=== PATIENT | male | born 1990 | race Hispanic/Latino ===

== ENCOUNTER 2016-11-17 17:55 | Emergency (ER) | payer BC ==
[2016-11-17 18:08] VITALS: BMI 20.8
[2016-11-17 18:11] VITALS: TEMP 98.5
--- NOTE | 2016-11-17 18:44 | ED PDOC ---
Arrival/HPI - General Chief Complaint: Male Genitourinary Time Seen by Provider: 11/17/16 18:16 Historian: Patient - History of Present Illness Narrative History of Present Illness (Text): 11/17/16 18:40 Patient is a 26 yo male presents to ED stating that this morning he experience sudden onset of left testicle pain, worse with ambulation and now radiating to left groin. Pain sharp and stabbing. Denies hematuria or dysuria. Denies rash. Denies swelling. Denies prior history of urinary tract infection or STD. Denies masses or swelling. Denies flank pain. Time/Duration: Prior to Arrival Symptom Onset: Sudden Past Medical History - Provider Review Nursing Documentation Reviewed: Yes - Infectious Disease Hx of Infectious Diseases: None - Tetanus Immunization Tetanus Immunization: Unknown - Past Medical History Past Medical History: No Previous - Cardiac Hx Cardiac Disorders: No - Pulmonary Hx Respiratory Disorders: No - Neurological Hx Neurological Disorder: No - HEENT Hx HEENT Disorder: No - Renal Hx Renal Disorder: No - Endocrine/Metabolic Hx Endocrine Disorders: No - Hematological/Oncological Hx Blood Transfusions: No Hx Blood Transfusion Reaction: No - Integumentary Hx Dermatological Disorder: No - Musculoskeletal/Rheumatological Hx Musculoskeletal Disorders: No Hx Falls: No - Gastrointestinal Hx Gastrointestinal Disorders: No - Genitourinary/Gynecological Hx Genitourinary Disorders: No - Psychiatric Hx Depression: Yes Hx Substance Use: No - Past Surgical History Past Surgical History: No Previous - Surgical History Hx Appendectomy: Yes - Anesthesia Hx Anesthesia Reactions: No Hx Malignant Hyperthermia: No - Suicidal Assessment Feels Threatened In Home Enviroment: No Family/Social History - Physician Review Nursing Documentation Reviewed: Yes Family/Social History: No Known Family HX Smoking Status: Current Some Days Smoker Hx Alcohol Use: Yes Frequency of alcohol use: Socially Amount per day: 4 Hx Substance Use: No Hx Substance Use Treatment: No Allergies/Home Meds Allergies/Adverse Reactions: Allergies No Known Allergies Allergy (Verified 05/14/13 15:46) Review of Systems - Review of Systems Constitutional: absent: Fevers Eyes: absent: Vision Changes Respiratory: absent: SOB Cardiovascular: absent: Chest Pain Gastrointestinal: Abdominal Pain (left inguinal pain). absent: Nausea, Vomiting Genitourinary Male: Other (left testicle pain). absent: Dysuria, Frequency, Hematuria, Urinary Output Changes Musculoskeletal: absent: Back Pain, Neck Pain Skin: absent: Rash Neurological: absent: Headache, Focal Weakness Hemo/Lymphatic: absent: Easy Bleeding Physical Exam Vital Signs Reviewed: Yes Vital Signs Temp Pulse Resp BP Pulse Ox 11/17/16 20:52 88 18 116/66 96 11/17/16 19:00 89 18 106/71 97 11/17/16 17:55 98.5 F 99 H 16 104/69 97 Temperature: Afebrile Pain Distress: Mild - Systems Exam Head: Present: Atraumatic Mouth: Present: Moist Mucous Membranes Neck: Present: Normal Range of Motion Respiratory/Chest: Present: Clear to Auscultation. No: Respiratory Distress Cardiovascular: Present: Regular Rate and Rhythm Abdomen: Present: Normal Bowel Sounds, Other. No: Tenderness, Distention, Peritoneal Signs Rectal: No: Gross Blood Genitourinary Male: Present: Testicle Tenderness, Other (focal tenderness on palpation of left testicle superiorly, no edema or erythema, cremaster reflex is intact). No: Penile Discharge, Penile Swelling, Masses, Erythema, Hernias, Testicle Swelling Neurological: Present: Motor Func Grossly Intact, Normal Sensory Function, Other (cremaster intact) Psychiatric: Present: Alert, Normal Concentration Medical Decision Making ED Course and Treatment: 11/17/16 21:50 Impression: Patient is a 26 yo male, sexually active, single partner, denies prior history of UTI or STDs, presents with sudden onset of left testicle pain radiating to groin. No rash noted. Exam not consistent with torsion. Denies urinary difficulty. Denies lifting or exertion today. No incarcerated hernias palpated. Differential Diagnosis included but are not limited to: Epididymitis, cyst, hernia, muscle strain Plan: ultrasound and urinalysis, ct abdomen/pelvis pending ultrasound results. Progress Notes: CT Abdomen and Pelvis Without Intravenous Contrast EXAM DATE/TIME: 11/17/2016 7:44 PM COMPARISON: No relevant prior studies available. FINDINGS: LOWER THORAX: No infiltrate seen in the lung bases. ABDOMEN: LIVER: No acute abnormality of the liver identified. GALLBLADDER AND BILE DUCTS: No CT evidence of acute cholecystitis. No evidence of significant biliary ductal dilatation. PANCREAS: No CT evidence of acute pancreatitis. SPLEEN: No acute abnormality of the spleen identified. ADRENALS: No acute abnormality of the adrenal glands identified. KIDNEYS AND URETERS: No acute abnormality of the kidneys seen. No renal stones, hydronephrosis, or hydroureter seen. STOMACH AND BOWEL: No acute abnormality of the stomach, small bowel or colon identified. No evidence of bowel obstruction. APPENDIX: Normal appendix is not seen, and there is a reported history of previous appendectomy. PELVIS: BLADDER: No acute abnormality of the bladder identified. REPRODUCTIVE: No acute abnormality of the reproductive organs is seen. ABDOMEN and PELVIS: INTRAPERITONEAL SPACE: No evidence of free intraperitoneal air or fluid. BONES/JOINTS: No acute fractures or other acute bony abnormality noted. SOFT TISSUES: No acute abnormality of the visualized soft tissues is seen. VASCULATURE: No evidence of abdominal aortic aneurysm. No evidence of periaortic hemorrhage. LYMPH NODES: No evidence of diffuse lymphadenopathy. IMPRESSION: - No evidence of significant acute process on this unenhanced exam. No definite cause for pain identified. - See above for remaining findings. US Scrotum EXAM DATE/TIME: 11/17/2016 6:23 PM FINDINGS: Right testicle: Measures 4.3 x 2.4 x 2.4 cm. Demonstrates scattered, tiny echogenic foci, most compatible with testicular microcalcifications. Otherwise within normal limits in appearance. No masses visualized. Flow seen in the right testicle on color and Doppler imaging , with no evidence of torsion. Right epididymis: Within normal limits in appearance. Head measures 1.3 x 1.0 cm. Left testicle: Measures 4.4 x 2.3 x 2.7 cm. Demonstrates scattered, tiny echogenic foci, most compatible with testicular microcalcifications. Otherwise within normal limits in appearance. No masses visualized. Flow seen in the left testicle on color and Doppler imaging, with no evidence of torsion. Left epididymis: Within normal limits in appearance. Head measures 1.4 x 1.1 cm. Hydrocoele: None seen. Varicocele: None seen. IMPRESSION: No evidence of testicular torsion or other acute abnormality. Findings consistent with bilateral testicular microlithiasis. There are scattered microcalcifications in the testes bilaterally. This finding has a questionable association with testicular carcinoma. If the patient has any risk factors for testicular carcinoma, such as undescended testes, recommended followup ultrasound for surveillance. See above for remaining findings. I have discussed in length patient's ultrasound findings, specifically reading of microlithiasis. I discussed risks associated with this but also reached out to on-call urologist Dr. Pearl Hanson and arranged outpatient follow-up in 2 days for abnormal ultrasound findings as well as pain. On re-exam, pain improved. No edema or erythema. Advised NSAIDS and elevation. Cannot exclude epididymitis given location and specific pain. No incarcerated hernia palpated. NO rash palpated. No penile discharge or dysuria reported. Patient discharged with all questions answered as well as need for follow-up with urologist expressed and understood. - Lab Interpretations Microbiology Results: Microbiology Results 11/17/16 18:55 Urine Urine Culture - Final No Growth (<1,000 CFU/ML) Lab Results: 11/17/16 20:20 11/17/16 20:20 Lab Results 11/17/16 20:20: Sodium 141, Potassium 3.8, Chloride 105, Carbon Dioxide 25, Anion Gap 15, BUN 20, Creatinine 1.2, Est GFR ( Amer) > 60, Est GFR (Non- Af Amer) > 60, Random Glucose 97, Calcium 9.3, Total Bilirubin 0.2, AST 16, ALT 28, Alkaline Phosphatase 73, Total Protein 6.5, Albumin 4.4, Globulin 2.2, Albumin/Globulin Ratio 2.0 H 11/17/16 20:20: WBC 5.3, RBC 5.35, Hgb 14.6, Hct 42.4, MCV 79.3 L, MCH 27.3, MCHC 34.4, RDW 12.6, Plt Count 201, MPV 10.8, Gran % 50.3, Lymph % (Auto) 39.7 H , Braxton % (Auto) 7.7 H, Eos % (Auto) 2.1, Baso % (Auto) 0.2, Gran # 2.68, Lymph # 2.1, Braxton # 0.4, Eos # 0.1, Baso # 0.01 11/17/16 18:55: Urine Color Yellow, Urine Appearance Clear, Urine pH 6.0, Ur Specific [place] 1.025, Urine Protein Negative, Urine Glucose (UA) Negative, Urine Ketones Negative, Urine Blood Negative, Urine Nitrate Negative, Urine Bilirubin Negative, Urine Urobilinogen 0.2, Ur Leukocyte Esterase Negative - RAD Interpretation Radiology Orders: 11/17/16 18:23 TESTES DUPLEX COMPLETE [US] Stat 11/17/16 19:44 ABD & PELVIS W/O PO OR IV CONT [CT] Stat - Medication Orders Current Medication Orders: Discontinued Medications Ibuprofen (Motrin Tab) 400 mg PO ONCE STA Stop: 11/17/16 18:26 Last Admin: 11/17/16 18:59 Dose: 400 mg - Scribe Statement The provider has reviewed the documentation as recorded by the Erin Sampson Provider Scribe Attestation: All medical record entries made by the Scribe were at my direction and personally dictated by me. I have reviewed the chart and agree that the record accurately reflects my personal performance of the history, physical exam, medical decision making, and the department course for this patient. I have also personally directed, reviewed, and agree with the discharge instructions and disposition. Disposition/Present on Arrival - Present on Arrival Any Indicators Present on Arrival: No History of DVT/PE: No History of Uncontrolled Diabetes: No Urinary Catheter: No History of Decub. Ulcer: No History Surgical Site Infection Following: None - Disposition Have Diagnosis and Disposition been Completed?: Yes Diagnosis: Testicle pain, Testicular microlithiasis, Groin pain Disposition: HOME/ ROUTINE Disposition Time: 20:00 Patient Plan: Discharge Condition: GOOD Discharge Instructions (ExitCare): Epididymitis (ED), Testicle Pain (ED) Additional Instructions: Follow-up with urologist Dr. Ovidio Hanson this SATURDAY, call Dr. Hanson at [phone] on Saturday to set up appointment. Results of ultrasound have been reviewed with you, please follow-up findings of "microlithiasis" with urologist. If you develop any swelling or redness to testicle, any change or increase in pain, any masses to groin or testicle, any rash, any flank or abdominal pain, any nausea or vomiting, any difficulty urinating, any persistent or worsening of symptoms, get rechecked. Take antibiotics as directed. Take ibuprofen every 6-8 hours as needed for pain. Keep testicle elevated. No heavy lifting or strenuous activity or sexual activity until cleared by urologist. Prescriptions: levoFLOXacin [Levaquin] 500 mg PO DAILY #10 tab Ibuprofen [Motrin Tab] 400 mg PO Q8 PRN #12 tab PRN Reason: Pain, Mild (1-3) Referrals: PCP,NO [Non-Staff] - Follow up with primary Vaughn Hanson MD [Staff Provider] - Follow up with primary Forms: [employer] ([place])
[2016-11-17 19:01] VITALS: RESP 18
[2016-11-17 19:33] LABS: URINE BILIRUBIN NEGATIVE (NEGATIVE); URINE BLOOD NEGATIVE (NEGATIVE); URINE GLUCOSE (UA) NEGATIVE (NEGATIVE); URINE KETONE NEGATIVE (NEGATIVE); URINE LEUKOCYTE ESTERASE NEGATIVE Leu/uL (NEGATIVE); URINE PROTEIN NEGATIVE mg/dL (<30 mg/dL); URINE UROBILINOGEN 0.2 E.U./dL (<1 E.U./dL)
[2016-11-17 19:36] LABS: URINE APPEARANCE CLEAR (CLEAR); URINE COLOR YELLOW (YELLOW)
--- NOTE | 2016-11-17 19:41 | US ---
EXAM: US Scrotum EXAM DATE/TIME: 11/17/2016 6:23 PM CLINICAL HISTORY: 26 years old, male; Pain; Scrotum pain; Additional info: Left testicle pain TECHNIQUE: Real-time ultrasound of the scrotum with color Doppler and image documentation. COMPARISON: No relevant prior studies available. FINDINGS: Right testicle: Measures 4.3 x 2.4 x 2.4 cm. Demonstrates scattered, tiny echogenic foci, most compatible with testicular microcalcifications. Otherwise within normal limits in appearance. No masses visualized. Flow seen in the right testicle on color and Doppler imaging, with no evidence of torsion. Right epididymis: Within normal limits in appearance. Head measures 1.3 x 1.0 cm. Left testicle: Measures 4.4 x 2.3 x 2.7 cm. Demonstrates scattered, tiny echogenic foci, most compatible with testicular microcalcifications. Otherwise within normal limits in appearance. No masses visualized. Flow seen in the left testicle on color and Doppler imaging, with no evidence of torsion. Left epididymis: Within normal limits in appearance. Head measures 1.4 x 1.1 cm. Hydrocoele: None seen. Varicocele: None seen. IMPRESSION: No evidence of testicular torsion or other acute abnormality. Findings consistent with bilateral testicular microlithiasis. There are scattered microcalcifications in the testes bilaterally. This finding has a questionable association with testicular carcinoma. If the patient has any risk factors for testicular carcinoma, such as undescended testes, recommended followup ultrasound for surveillance. See above for remaining findings.
[2016-11-17 20:32] LABS: BASO # 0.01 K/mm3 (0.0-2.0); BASO % 0.2 % (0.0-3.0); EOS # 0.1 (0.0-0.7); EOS % 2.1 % (1.5-5.0); GRAN # 2.68 (1.4-6.5); GRAN % 50.3 % (50.0-68.0); HEMATOCRIT 42.4 % (42.0-52.0); LYMPH # 2.1 (1.2-3.4); LYMPH % 39.7 % (22.0-35.0); MEAN CELL VOLUME 79.3 fl (80.0-105.0); MEAN CORPUSCULAR HEMOGLOBIN 27.3 pg (25.0-35.0); MEAN CORPUSCULAR HGB CONC 34.4 g/dl (31.0-37.0); MEAN PLATELET VOLUME 10.8 fl (7.0-11.0); MONO # 0.4 (0.1-0.6); MONO % 7.7 % (1.0-6.0); RED CELL DISTRIBUTION WIDTH 12.6 % (11.5-14.5); WHITE BLOOD COUNT 5.3 10^3/ul (4.5-11.0)
[2016-11-17 20:42] LABS: ALKALINE PHOSPHATASE 73 U/L (38-133); ALT/SGPT 28 U/L (7-56); AST/SGOT 16 U/L (15-59); BILIRUBIN,TOTAL 0.2 mg/dL (0.2-1.3); BLOOD UREA NITROGEN 20 mg/dL (7-21); CALCIUM 9.3 mg/dL (8.4-10.5); CARBON DIOXIDE 25 mmol/L (21-33); CHLORIDE 105 mmol/L (98-107); GFR AFRICAN-AMERICAN > 60; GLUCOSE,RANDOM 97 mg/dL (70-110); POTASSIUM 3.8 mmol/L (3.6-5.0); SODIUM 141 mmol/L (132-148); TOTAL PROTEIN 6.5 g/dL (5.8-8.3)
--- NOTE | 2016-11-17 20:43 | CT ---
EXAM: CT Abdomen and Pelvis Without Intravenous Contrast EXAM DATE/TIME: 11/17/2016 7:44 PM CLINICAL HISTORY: 26 years old, male; Pain; Abdominal pain; Flank; Left; Prior surgery; Surgery type: Appendectomy; Additional info: Left flank pain TECHNIQUE: Axial computed tomography images of the abdomen and pelvis without intravenous contrast. All CT scans at this facility use one or more dose reduction techniques, viz.: automated exposure control; ma/kV adjustment per patient size (including targeted exams where dose is matched to indication; i.e. head); or iterative reconstruction technique. Coronal and sagittal reformatted images were created and reviewed. COMPARISON: No relevant prior studies available. FINDINGS: LOWER THORAX: No infiltrate seen in the lung bases. ABDOMEN: LIVER: No acute abnormality of the liver identified. GALLBLADDER AND BILE DUCTS: No CT evidence of acute cholecystitis. No evidence of significant biliary ductal dilatation. PANCREAS: No CT evidence of acute pancreatitis. SPLEEN: No acute abnormality of the spleen identified. ADRENALS: No acute abnormality of the adrenal glands identified. KIDNEYS AND URETERS: No acute abnormality of the kidneys seen. No renal stones, hydronephrosis, or hydroureter seen. STOMACH AND BOWEL: No acute abnormality of the stomach, small bowel or colon identified. No evidence of bowel obstruction. APPENDIX: Normal appendix is not seen, and there is a reported history of previous appendectomy. PELVIS: BLADDER: No acute abnormality of the bladder identified. REPRODUCTIVE: No acute abnormality of the reproductive organs is seen. ABDOMEN and PELVIS: INTRAPERITONEAL SPACE: No evidence of free intraperitoneal air or fluid. BONES/JOINTS: No acute fractures or other acute bony abnormality noted. SOFT TISSUES: No acute abnormality of the visualized soft tissues is seen. VASCULATURE: No evidence of abdominal aortic aneurysm. No evidence of periaortic hemorrhage. LYMPH NODES: No evidence of diffuse lymphadenopathy. IMPRESSION: - No evidence of significant acute process on this unenhanced exam. No definite cause for pain identified. - See above for remaining findings.
[2016-11-17 21:45] VITALS: BP 116/66; PULSE 88; O2SAT 96
== END 2016-11-17 22:10 | disposition home or self-care (01) ==
LOC: ED 17:55
DX: N50.812 Left testicular pain (principal); R10.30 Lower abdominal pain, unspecified; N50.89 Other specified disorders of the male genital organs; F17.210 Nicotine dependence, cigarettes, uncomplicated

== ENCOUNTER 2017-01-10 09:55 | Emergency (ER) | payer BC, MEDICAID, OTHER ==
[2017-01-10 09:56] VITALS: BMI 20.8
--- NOTE | 2017-01-10 10:22 | ED PDOC ---
Arrival/HPI - General Chief Complaint: Chest Pain Time Seen by Provider: 01/10/17 10:08 Historian: Patient - History of Present Illness Narrative History of Present Illness (Text): 01/10/17 10:18 Patient c/o left sided pain in the chest area, described as sharp pinched sensation that lasts up to few seconds, going on for 1 week, up to 10 times a day. Patient denies any signs of upper respiratory infection, SOB, fever. Patient sts nothing makes this pain better or worse. Patient denies smoking/ drugs. 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 Symptom Onset: Sudden Symptom Course: Intermittent Quality: Other (pinching) Severity Level: 6 Activities at Onset: Other (no specific activity triggers his symptoms) Past Medical History - Provider Review Nursing Documentation Reviewed: Yes - Past History Past History: No Previous - Infectious Disease Hx of Infectious Diseases: None - Tetanus Immunization Tetanus Immunization: Unknown - Past Medical History Past Medical History: No Previous - Cardiac Hx Cardiac Disorders: No - Pulmonary Hx Respiratory Disorders: No - Neurological Hx Neurological Disorder: No - HEENT Hx HEENT Disorder: No - Renal Hx Renal Disorder: No - Endocrine/Metabolic Hx Endocrine Disorders: No - Hematological/Oncological Hx Blood Transfusions: No Hx Blood Transfusion Reaction: No - Integumentary Hx Dermatological Disorder: No - Musculoskeletal/Rheumatological Hx Musculoskeletal Disorders: No Hx Falls: No - Gastrointestinal Hx Gastrointestinal Disorders: No - Genitourinary/Gynecological Hx Genitourinary Disorders: No - Psychiatric Hx Substance Use: No - Past Surgical History Past Surgical History: No Previous - Surgical History Hx Appendectomy: Yes - Anesthesia Hx Anesthesia Reactions: No Hx Malignant Hyperthermia: No - Suicidal Assessment Feels Threatened In Home Enviroment: No Family/Social History Family/Social History: No Known Family HX Smoking Status: Former Smoker Hx Alcohol Use: No Amount per day: 4 Hx Substance Use: No Hx Substance Use Treatment: No Allergies/Home Meds Allergies/Adverse Reactions: Allergies No Known Allergies Allergy (Verified 01/10/17 10:06) Review of Systems - Physician Review All systems were reviewed & negative as marked: Yes Physical Exam Vital Signs Temp Pulse Resp BP Pulse Ox 01/10/17 12:31 62 17 179/80 H 100 01/10/17 11:18 65 17 121/75 100 01/10/17 09:56 98.0 F 66 16 120/71 99 Temperature: Afebrile Blood Pressure: Normal Pulse: Regular Respiratory Rate: Normal Appearance: Positive for: Well-Appearing Pain Distress: None Mental Status: Positive for: Alert and Oriented X 3 - Systems Exam Head: Present: Atraumatic, Normocephalic Pupils: Present: PERRL Extroacular Muscles: Present: EOMI Conjunctiva: Present: Normal Mouth: Present: Moist Mucous Membranes Neck: Present: Normal Range of Motion Respiratory/Chest: Present: Clear to Auscultation, Good Air Exchange. No: Respiratory Distress, Accessory Muscle Use, Wheezes, Tender to Palpation Cardiovascular: Present: Regular Rate and Rhythm, Normal S1, S2. No: Murmurs Abdomen: Present: Normal Bowel Sounds. No: Tenderness, Distention Back: Present: Normal Inspection Upper Extremity: Present: Normal Inspection, Normal ROM. No: Edema Lower Extremity: Present: Normal Inspection. No: Edema, CALF TENDERNESS Neurological: Present: GCS=15, Gait Normal Skin: Present: Warm, Dry, Normal Color. No: Rashes Medical Decision Making ED Course and Treatment: 01/10/17 12:21 On re-evaluation patient is stable and asymptomatic now. He is stable to be d/c home with Clinic follow up. - RAD Interpretation Radiology Orders: 01/10/17 10:16 CHEST TWO VIEWS (PA/LAT) [RAD] Stat No acute changes Sole Stapler Welt: ED Physician - EKG Interpretation EKG Interpretation (Text): 01/10/17 10:26 NSR, HR 60 BPM, no acute changes Interpreted by ED Physician: Yes Type: 12 lead EKG Comparison: No previous EKG avail. Disposition/Present on Arrival - Present on Arrival Any Indicators Present on Arrival: No History of DVT/PE: No History of Uncontrolled Diabetes: No Urinary Catheter: No History of Decub. Ulcer: No History Surgical Site Infection Following: None - Disposition Have Diagnosis and Disposition been Completed?: Yes Diagnosis: Chest pain in adult Disposition: HOME/ ROUTINE Disposition Time: 12:22 Patient Plan: Discharge Condition: STABLE Discharge Instructions (ExitCare): Chest Pain (ED) Additional Instructions: Follow up with PMD/clinic within 1-2 days. Return to ED if feel worse. Prescriptions: Ibuprofen [Motrin Tab] 600 mg PO Q8 #30 tab Referrals: [facility] at [facility] [place] [Outside] - Follow up with primary Forms: [employer] ([place])
[2017-01-10 10:37] VITALS: TEMP 98
[2017-01-10 11:19] VITALS: RESP 17; O2SAT 100
[2017-01-10 12:33] VITALS: BP 179/80; PULSE 62
--- NOTE | 2017-01-10 12:42 | RAD ---
HISTORY: left sharp CP COMPARISON: 08/31/2015 TECHNIQUE: Chest PA and lateral FINDINGS: LUNGS: No active pulmonary disease. PLEURA: No significant pleural effusion identified. No pneumothorax apparent. CARDIOVASCULAR: Normal. OSSEOUS STRUCTURES: No significant abnormalities. VISUALIZED UPPER ABDOMEN: Normal. OTHER FINDINGS: None. IMPRESSION: No active disease.
--- NOTE | 2017-01-10 17:37 | CARD ---
APPROVED REPORT EKG Measurement Heart [id number] <Conclusion> Normal sinus rhythm Normal ECG
== END 2017-01-10 12:33 | disposition home or self-care (01) ==
LOC: ED 09:55
DX: R07.9 Chest pain, unspecified (principal)

== ENCOUNTER 2017-01-10 19:52 | Emergency (ER) | payer MEDICAID, OTHER ==
[2017-01-10 19:53] VITALS: BMI 20.8
[2017-01-10 20:02] VITALS: RESP 16; TEMP 98.2; O2SAT 100
[2017-01-10 20:24] LABS: BASO # 0.01 K/mm3 (0.0-2.0); BASO % 0.2 % (0.0-3.0); EOS # 0.1 (0.0-0.7); EOS % 1.7 % (1.5-5.0); GRAN # 2.37 (1.4-6.5); GRAN % 44.9 % (50.0-68.0); HEMATOCRIT 45.5 % (42.0-52.0); LYMPH # 2.3 (1.2-3.4); LYMPH % 43.4 % (22.0-35.0); MEAN CELL VOLUME 80.7 fl (80.0-105.0); MEAN CORPUSCULAR HEMOGLOBIN 27.3 pg (25.0-35.0); MEAN CORPUSCULAR HGB CONC 33.8 g/dl (31.0-37.0); MONO # 0.5 (0.1-0.6); MONO % 9.8 % (1.0-6.0); RED CELL DISTRIBUTION WIDTH 12.8 % (11.5-14.5); WHITE BLOOD COUNT 5.3 10^3/ul (4.5-11.0)
[2017-01-10 20:33] LABS: ALKALINE PHOSPHATASE 80 U/L (38-126); ALT/SGPT 28 U/L (7-56); AST/SGOT 22 U/L (17-59); BILIRUBIN,TOTAL 0.6 mg/dL (0.2-1.3); BLOOD UREA NITROGEN 20 mg/dL (7-21); CALCIUM 9.8 mg/dL (8.4-10.5); CARBON DIOXIDE 30 mmol/L (21-33); CHLORIDE 102 mmol/L (98-107); GFR AFRICAN-AMERICAN > 60; GLUCOSE,RANDOM 93 mg/dL (70-110); MAGNESIUM 2.1 mg/dL (1.7-2.2); POTASSIUM 4.1 mmol/L (3.6-5.0); SODIUM 142 mmol/L (132-148)
--- NOTE | 2017-01-10 20:34 | ED PDOC ---
Arrival/HPI - General Chief Complaint: Chest Pain Time Seen by Provider: 01/10/17 19:56 Historian: Patient - History of Present Illness Narrative History of Present Illness (Text): 01/10/17 20:20 26 year old male smoker, whose past medical history includes , presents to the emergency department complaining of chest pain. Patient was discharged earlier today for similar problem. Patient reports he has had ongoing intermittent chest pain for 1 week and today experience a sharp sensation. Patient became concerned and came to the ER earlier today. EKG and Chest X-ray was done and results were normal and patient was sent home. Prior to arrival, patient was home watching television and randomly began experiencing similar symptoms. Patient states "sharp" pain occurs along left side of chest and a "shooting-like " pain around the right side. He notes also experiencing shortness of breath, palpitations, dizziness (room-spinning), some lightheadedness, but denies of any nausea, vomiting, abdominal pain, cough, appetite changes, leg swelling, or any other complaints. 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 No prolonged driving or immobilization or recent surgeries. Patient states he has no anxiety or panic attacks that would cause symptoms, and does not believe pain is muscular- related. Smokes 2-3 cigarettes per day. PMD: Dr. Cecil Antoine Time/Duration: Prior to Arrival Symptom Onset: Sudden Symptom Course: Unchanged Past Medical History - Provider Review Nursing Documentation Reviewed: Yes - Past History Past History: No Previous - Infectious Disease Hx of Infectious Diseases: None - Tetanus Immunization Tetanus Immunization: Unknown - Past Medical History Past Medical History: No Previous - Cardiac Hx Cardiac Disorders: No - Pulmonary Hx Respiratory Disorders: No - Neurological Hx Neurological Disorder: No - HEENT Hx HEENT Disorder: No - Renal Hx Renal Disorder: No - Endocrine/Metabolic Hx Endocrine Disorders: No - Hematological/Oncological Hx Blood Transfusions: No Hx Blood Transfusion Reaction: No - Integumentary Hx Dermatological Disorder: No - Musculoskeletal/Rheumatological Hx Musculoskeletal Disorders: No Hx Falls: No - Gastrointestinal Hx Gastrointestinal Disorders: No - Genitourinary/Gynecological Hx Genitourinary Disorders: No - Psychiatric Hx Depression: Yes Hx Substance Use: No - Past Surgical History Past Surgical History: No Previous - Surgical History Hx Appendectomy: Yes - Anesthesia Hx Anesthesia Reactions: No Hx Malignant Hyperthermia: No - Suicidal Assessment Feels Threatened In Home Enviroment: No Family/Social History - Physician Review Nursing Documentation Reviewed: Yes Family/Social History: No Known Family HX Smoking Status: Current Some Days Smoker Hx Alcohol Use: Yes Amount per day: 4 Hx Substance Use: No Hx Substance Use Treatment: No Allergies/Home Meds Allergies/Adverse Reactions: Allergies No Known Allergies Allergy (Verified 01/10/17 20:03) Review of Systems - Physician Review All systems were reviewed & negative as marked: Yes - Review of Systems Respiratory: SOB. absent: Cough Cardiovascular: Chest Pain, Palpitations Gastrointestinal: absent: Abdominal Pain, Nausea, Vomiting, Appetite Changes Musculoskeletal: absent: Other (no leg swelling) Neurological: Dizziness (room-spinning sensation), Other (some lightheadedness) Psychiatric: absent: Anxiety, Other (no panic attacks) Physical Exam Vital Signs Reviewed: Yes Vital Signs Temp Pulse Resp BP Pulse Ox 01/10/17 20:00 98.2 F 80 16 137/82 100 Temperature: Afebrile Blood Pressure: Normal Pulse: Regular Respiratory Rate: Normal Appearance: Positive for: Well-Appearing Pain Distress: None Mental Status: Positive for: Alert and Oriented X 3 - Systems Exam Head: Present: Atraumatic, Normocephalic Pupils: Present: PERRL Extroacular Muscles: Present: EOMI Conjunctiva: Present: Normal Mouth: Present: Moist Mucous Membranes Neck: Present: Normal Range of Motion Respiratory/Chest: Present: Clear to Auscultation, Good Air Exchange. No: Respiratory Distress, Accessory Muscle Use, Tender to Palpation Cardiovascular: Present: Regular Rate and Rhythm, Normal S1, S2. No: Murmurs Abdomen: Present: Normal Bowel Sounds. No: Tenderness, Distention, Peritoneal Signs Back: Present: Normal Inspection Upper Extremity: Present: Normal Inspection. No: Cyanosis, Edema Lower Extremity: Present: Normal Inspection. No: Edema Neurological: Present: GCS=15, CN II-XII Intact, Speech Normal Skin: Present: Warm, Dry, Normal Color. No: Rashes Psychiatric: Present: Alert, Oriented x 3, Normal Insight, Normal Concentration Medical Decision Making ED Course and Treatment: 01/10/17 20:26 Impression: 26 year old male with chest pain. No acute findings on physical exam. Differential Diagnosis included but are not limited to: Muscular vs Anxiety; less likely ACS vs PE Plan: -- EKG -- Labs -- Motrin -- Reassess and disposition Prior Visits: Notes and results from previous visits were reviewed. Patient was last seen in the emergency department on Progress Notes: EKG: Ordered, reviewed, and independently interpreted the EKG. Rate : 76 BPM Rhythm : NSR Interpretation : No ST-segment elevations or depressions, no T-wave inversions, normal intervals. Comparison : No previous EKG for comparison. Earlier Chest X-ray result: 01/10/2017 12:41 Chest X-ray IMPRESSION: No active disease. Dictator: Marcus Gordon MD 01/10/17 21:15 Patient's labs were normal. I explained the results to him. He feels better and is no longer having symptoms. I explained to him that he needs to follow up with his primary care doctor and to return to the ED if symptoms worsen or any other concern. 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 - Lab Interpretations Lab Results: 01/10/17 20:17 01/10/17 20:17 Lab Results 01/10/17 20:17: Sodium 142, Potassium 4.1, Chloride 102, Carbon Dioxide 30, Anion Gap 14, BUN 20, Creatinine 1.1, Est GFR ( Amer) > 60, Est GFR (Non- Af Amer) > 60, Random Glucose 93, Calcium 9.8, Magnesium 2.1, Total Bilirubin 0.6, AST 22, ALT 28, Alkaline Phosphatase 80, Lactate Dehydrogenase 340, Total Creatine Kinase 54, Troponin I < 0.01, Total Protein 7.0, Albumin 4.7, Globulin 2.3, Albumin/Globulin Ratio 2.0 H 01/10/17 20:17: PT 11.7, INR 1.08, APTT 27.5, D-Dimer, Quantitative 0.19 01/10/17 20:17: WBC 5.3, RBC 5.64, Hgb 15.4, Hct 45.5, MCV 80.7, MCH 27.3, MCHC 33.8, RDW 12.8, Plt Count 189, MPV 11.0, Gran % 44.9 L, Lymph % (Auto) 43.4 H, Bond % (Auto) 9.8 H, Eos % (Auto) 1.7, Baso % (Auto) 0.2, Gran # 2.37, Lymph # 2.3, Bond # 0.5, Eos # 0.1, Baso # 0.01 I have reviewed the lab results: Yes Interpretation: All labs normal - RAD Interpretation Radiology Orders: CXR nl Stock Selector: ED Physician - Medication Orders Current Medication Orders: Discontinued Medications Ibuprofen (Motrin Tab) 600 mg PO STAT STA Stop: 01/10/17 20:14 Last Admin: 01/10/17 20:20 Dose: 600 mg MAR Pain/Vitals Document 01/10/17 20:20 JOL (Rec: 01/10/17 20:44 [id number] Pain Reassessment Is This A Pain ReAssessment? No Sleep Is patient sleeping during reassessment? No Presence of Pain Presence of Pain Yes Pain Scale Used Pain Scale Used Numeric Location Pain Location Body Site Chest Intensity 7 Scale Used Numeric ALIDA Risk Score for UA/NSTEMI - ALIDA Risk Score Age > 64: NO 3 or more CAD Risk Factors: NO Known CAD (Stenosis greater than 50%): NO Aspirin use in past 7 days: NO Severe Angina: NO EKG ST changes greater than 0.5mm: NO Positive Cardiac Marker: NO ALIDA Score: 0 % risk at 14 days of: all cause mortality, new or recurrent CT, or severe recurrent ischemia requiring urgen revascularization: 5% - Scribe Statement The provider has reviewed the documentation as recorded by the Erin Galindo Provider Scribe Attestation: All medical record entries made by the Scribbello were at my direction and personally dictated by me. I have reviewed the chart and agree that the record accurately reflects my personal performance of the history, physical exam, medical decision making, and the department course for this patient. I have also personally directed, reviewed, and agree with the discharge instructions and disposition. Disposition/Present on Arrival - Present on Arrival Any Indicators Present on Arrival: No History of DVT/PE: No History of Uncontrolled Diabetes: No Urinary Catheter: No History of Decub. Ulcer: No History Surgical Site Infection Following: None - Disposition Have Diagnosis and Disposition been Completed?: Yes Diagnosis: Chest pain Disposition: HOME/ ROUTINE Disposition Time: 21:45 Patient Plan: Discharge Condition: IMPROVED Discharge Instructions (ExitCare): Chest Pain (ED) Additional Instructions: John, thank you for letting us take care of you today. Your provider was Dr. Garcia. You were treated for Chest pain. The emergency medical care you received today was directed at your acute symptoms. If you were prescribed any medication, please fill it and take as directed. It may take several days for your symptoms to resolve. Return to the Emergency Department if your symptoms worsen, do not improve, or if you have any other problems. Please contact your doctor or call one of the physicians/clinics you have been referred to that are listed on the Patient Visit Information form that is included in your discharge packet. Bring any paperwork you were given at discharge with you along with any medications you are taking to your follow up visit. Our treatment cannot replace ongoing medical care by a primary care provider (PCP) outside of the emergency department. Thank you for allowing the [facility] team to be part of your care today. If you had an X-Ray or CT scan: A Radiologist will review the ED reading if any change in treatment is needed we will contact you. If you had a blood, urine, or wound culture: It will take several days for the results, if any change in treatment is needed we will contact you. If you had an STI test: It will take 48 hours for the results. Please call after 1 week if you have not heard back. Referrals: Cecil Antoine MD [Primary Care Provider] - Follow up with primary Forms: [employer] (Estonian)
[2017-01-10 20:36] LABS: INR 1.08 (0.93-1.08); PARTIAL THROMBOPLASTIN TIME 27.5 Seconds (23.7-30.8)
[2017-01-10 20:42] LABS: D DIMER 0.19 mg/L FEU (0-0.50)
[2017-01-10 20:48] LABS: TROPONIN I < 0.01 ng/mL
[2017-01-10 22:02] VITALS: BP 130/77; PULSE 77
--- NOTE | 2017-01-11 13:16 | CARD ---
APPROVED REPORT EKG Measurement Heart [id number] <Conclusion> Normal sinus rhythm Normal ECG
== END 2017-01-10 21:15 | disposition home or self-care (01) ==
LOC: ED 19:52
DX: R07.9 Chest pain, unspecified (principal)

== ENCOUNTER 2017-01-15 16:46 | Emergency (ER) | payer OTHER ==
[2017-01-15 16:46] VITALS: BMI 20.8
[2017-01-15 16:57] VITALS: RESP 18; TEMP 98.2; O2SAT 100
--- NOTE | 2017-01-15 17:27 | ED PDOC ---
Arrival/HPI - General Chief Complaint: Chest Pain Time Seen by Provider: 01/15/17 17:00 Historian: Patient - History of Present Illness Narrative History of Present Illness (Text): 01/15/17 17:20 A 26 year old male, who denies any past medical history, presents to the emergency department complaining of constant midsternal chest pain for the past 3 days. Patient describes the pain as a sharp sensation which intermittent radiation to left upper shoulder. He denies any relieving or exacerbating factors. Patient took Advil and Nexium, with no relief of symptoms. Patient denies any weight loss, fever, chills, nausea, vomiting, abdominal pain, shortness of breath, headache, dizziness or any other complaints. Patient says she smokes about 3 cigarettes per day but denies any drug use. PMD: Dr. Duong Antoine Time/Duration: Other (3 days) Symptom Course: Unchanged Quality: Other Context: Home Past Medical History - Provider Review Nursing Documentation Reviewed: Yes - Past History Past History: No Previous - Infectious Disease Hx of Infectious Diseases: None - Tetanus Immunization Tetanus Immunization: Unknown - Past Medical History Past Medical History: No Previous - Cardiac Hx Cardiac Disorders: No - Pulmonary Hx Respiratory Disorders: No - Neurological Hx Neurological Disorder: No - HEENT Hx HEENT Disorder: No - Renal Hx Renal Disorder: No - Endocrine/Metabolic Hx Endocrine Disorders: No - Hematological/Oncological Hx Blood Transfusions: No Hx Blood Transfusion Reaction: No - Integumentary Hx Dermatological Disorder: No - Musculoskeletal/Rheumatological Hx Musculoskeletal Disorders: No Hx Falls: No - Gastrointestinal Hx Gastrointestinal Disorders: No - Genitourinary/Gynecological Hx Genitourinary Disorders: No - Psychiatric Hx Depression: Yes Hx Substance Use: No - Past Surgical History Past Surgical History: No Previous - Surgical History Hx Appendectomy: Yes - Anesthesia Hx Anesthesia Reactions: No Hx Malignant Hyperthermia: No - Suicidal Assessment Feels Threatened In Home Enviroment: No Family/Social History - Physician Review Nursing Documentation Reviewed: Yes Family/Social History: No Known Family HX Smoking Status: Current Some Days Smoker Hx Alcohol Use: Yes Amount per day: 4 Hx Substance Use: No Hx Substance Use Treatment: No Allergies/Home Meds Allergies/Adverse Reactions: Allergies No Known Allergies Allergy (Verified 01/10/17 20:03) Review of Systems - Physician Review All systems were reviewed & negative as marked: Yes - Review of Systems Constitutional: absent: Weight Change, Fevers, Night Sweats Respiratory: absent: SOB Cardiovascular: Chest Pain Gastrointestinal: absent: Abdominal Pain, Nausea, Vomiting Neurological: absent: Headache, Dizziness Physical Exam Vital Signs Reviewed: Yes Vital Signs Temp Pulse Resp BP Pulse Ox 01/15/17 17:57 85 18 121/71 100 01/15/17 17:01 90 18 123/77 100 01/15/17 16:55 98.2 F 90 18 123/77 100 Temperature: Afebrile Blood Pressure: Normal Pulse: Regular Respiratory Rate: Normal Appearance: Positive for: Well-Appearing, Non-Toxic, Comfortable Pain Distress: None Mental Status: Positive for: Alert and Oriented X 3 - Systems Exam Head: Present: Atraumatic, Normocephalic Pupils: Present: PERRL Conjunctiva: Present: Normal Mouth: Present: Moist Mucous Membranes Pharnyx: Present: Normal. No: ERYTHEMA Neck: Present: Normal Range of Motion Respiratory/Chest: Present: Clear to Auscultation, Good Air Exchange, Tender to Palpation (to left sternal border around 5th ICS). No: Respiratory Distress, Accessory Muscle Use Cardiovascular: Present: Regular Rate and Rhythm, Normal S1, S2. No: Murmurs Abdomen: Present: Normal Bowel Sounds. No: Tenderness, Distention, Peritoneal Signs Back: Present: Normal Inspection Upper Extremity: Present: Normal Inspection. No: Cyanosis, Edema Lower Extremity: Present: Normal Inspection. No: Edema Neurological: Present: GCS=15, CN II-XII Intact, Speech Normal Skin: Present: Warm, Dry, Normal Color. No: Rashes Psychiatric: Present: Alert, Oriented x 3, Normal Insight, Normal Concentration Medical Decision Making ED Course and Treatment: 01/15/17 17:20 Impression: A 26 year old male with midsternal chest pain. Plan: -- Chest CT -- Valium and Toradol -- Reassess and disposition Progress Notes: 01/15/17 21:32 Patient with reproducible cp but with 3rd visit to the Emergency department for the same in the past week; CXR and labs unremarkable from 01/10 and EKG is unremarkable. Patient with testicular sono previously with calcifications - he followed up with and deemed not malignant; given possibility, patient CT chest done to r/o adenopathy, possible mass, PE - negative - given toradol and diazepam with out relief. Given protonix with relief - patient d/c on naprosyn but told to try nexium first daily and see if relief and f/u pcp. - RAD Interpretation Radiology Orders: 01/15/17 17:31 ANGIO CHEST PE PROTOCOL [CT] Stat - EKG Interpretation EKG Interpretation (Text): 01/15/17 21:29 NSR @ 90; normal intervals; normal axis; no ST/T changes Interpreted by ED Physician: Yes Type: 12 lead EKG - Medication Orders Current Medication Orders: Discontinued Medications Diazepam (Valium) 2.5 mg PO ONCE STA Stop: 01/15/17 17:25 Last Admin: 01/15/17 17:33 Dose: 2.5 mg Sodium Chloride (Sodium Chloride 0.9%) 1,000 mls @ 999 mls/hr IV .Q1H1M STA Stop: 01/15/17 18:32 Last Admin: 01/15/17 17:38 Dose: 999 mls/hr eMAR Start Stop Document 01/15/17 17:38 NH (Rec: 01/15/17 17:38 [id number][facility] Intravenous Solution Start Date 01/15/17 Start Time 17:38 Ketorolac Tromethamine (Toradol) 30 mg IVP STAT STA Stop: 01/15/17 17:31 Last Admin: 01/15/17 17:39 Dose: 30 mg MAR Pain Assessment Document 01/15/17 17:39 NH (Rec: 01/15/17 17:39 [id number]) Pain Reassessment Is this a pain reassessment? No Sleep Is patient sleeping during reassessment? No Presence of Pain Presence of Pain Yes Pain Scale Used Pain Scale Used Numeric Location Pain Location Body Site Chest Description Description Constant Intensity of Pain at present 9 Acceptable Level of Pain 2 Aggravating Factors Changing Position IVP Administration Document 01/15/17 17:39 NH (Rec: 01/15/17 17:39 [id number]) Charges for Administration # of IVP Administrations 1 Pantoprazole Sodium (Protonix Inj) 40 mg IVP ONCE STA Stop: 01/15/17 19:51 Last Admin: 01/15/17 20:48 Dose: 40 mg IVP Administration Document 01/15/17 20:48 SS (Rec: 01/15/17 20:48 SS [id number]) Charges for Administration # of IVP Administrations 1 - Scribe Statement The provider has reviewed the documentation as recorded by the Erin Monahan Provider Erin Attestation: All medical record entries made by the Scribe were at my direction and personally dictated by me. I have reviewed the chart and agree that the record accurately reflects my personal performance of the history, physical exam, medical decision making, and the department course for this patient. I have also personally directed, reviewed, and agree with the discharge instructions and disposition. Disposition/Present on Arrival - Present on Arrival Any Indicators Present on Arrival: No History of DVT/PE: No History of Uncontrolled Diabetes: No Urinary Catheter: No History of Decub. Ulcer: No History Surgical Site Infection Following: None - Disposition Have Diagnosis and Disposition been Completed?: Yes Diagnosis: Atypical chest pain Disposition: HOME/ ROUTINE Disposition Time: 21:10 Patient Plan: Discharge Patient Problems: Current Active Problems Problem Status Onset Atypical chest pain Acute Condition: GOOD Discharge Instructions (ExitCare): Chest Pain (ED) Additional Instructions: Take the medications as prescribed. Follow up with Dr. Ayers. Return to the emergency department if any new concerning symptoms. Prescriptions: Naproxen [Naprosyn] 500 mg PO BID PRN #30 tab PRN Reason: Pain Referrals: Cecil Antoine MD [Primary Care Provider] - Follow up with primary Forms: [employer] (Czech)
[2017-01-15] MEDS ORDERED: Sodium Chloride 0.9% 1,000 ML IV STA (17:32)
[2017-01-15 17:58] VITALS: BP 121/71; PULSE 85
[2017-01-15] MEDS ORDERED: Iohexol 350 MG/100 ML VIAL ONE (18:49)
--- NOTE | 2017-01-15 19:58 | CT ---
EXAM: CT Angiography Chest With Intravenous Contrast EXAM DATE/TIME: 01/15/2017 5:31 PM CLINICAL HISTORY: 26 years old, male; Pain; Chest pain; Type not specified; Additional info: Mid sternal cp; Testicular calcif-r/o pe, mass, ln TECHNIQUE: Axial computed tomographic angiography images of the chest with intravenous contrast using pulmonary embolism protocol. All CT scans at this facility use one or more dose reduction techniques, viz.: automated exposure control; ma/kV adjustment per patient size (including targeted exams where dose is matched to indication; i.e. head); or iterative reconstruction technique. MIP reconstructed images were created and reviewed. Coronal and sagittal reformatted images were created and reviewed. CONTRAST: 100 mL of omni 350 administered intravenously. COMPARISON: DX - CHEST TWO VIEWS (PA/LAT) 2017-01-10 10:46 FINDINGS: Heart, Aorta and Pulmonary arteries: Heart size is normal. There is no pericardial effusion.There is no aneurysm or dissection. There is perfusion of the 3 arch vessels. Allowing for streak artifact and technique, there are are no pulmonary emboli. Lungs and pleural spaces: Trachea and main bronchi are patent.There is no pneumothorax. There is minimal apical pleural scarring. There is no focal consolidation. There is minimal linear scarring at the lung bases. There is minimal dependent atelectasis. Mediastinum: The esophagus is unremarkable. There are is no pathologic adenopathy. Thyroid: Thyroid is not optimally demonstrated. Bones/joints: There are no acute osseous abnormalities. There is a mild convex right thoracic curve. Soft tissues: unremarkable Upper abdomen: There are no acute abnormalities in the visualized portion of the abdomen. IMPRESSION: No aneurysm, dissection or pulmonary embolus, no focal pneumonia; mild scoliosis
--- NOTE | 2017-01-15 21:59 | CARD ---
APPROVED REPORT EKG Measurement Heart [id number] <Conclusion> Poor data quality, interpretation may be adversely affected Normal sinus rhythm Normal ECG
== END 2017-01-15 21:40 | disposition home or self-care (01) ==
LOC: ED 16:46
DX: R07.89 Other chest pain (principal); F17.210 Nicotine dependence, cigarettes, uncomplicated
CPT/HCPCS: 71275; 93005; 96374; 96375; 99284; C9113; J1885; J7040; Q9967

== ENCOUNTER 2017-01-17 10:25 | Emergency (ER) | payer OTHER ==
[2017-01-17 10:25] VITALS: BMI 20.8
[2017-01-17 10:54] VITALS: TEMP 98.2
--- NOTE | 2017-01-17 11:10 | ED PDOC ---
Arrival/HPI - General Chief Complaint: Chest Pain Time Seen by Provider: 01/17/17 10:49 Historian: Patient EM Caveat: Acuity of Condition - History of Present Illness Narrative History of Present Illness (Text): 01/17/17 11:05 Pt is a 26 yo male, with no significant past medical history except for appendectomy, presents with c/o L sided chest discomfort for the past sev days.Pain is nonpleuritic but seems to come on with certain mvmts,lasts only 3 secs at a time.No associated palpitations ,n/v etc. 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 Patient is a smoker and denies of any diabetes and hypertension. Also, patient denies of any family history of cardiac disease. Patient mentions having seen outside primary care physician 3 days ago for similar symptoms. PMD prescribed Nexium to him, but patient has had no relief. It has been noted that patient has had 3 prior visits here to the ER with Chest CT and Chest X-ray, both findings unremarkable, no active disease found. PMD: Dr. Cecil Antoine Time/Duration: < week Symptom Onset: Sudden Symptom Course: [place] Quality: Stabbing Severity Level: 3 Activities at Onset: Rest Modifying Factors (Text): 01/17/17 11:11 certain changes in position Past Medical History - Past History Past History: No Previous - Infectious Disease Hx of Infectious Diseases: None - Tetanus Immunization Tetanus Immunization: Unknown - Past Medical History Past Medical History: No Previous - Cardiac Hx Cardiac Disorders: No - Pulmonary Hx Respiratory Disorders: No - Neurological Hx Neurological Disorder: No - HEENT Hx HEENT Disorder: No - Renal Hx Renal Disorder: No - Endocrine/Metabolic Hx Endocrine Disorders: No - Hematological/Oncological Hx Blood Transfusions: No Hx Blood Transfusion Reaction: No - Integumentary Hx Dermatological Disorder: No - Musculoskeletal/Rheumatological Hx Musculoskeletal Disorders: No Hx Falls: No - Gastrointestinal Hx Gastroesophageal Reflux: Yes - Genitourinary/Gynecological Hx Genitourinary Disorders: No - Psychiatric Hx Depression: Yes Hx Substance Use: No - Past Surgical History Past Surgical History: No Previous - Surgical History Hx Appendectomy: Yes - Anesthesia Hx Anesthesia Reactions: No Hx Malignant Hyperthermia: No - Suicidal Assessment Feels Threatened In Home Enviroment: No Family/Social History Family/Social History: No Known Family HX Smoking Status: Current Some Days Smoker Hx Alcohol Use: Yes Frequency of alcohol use: Socially Amount per day: 4 Hx Substance Use: No Hx Substance Use Treatment: No Allergies/Home Meds Allergies/Adverse Reactions: Allergies No Known Allergies Allergy (Verified 01/17/17 10:38) Home Medications: Home Meds Medication Instructions Recorded Confirmed Esomeprazole Magnesium [Nexium] 40 mg PO DAILY 01/17/17 01/17/17 Physical Exam Vital Signs Reviewed: Yes Vital Signs Temp Pulse Resp BP Pulse Ox 01/17/17 12:38 85 18 108/71 99 01/17/17 10:52 98.2 F 80 16 105/67 100 01/17/17 10:35 98.1 F 94 H 16 112/78 99 Temperature: Afebrile Blood Pressure: Normal Pulse: Regular Respiratory Rate: Normal Appearance: Positive for: Well-Appearing, Other (thin body) Pain Distress: None Mental Status: Positive for: Alert and Oriented X 3 - Systems Exam Respiratory/Chest: Present: Clear to Auscultation, Good Air Exchange, Respiratory Distress, Tender to Palpation (left parasternal chest wall tender to palpation reproduces chest pain; also producing from twist of trunk towards the left) Cardiovascular: Present: Regular Rate and Rhythm, Murmurs, Normal S1, S2 Abdomen: No: Tenderness, Rebound, Guarding Back: No: CVA Tenderness Lower Extremity: Present: NORMAL PULSES (2+). No: Edema, CALF TENDERNESS, Cyanosis Neurological: Present: GCS=15, CN II-XII Intact, Speech Normal, Motor Func Grossly Intact, Normal Sensory Function, Normal Cerebellar Funct, Normal 2Pt Descrimination Psychiatric: Present: Alert, Oriented x 3, Normal Insight, Normal Concentration Medical Decision Making ED Course and Treatment: 01/17/17 11:15 Impression: 26 year old male with left-sided chest pain. Differential Diagnosis included but are not limited to: Plan: -- EKG -- Chest X-ray -- Labs -- Naproxen -- Reassess and disposition Prior Visits: Notes and results from previous visits were reviewed. Patient was last seen in the emergency department on 01/15/2017 for midsternal chest pain. Patient was discharged and prescribed with Naproxen. Progress Notes: - Lab Interpretations Lab Results: 01/17/17 11:26 01/17/17 11:26 Lab Results 01/17/17 11:26: D-Dimer, Quantitative < 200 01/17/17 11:26: Sodium 143, Potassium 4.3, Chloride 104, Carbon Dioxide 29, Anion Gap 14, BUN 25 H, Creatinine 1.0, Est GFR ( Amer) > 60, Est GFR ( Non-Af Amer) > 60, Random Glucose 88, Calcium 9.5, Magnesium 2.1, Total Bilirubin 0.4, AST 20, ALT 34, Alkaline Phosphatase 80, Lactate Dehydrogenase 302 L, Total Creatine Kinase 49, Troponin I < 0.01, Total Protein 6.8, Albumin 4.6, Globulin 2.2, Albumin/Globulin Ratio 2.1 H 01/17/17 11:26: WBC 4.5, RBC 5.49, Hgb 15.0, Hct 44.1, MCV 80.3, MCH 27.3, MCHC 34.0, RDW 12.7, Plt Count 166, MPV 10.4, Gran % 57.4, Lymph % (Auto) 33.0, [place] % (Auto) 7.8 H, Eos % (Auto) 1.6, Baso % (Auto) 0.2, Gran # 2.57, Lymph # 1.5, [place] # 0.4, Eos # 0.1, Baso # 0.01 - RAD Interpretation Radiology Orders: 01/17/17 11:08 CHEST PORTABLE [RAD] Stat - Medication Orders Current Medication Orders: Discontinued Medications Naproxen (Anaprox Ds) 550 mg PO BID CIARA Last Admin: 01/17/17 11:29 Dose: 550 mg - Scribe Statement The provider has reviewed the documentation as recorded by the Erin Galindo Provider Scribe Attestation: All medical record entries made by the Erin were at my direction and personally dictated by me. I have reviewed the chart and agree that the record accurately reflects my personal performance of the history, physical exam, medical decision making, and the department course for this patient. I have also personally directed, reviewed, and agree with the discharge instructions and disposition. Disposition/Present on Arrival - Present on Arrival Any Indicators Present on Arrival: No History of DVT/PE: No History of Uncontrolled Diabetes: No Urinary Catheter: No History of Decub. Ulcer: No History Surgical Site Infection Following: None - Disposition Have Diagnosis and Disposition been Completed?: Yes Diagnosis: Chest wall pain, Costochondritis Disposition: HOME/ ROUTINE Disposition Time: 19:49 Patient Problems: Current Active Problems Problem Status Onset Chest wall pain Acute Costochondritis Acute Condition: GOOD Discharge Instructions (ExitCare): Chest Pain (ED) Print Language: MACEDONIAN Additional Instructions: Take Naprosyn as prescribed Referrals: Cecil Antoine MD [Family Provider] - Follow up with primary Forms: [employer] (Hong Konger)
[2017-01-17] MEDS ORDERED: Naproxen 550 mg Tab PO SCH (11:15)
[2017-01-17 11:30] LABS: BASO # 0.01 K/mm3 (0.0-2.0); BASO % 0.2 % (0.0-3.0); EOS # 0.1 (0.0-0.7); EOS % 1.6 % (1.5-5.0); GRAN # 2.57 (1.4-6.5); GRAN % 57.4 % (50.0-68.0); HEMATOCRIT 44.1 % (42.0-52.0); LYMPH # 1.5 (1.2-3.4); MEAN CELL VOLUME 80.3 fl (80.0-105.0); MEAN CORPUSCULAR HEMOGLOBIN 27.3 pg (25.0-35.0); MEAN PLATELET VOLUME 10.4 fl (7.0-11.0); MONO # 0.4 (0.1-0.6); MONO % 7.8 % (1.0-6.0); RED CELL DISTRIBUTION WIDTH 12.7 % (11.5-14.5); WHITE BLOOD COUNT 4.5 10^3/ul (4.5-11.0)
[2017-01-17 11:46] LABS: ALB/GLOB RATIO 2.1 (1.1-1.8); ALKALINE PHOSPHATASE 80 U/L (38-126); ALT/SGPT 34 U/L (7-56); AST/SGOT 20 U/L (17-59); BILIRUBIN,TOTAL 0.4 mg/dL (0.2-1.3); BLOOD UREA NITROGEN 25 mg/dL (7-21); CALCIUM 9.5 mg/dL (8.4-10.5); CARBON DIOXIDE 29 mmol/L (21-33); CHLORIDE 104 mmol/L (98-107); GFR AFRICAN-AMERICAN > 60; GLUCOSE,RANDOM 88 mg/dL (70-110); MAGNESIUM 2.1 mg/dL (1.7-2.2); POTASSIUM 4.3 mmol/L (3.6-5.0); SODIUM 143 mmol/L (132-148); TOTAL PROTEIN 6.8 g/dL (5.8-8.3)
[2017-01-17 12:05] LABS: TROPONIN I < 0.01 ng/mL
[2017-01-17 12:39] VITALS: BP 108/71; PULSE 85; RESP 18; O2SAT 99
--- NOTE | 2017-01-17 14:19 | RAD ---
HISTORY: chest pain COMPARISON: 01/10/2017 FINDINGS: LUNGS: No active pulmonary disease. PLEURA: No significant pleural effusion identified, no pneumothorax apparent. CARDIOVASCULAR: Normal. OSSEOUS STRUCTURES: No significant abnormalities. VISUALIZED UPPER ABDOMEN: Normal. OTHER FINDINGS: None. IMPRESSION: No active disease.
--- NOTE | 2017-01-17 20:45 | CARD ---
APPROVED REPORT EKG Measurement Heart [id number] <Conclusion> Normal sinus rhythm Normal ECG
== END 2017-01-17 12:48 | disposition home or self-care (01) ==
LOC: ED 10:25
DX: M94.0 Chondrocostal junction syndrome [Tietze] (principal)

== ENCOUNTER 2017-01-19 13:22 | Emergency (ER) | payer OTHER ==
[2017-01-19 13:43] VITALS: TEMP 98.3; BMI 20.9
--- NOTE | 2017-01-19 14:09 | ED PDOC ---
Arrival/HPI - General Chief Complaint: Chest Pain Time Seen by Provider: 01/19/17 13:26 Historian: Patient - History of Present Illness Narrative History of Present Illness (Text): 01/19/17 14:05 Patient is a 26 yo male, presents to ED stating that he has had 2 week history of intermittent substernal chest discomfort. He states that pain is sharp and stabbing, nonradiating. No association with meals or movements. No shortness of breath. No pleuritic pain. No abdominal pain. No nausea or vomiting. No hematemesis. No rash. Patient states pain occurred first several weeks ago when he woke up and noticed mid chest pain. States pain is daily, and "comes and goes ". Patient states he was recently admitted to hospital "two days ago" at [facility]] where "I had a stress test and echo and they told me it was fine". Denies leg pain or swelling. States pain has been persistent but not changed in character or location. No associated numbness or weakness. Past Medical History - Past History Past History: No Previous - Infectious Disease Hx of Infectious Diseases: None - Tetanus Immunization Tetanus Immunization: Unknown - Past Medical History Past Medical History: No Previous - Cardiac Hx Cardiac Disorders: No - Pulmonary Hx Respiratory Disorders: No - Neurological Hx Neurological Disorder: No - HEENT Hx HEENT Disorder: No - Renal Hx Renal Disorder: No - Endocrine/Metabolic Hx Endocrine Disorders: No - Hematological/Oncological Hx Blood Transfusions: No Hx Blood Transfusion Reaction: No - Integumentary Hx Dermatological Disorder: No - Musculoskeletal/Rheumatological Hx Musculoskeletal Disorders: No Hx Falls: No - Gastrointestinal Hx Gastroesophageal Reflux: Yes - Genitourinary/Gynecological Hx Genitourinary Disorders: No - Psychiatric Hx Depression: Yes Hx Substance Use: No - Past Surgical History Past Surgical History: No Previous - Surgical History Hx Appendectomy: Yes - Anesthesia Hx Anesthesia Reactions: No Hx Malignant Hyperthermia: No - Suicidal Assessment Feels Threatened In Home Enviroment: No Family/Social History Family/Social History: denies: CAD/[place] Smoking Status: Current Some Days Smoker Hx Alcohol Use: Yes Amount per day: 4 Hx Substance Use: No Hx Substance Use Treatment: No Allergies/Home Meds Allergies/Adverse Reactions: Allergies No Known Allergies Allergy (Verified 01/17/17 10:38) Review of Systems - Review of Systems Constitutional: Fatigue. absent: Fevers Eyes: absent: Vision Changes ENT: absent: Hearing Changes Respiratory: absent: SOB, Cough, Sputum, Wheezing Cardiovascular: Chest Pain, Palpitations. absent: Edema, Calf Pain, DIETRICH, Orthopnea, Syncope Gastrointestinal: absent: Abdominal Pain, Diarrhea, Nausea, Vomiting, Appetite Changes, Hematochezia, Hematemesis Genitourinary Male: absent: Dysuria, Frequency Musculoskeletal: Back Pain Skin: absent: Rash Neurological: absent: Headache, Dizziness, Focal Weakness Hemo/Lymphatic: absent: Easy Bleeding Psychiatric: absent: Depression Physical Exam Vital Signs Reviewed: Yes Vital Signs Temp Pulse Resp BP Pulse Ox 01/19/17 15:25 76 18 122/78 98 01/19/17 13:28 98.3 F 85 16 119/73 99 Temperature: Afebrile Appearance: Positive for: Well-Appearing, Non-Toxic Mental Status: Positive for: Alert and Oriented X 3 - Systems Exam Head: Present: Atraumatic, Normocephalic Pupils: Present: PERRL Extroacular Muscles: Present: EOMI Mouth: Present: Moist Mucous Membranes Pharnyx: No: ERYTHEMA Nose (Internal): Present: Normal Inspection Neck: Present: Normal Range of Motion. No: Meningeal Signs Respiratory/Chest: Present: Clear to Auscultation. No: Respiratory Distress, Rales Cardiovascular: Present: Regular Rate and Rhythm Abdomen: No: Tenderness, Distention Breast/Axillary: No: Erythema Back: No: CVA Tenderness, Midline Tenderness Upper Extremity: Present: Normal ROM, NORMAL PULSES. No: Edema Lower Extremity: Present: NORMAL PULSES. No: Edema, CALF TENDERNESS Neurological: Present: Motor Func Grossly Intact, Normal Sensory Function Skin: Present: Warm Psychiatric: Present: Alert, Normal Insight, Normal Concentration Medical Decision Making ED Course and Treatment: 01/19/17 14:12 Patient's past visits reviewed from [place], including CT chest and chest xray, labs. CT chest performed earlier this month unremarkable. On exam, equal BP and pulse in both upper extremities. Patient also states [place] [facility] and stress test. He denies symptoms with exertion or activity. No dyspnea. As symptoms not associated with exertion, and recent unremarkable ct angio and cardiac eval, I feel current presentation unlikely secondary to acute cardiac etiology. Currently pain free on re-evaluation. Symptoms worse in am, ? reflux/gerd, although no association with meals. Limiations of imaging studies reviewed with patient, although given lack of symptoms on re-evaluation, no fever, no weight loss or night sweats, no dyspnea , will discharge with instructions to follow-up with Dr. 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 - Lab Interpretations Lab Results: 01/19/17 14:20 01/19/17 14:20 Lab Results 01/19/17 14:30: Urine Color Yellow, Urine Appearance Clear, Urine pH 7.0, Ur Specific [place] 1.010, Urine Protein Negative, Urine Glucose (UA) Negative, Urine Ketones Negative, Urine Blood Negative, Urine Nitrate Negative, Urine Bilirubin Negative, Urine Urobilinogen 0.2, Ur Leukocyte Esterase Negative 01/19/17 14:20: Sodium 143, Potassium 4.3, Chloride 104, Carbon Dioxide 29, Anion Gap 14, BUN 19, Creatinine 1.0, Est GFR ( Amer) > 60, Est GFR (Non- Af Amer) > 60, Random Glucose 89, Calcium 9.5, Total Bilirubin 0.7, AST 19, ALT 35, Alkaline Phosphatase 78, Lactate Dehydrogenase 312 L, Total Creatine Kinase 49, Troponin I < 0.01, Total Protein 6.8, Albumin 4.4, Globulin 2.4, Albumin/ Globulin Ratio 1.8, Amylase 75, Lipase 102 01/19/17 14:20: WBC 3.8 L, RBC 5.56, Hgb 15.2, Hct 44.8, MCV 80.6, MCH 27.3, MCHC 33.9, RDW 12.5, Plt Count 173, MPV 10.5, Gran % 58.5, Lymph % (Auto) 31.4, [place] % (Auto) 7.7 H, Eos % (Auto) 2.1, Baso % (Auto) 0.3, Gran # 2.22, Lymph # 1.2, [place] # 0.3, Eos # 0.1, Baso # 0.01 - EKG Interpretation EKG Interpretation (Text): 01/19/17 14:13 EKG at 14:30 normal sinus rhythm rate of 95 Interpreted by ED Physician: Yes Type: 12 lead EKG - Medication Orders Current Medication Orders: Discontinued Medications Famotidine (Pepcid) 20 mg IVP STAT STA Stop: 01/19/17 14:01 Last Admin: 01/19/17 14:30 Dose: 20 mg IVP Administration Document 01/19/17 14:30 GMD (Rec: 01/19/17 14:30 GMD [id number]) Charges for Administration # of IVP Administrations 1 Disposition/Present on Arrival - Present on Arrival Any Indicators Present on Arrival: No History of DVT/PE: No History of Uncontrolled Diabetes: No Urinary Catheter: No History of Decub. Ulcer: No History Surgical Site Infection Following: None - Disposition Have Diagnosis and Disposition been Completed?: Yes Diagnosis: Chest pain Disposition: HOME/ ROUTINE Disposition Time: 15:16 Patient Plan: Discharge Condition: GOOD Discharge Instructions (ExitCare): Chest Pain (ED) Additional Instructions: For any fevers, any shortness of breath, any pain with deep breaths, any coughing, any abdominal pain, any nausea or vomiting, any coughing or spitting or vomiting blood, any numbness or weakness, any new or persistent symptoms, get rechecked. 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 Discontinue smoking, risks have been discussed. Prescriptions: Esomeprazole Magnesium [Nexium] 20 mg PO DAILY #21 ecc Referrals: Dashawn Heard MD [Medical Doctor] - Follow up with primary [facility] [Outside] - Follow up with primary [facility] [Outside] - Follow up with primary Forms: [employer] (Turkmen)
[2017-01-19 14:38] LABS: ALB/GLOB RATIO 1.8 (1.1-1.8); ALKALINE PHOSPHATASE 78 U/L (38-126); ALT/SGPT 35 U/L (7-56); AMYLASE 75 U/L (35-125); AST/SGOT 19 U/L (17-59); BILIRUBIN,TOTAL 0.7 mg/dL (0.2-1.3); BLOOD UREA NITROGEN 19 mg/dL (7-21); CALCIUM 9.5 mg/dL (8.4-10.5); CARBON DIOXIDE 29 mmol/L (21-33); CHLORIDE 104 mmol/L (98-107); GFR AFRICAN-AMERICAN > 60; GLUCOSE,RANDOM 89 mg/dL (70-110); LIPASE 102 U/L (23-300); POTASSIUM 4.3 mmol/L (3.6-5.0); SODIUM 143 mmol/L (132-148); TOTAL PROTEIN 6.8 g/dL (5.8-8.3)
[2017-01-19 14:49] LABS: BASO # 0.01 K/mm3 (0.0-2.0); BASO % 0.3 % (0.0-3.0); EOS # 0.1 (0.0-0.7); EOS % 2.1 % (1.5-5.0); GRAN # 2.22 (1.4-6.5); GRAN % 58.5 % (50.0-68.0); HEMATOCRIT 44.8 % (42.0-52.0); LYMPH # 1.2 (1.2-3.4); LYMPH % 31.4 % (22.0-35.0); MEAN CELL VOLUME 80.6 fl (80.0-105.0); MEAN CORPUSCULAR HEMOGLOBIN 27.3 pg (25.0-35.0); MEAN CORPUSCULAR HGB CONC 33.9 g/dl (31.0-37.0); MEAN PLATELET VOLUME 10.5 fl (7.0-11.0); MONO # 0.3 (0.1-0.6); MONO % 7.7 % (1.0-6.0); RED CELL DISTRIBUTION WIDTH 12.5 % (11.5-14.5); WHITE BLOOD COUNT 3.8 10^3/ul (4.5-11.0)
[2017-01-19 14:52] LABS: TROPONIN I < 0.01 ng/mL
[2017-01-19 15:16] LABS: URINE BILIRUBIN NEGATIVE (NEGATIVE); URINE BLOOD NEGATIVE (NEGATIVE); URINE GLUCOSE (UA) NEGATIVE (NEGATIVE); URINE KETONE NEGATIVE (NEGATIVE); URINE LEUKOCYTE ESTERASE NEGATIVE Leu/uL (NEGATIVE); URINE PROTEIN NEGATIVE mg/dL (<30 mg/dL); URINE UROBILINOGEN 0.2 E.U./dL (<1 E.U./dL)
[2017-01-19 15:20] LABS: URINE APPEARANCE CLEAR (CLEAR); URINE COLOR YELLOW (YELLOW)
[2017-01-19 15:26] VITALS: BP 122/78; PULSE 76; RESP 18; O2SAT 98
--- NOTE | 2017-01-19 22:14 | CARD ---
APPROVED REPORT EKG Measurement Heart [id number] GA 130P77 [id number] <Conclusion> Normal sinus rhythm Rightward axis Borderline ECG
== END 2017-01-19 15:26 | disposition home or self-care (01) ==
LOC: ED 13:22
DX: R07.9 Chest pain, unspecified (principal)

== ENCOUNTER 2017-01-20 16:53 | Observation (INO) | payer MEDICAID, OTHER ==
[2017-01-20 16:54] VITALS: BMI 20.9
[2017-01-20] MEDS ORDERED: Ipratropium 0.02% Inhal Soln (0.5 mg/2.5 ml) UD IH STA (17:22)
[2017-01-20 20:07] LABS: BASO # 0.01 K/mm3 (0.0-2.0); BASO % 0.2 % (0.0-3.0); EOS # 0.1 (0.0-0.7); EOS % 1.6 % (1.5-5.0); GRAN # 2.97 (1.4-6.5); GRAN % 58.4 % (50.0-68.0); HEMATOCRIT 46.3 % (42.0-52.0); LYMPH # 1.7 (1.2-3.4); LYMPH % 32.9 % (22.0-35.0); MEAN CELL VOLUME 79.8 fl (80.0-105.0); MEAN CORPUSCULAR HEMOGLOBIN 27.6 pg (25.0-35.0); MEAN CORPUSCULAR HGB CONC 34.6 g/dl (31.0-37.0); MEAN PLATELET VOLUME 10.8 fl (7.0-11.0); MONO # 0.4 (0.1-0.6); MONO % 6.9 % (1.0-6.0); RED CELL DISTRIBUTION WIDTH 12.4 % (11.5-14.5); URINE BILIRUBIN NEGATIVE (NEGATIVE); URINE BLOOD NEGATIVE (NEGATIVE); URINE GLUCOSE (UA) NEGATIVE (NEGATIVE); URINE KETONE NEGATIVE (NEGATIVE); URINE LEUKOCYTE ESTERASE NEGATIVE Leu/uL (NEGATIVE); URINE PROTEIN NEGATIVE mg/dL (<30 mg/dL); URINE UROBILINOGEN 0.2 E.U./dL (<1 E.U./dL); WHITE BLOOD COUNT 5.1 10^3/ul (4.5-11.0)
[2017-01-20 20:08] LABS: URINE APPEARANCE CLEAR (CLEAR); URINE COLOR YELLOW (YELLOW)
[2017-01-20 20:20] LABS: ALKALINE PHOSPHATASE 80 U/L (38-126); ALT/SGPT 26 U/L (7-56); AST/SGOT 25 U/L (17-59); BILIRUBIN,TOTAL 0.5 mg/dL (0.2-1.3); BLOOD UREA NITROGEN 18 mg/dL (7-21); CALCIUM 9.6 mg/dL (8.4-10.5); CARBON DIOXIDE 31 mmol/L (21-33); CHLORIDE 102 mmol/L (98-107); GFR AFRICAN-AMERICAN > 60; GLUCOSE,RANDOM 85 mg/dL (70-110); MAGNESIUM 2.2 mg/dL (1.7-2.2); POTASSIUM 4.4 mmol/L (3.6-5.0); SODIUM 142 mmol/L (132-148); TOTAL PROTEIN 7.2 g/dL (5.8-8.3)
[2017-01-20 20:24] LABS: INR 1.13 (0.93-1.08); PARTIAL THROMBOPLASTIN TIME 30.4 Seconds (25.1-36.5)
[2017-01-20 20:37] LABS: TROPONIN I < 0.01 ng/mL
--- NOTE | 2017-01-20 20:59 | ED PDOC ---
Arrival/HPI - General Chief Complaint: Chest Pain Time Seen by Provider: 01/20/17 17:01 Historian: Patient - History of Present Illness Narrative History of Present Illness (Text): 01/20/17 17:06 21 year old male with significant history for cigarette smoking (3 cigarettes per day) had 4 prior visits for the past week that showed Troponin negative, CT Angio Chest Negative x 2. Patient now presents complaining of continuous chest pain associated with dizziness. Patient describes the pain as a band like chest pain across both chest for the last 5-10 minutes superimposed was a sharp lower sternal border chest pain. Chest pain is externally exacerbated particularly after running, climbing stairs, and sex. Patient denies any dyspnea on exacerbation, orthopnea, but endorses family history of two paternal granduncles who in their late 20's early 30's on sudden cardiac . Chest pain has been recalcitrant to daily Nexium and occasional Motrin. Patient presents states that he lost w week of work and believes he needs an endoscopy. Patient denies any fever, chills, nausea, vomiting, diarrhea, urinary symptoms, back pain, neck pain, headache, or any other complaints. Dr. Antoine Symptom Onset: Gradual Symptom Course: Unchanged Activities at Onset: Light Context: Home Past Medical History - Provider Review Nursing Documentation Reviewed: Yes - Past History Past History: No Previous - Infectious Disease Hx of Infectious Diseases: None - Tetanus Immunization Tetanus Immunization: Unknown - Past Medical History Past Medical History: No Previous - Cardiac Hx Cardiac Disorders: No - Pulmonary Hx Respiratory Disorders: No - Neurological Hx Neurological Disorder: No - HEENT Hx HEENT Disorder: No - Renal Hx Renal Disorder: No - Endocrine/Metabolic Hx Endocrine Disorders: No - Hematological/Oncological Hx Blood Transfusions: No Hx Blood Transfusion Reaction: No - Integumentary Hx Dermatological Disorder: No - Musculoskeletal/Rheumatological Hx Musculoskeletal Disorders: No Hx Falls: No - Gastrointestinal Hx Gastroesophageal Reflux: Yes - Genitourinary/Gynecological Hx Genitourinary Disorders: No - Psychiatric Hx Depression: Yes Hx Substance Use: No - Past Surgical History Past Surgical History: No Previous - Surgical History Hx Appendectomy: Yes - Anesthesia Hx Anesthesia: Yes Hx Anesthesia Reactions: No Hx Malignant Hyperthermia: No - Suicidal Assessment Feels Threatened In Home Enviroment: No Family/Social History - Physician Review Nursing Documentation Reviewed: Yes Family/Social History: No Known Family HX Smoking Status: Current Some Days Smoker Hx Alcohol Use: Yes Amount per day: 4 Hx Substance Use: No Hx Substance Use Treatment: No Allergies/Home Meds Allergies/Adverse Reactions: Allergies No Known Allergies Allergy (Verified 01/20/17 17:02) Review of Systems - Physician Review All systems were reviewed & negative as marked: Yes - Review of Systems Constitutional: absent: Fevers, Other (chills) Cardiovascular: Chest Pain Gastrointestinal: absent: Diarrhea, Nausea, Vomiting Genitourinary Male: absent: Dysuria, Frequency, Hematuria Musculoskeletal: absent: Back Pain, Neck Pain Neurological: Dizziness. absent: Headache Physical Exam Vital Signs Temp Pulse Resp BP Pulse Ox 01/20/17 17:01 98.6 F 100 H 18 125/90 100 Temperature: Afebrile Blood Pressure: Normal Pulse: Tachycardic Respiratory Rate: Normal Appearance: Positive for: Well-Appearing, Non-Toxic, Comfortable Pain Distress: None Mental Status: Positive for: Alert and Oriented X 3 - Systems Exam Head: Present: Atraumatic, Normocephalic Pupils: Present: PERRL Extroacular Muscles: Present: EOMI Conjunctiva: Present: Normal Mouth: Present: Moist Mucous Membranes Neck: Present: Normal Range of Motion Respiratory/Chest: Present: Clear to Auscultation, Good Air Exchange, Other ( Chest pain nonreproducable with should girdle movement. No direct palpation). No: Respiratory Distress, Accessory Muscle Use Cardiovascular: Present: Regular Rate and Rhythm, Normal S1, S2. No: Murmurs Abdomen: Present: Normal Bowel Sounds. No: Tenderness, Distention, Peritoneal Signs Back: Present: Normal Inspection Upper Extremity: Present: Normal Inspection. No: Cyanosis, Edema Lower Extremity: Present: Normal Inspection. No: Edema Neurological: Present: GCS=15, CN II-XII Intact, Speech Normal Skin: Present: Warm, Dry, Normal Color. No: Rashes Psychiatric: Present: Alert, Oriented x 3, Normal Insight, Normal Concentration Medical Decision Making ED Course and Treatment: 01/20/17 17:06 Impression: 26 year old male presents complaining of continuous chest pain associated with dizziness. Patient had multiple visits to the emergency department for continuous chest pain. Plan: -- EKG -- Labs -- Chest Two Views X-ray -- Aspirin -- Pepcid -- Motrin Tab -- Atrovent -- O2 via Nasal Cannula -- Urinalysis -- Reassess and disposition Prior Visits: Notes and results from previous visits were reviewed. On 01/19/17 patient came in complaining of intermittent substernal discomfort. Patient was discharged. Progress Notes: EKG shows Sinus Tachycardic at 101 BPM with no arrythmogenic intervals. No ST/T segment changes. RSR prime pattern in V1 and V2. Interpreted by me. Patient given multiple repeated visits for chest pain which patient externally exacerbated. Patient exhausted emergency department edevaluated. Patient admitted to further cardio risk. Stratification further more profound. Possible GI work up. - Lab Interpretations Lab Results: 01/20/17 19:50 01/20/17 19:50 Lab Results 01/20/17 19:50: Urine Opiates Screen Negative, Urine Methadone Screen Negative, Ur Barbiturates Screen Negative, Ur Phencyclidine Scrn Negative, Ur Amphetamines Screen Negative, U Benzodiazepines Scrn Negative, U Oth Cocaine Metabols Negative, U Cannabinoids Screen Negative 01/20/17 19:50: PT 12.4, INR 1.13 H, APTT 30.4 01/20/17 19:50: Sodium 142, Potassium 4.4, Chloride 102, Carbon Dioxide 31, Anion Gap 13, BUN 18, Creatinine 1.1, Est GFR ( Amer) > 60, Est GFR (Non- Af Amer) > 60, Random Glucose 85, Calcium 9.6, Magnesium 2.2, Total Bilirubin 0.5, AST 25, ALT 26, Alkaline Phosphatase 80, Lactate Dehydrogenase 357, Total Creatine Kinase 58, Troponin I < 0.01, Total Protein 7.2, Albumin 4.9 H, Globulin 2.4, Albumin/Globulin Ratio 2.0 H 01/20/17 19:50: Urine Color Yellow, Urine Appearance Clear, Urine pH 7.0, Ur Specific [place] 1.010, Urine Protein Negative, Urine Glucose (UA) Negative, Urine Ketones Negative, Urine Blood Negative, Urine Nitrate Negative, Urine Bilirubin Negative, Urine Urobilinogen 0.2, Ur Leukocyte Esterase Negative 01/20/17 19:50: WBC 5.1 D, RBC 5.80, Hgb 16.0, Hct 46.3, MCV 79.8 L, MCH 27.6, MCHC 34.6, RDW 12.4, Plt Count 215, MPV 10.8, Gran % 58.4, Lymph % (Auto) 32.9, [place] % (Auto) 6.9 H, Eos % (Auto) 1.6, Baso % (Auto) 0.2, Gran # 2.97, Lymph # 1.7, [place] # 0.4, Eos # 0.1, Baso # 0.01 - RAD Interpretation Radiology Orders: 01/20/17 17:23 CHEST TWO VIEWS (PA/LAT) [RAD] Stat - Medication Orders Current Medication Orders: Discontinued Medications Aspirin (Aspirin) 325 mg PO STAT STA Stop: 01/20/17 19:12 Famotidine (Pepcid) 40 mg PO STAT STA Stop: 01/20/17 17:22 Last Admin: 01/20/17 17:46 Dose: 40 mg Ibuprofen (Motrin Tab) 800 mg PO STAT STA Stop: 01/20/17 17:22 Last Admin: 01/20/17 17:46 Dose: 800 mg Ipratropium [place] (Atrovent) 0.5 mg IH STAT STA Stop: 01/20/17 17:23 Last Admin: 01/20/17 17:35 Dose: 0.5 mg - Scribe Statement The provider has reviewed the documentation as recorded by the Scribe Josi Romero All medical record entries made by the Silvanaibbello were at my direction and personally dictated by me. I have reviewed the chart and agree that the record accurately reflects my personal performance of the history, physical exam, medical decision making, and the department course for this patient. I have also personally directed, reviewed, and agree with the discharge instructions and disposition. Disposition/Present on Arrival - Present on Arrival History of DVT/PE: No History of Uncontrolled Diabetes: No Urinary Catheter: No History of Decub. Ulcer: No History Surgical Site Infection Following: None - Disposition Referrals: Cecil Antoine MD [Primary Care Provider] - Follow up with primary
[2017-01-20] MEDS ORDERED: Pantoprazole 40 mg EC Tab PO STA (23:03)
--- NOTE | 2017-01-20 23:17 | CP.PCM.PN ---
Subjective - Date & Time of Evaluation Date of Evaluation: 01/20/17 Time of Evaluation: 23:16 - Subjective Subjective: Patient was seen at bedside. Complains of burning sensation in epigastric area.Had sob earlier which has subsided. Has no other complaints at this time. Received Pepcid in the ER which seems to have worked earlier. This 26 year old male was admitted with chest pain associated with dizziness. Has PMH of GERD, depression, appendectomy. Objective - Vital Signs/Intake and Output Vital Signs (last 24 hours): Temp Pulse Resp BP Pulse Ox 98.6 F 93 H 18 119/71 99 01/20/17 17:01 01/20/17 21:43 01/20/17 22:41 01/20/17 21:43 01/20/17 21:43 - Labs Labs: PT 12.4 SECONDS (9.4-12.5) 01/20/17 19:50 INR 1.13 (0.93-1.08) H 01/20/17 19:50 APTT 30.4 Seconds (25.1-36.5) 01/20/17 19:50 Laboratory Last Values WBC 5.1 10^3/ul (4.5-11.0) D 01/20/17 19:50 RBC 5.80 10^6/uL (3.5-6.1) 01/20/17 19:50 Hgb 16.0 g/dL (14.0-18.0) 01/20/17 19:50 Hct 46.3 % (42.0-52.0) 01/20/17 19:50 MCV 79.8 fl (80.0-105.0) L 01/20/17 19:50 MCH 27.6 pg (25.0-35.0) 01/20/17 19:50 MCHC 34.6 g/dl (31.0-37.0) 01/20/17 19:50 RDW 12.4 % (11.5-14.5) 01/20/17 19:50 Plt Count 215 10^3/uL (120.0-450.0) 01/20/17 19:50 MPV 10.8 fl (7.0-11.0) 01/20/17 19:50 Gran % 58.4 % (50.0-68.0) 01/20/17 19:50 Lymph % (Auto) 32.9 % (22.0-35.0) 01/20/17 19:50 [place] % (Auto) 6.9 % (1.0-6.0) H 01/20/17 19:50 Eos % (Auto) 1.6 % (1.5-5.0) 01/20/17 19:50 Baso % (Auto) 0.2 % (0.0-3.0) 01/20/17 19:50 Gran # 2.97 (1.4-6.5) 01/20/17 19:50 Lymph # 1.7 (1.2-3.4) 01/20/17 19:50 [place] # 0.4 (0.1-0.6) 01/20/17 19:50 Eos # 0.1 (0.0-0.7) 01/20/17 19:50 Baso # 0.01 K/mm3 (0.0-2.0) 01/20/17 19:50 PT 12.4 SECONDS (9.4-12.5) 01/20/17 19:50 INR 1.13 (0.93-1.08) H 01/20/17 19:50 APTT 30.4 Seconds (25.1-36.5) 01/20/17 19:50 Sodium 142 mmol/L (132-148) 01/20/17 19:50 Potassium 4.4 mmol/L (3.6-5.0) 01/20/17 19:50 Chloride 102 mmol/L (98-107) 01/20/17 19:50 Carbon Dioxide 31 mmol/L (21-33) 01/20/17 19:50 Anion Gap 13 (10-20) 01/20/17 19:50 BUN 18 mg/dL (7-21) 01/20/17 19:50 Creatinine 1.1 mg/dL (0.8-1.5) 01/20/17 19:50 Est GFR ( Amer) > 60 01/20/17 19:50 Est GFR (Non-Af Amer) > 60 01/20/17 19:50 Random Glucose 85 mg/dL (70-110) 01/20/17 19:50 Calcium 9.6 mg/dL (8.4-10.5) 01/20/17 19:50 Magnesium 2.2 mg/dL (1.7-2.2) 01/20/17 19:50 Total Bilirubin 0.5 mg/dL (0.2-1.3) 01/20/17 19:50 AST 25 U/L (17-59) 01/20/17 19:50 ALT 26 U/L (7-56) 01/20/17 19:50 Alkaline Phosphatase 80 U/L (38-126) 01/20/17 19:50 Lactate Dehydrogenase 357 U/L (333-699) 01/20/17 19:50 Total Creatine Kinase 58 U/L (35-230) 01/20/17 19:50 Troponin I < 0.01 ng/mL 01/20/17 19:50 Total Protein 7.2 g/dL (5.8-8.3) 01/20/17 19:50 Albumin 4.9 g/dL (3.0-4.8) H 01/20/17 19:50 Globulin 2.4 gm/dL 01/20/17 19:50 Albumin/Globulin Ratio 2.0 (1.1-1.8) H 01/20/17 19:50 Urine Color Yellow (YELLOW) 01/20/17 19:50 Urine Appearance Clear (CLEAR) 01/20/17 19:50 Urine pH 7.0 (4.7-8.0) 01/20/17 19:50 Ur Specific [place] 1.010 (1.005-1.035) 01/20/17 19:50 Urine Protein Negative mg/dL (<30 mg/dL) 01/20/17 19:50 Urine Glucose (UA) Negative mg/dL (NEGATIVE) 01/20/17 19:50 Urine Ketones Negative mg/dL (NEGATIVE) 01/20/17 19:50 Urine Blood Negative (NEGATIVE) 01/20/17 19:50 Urine Nitrate Negative (NEGATIVE) 01/20/17 19:50 Urine Bilirubin Negative (NEGATIVE) 01/20/17 19:50 Urine Urobilinogen 0.2 E.U./dL (<1 E.U./dL) 01/20/17 19:50 Ur Leukocyte Esterase Negative David/uL (NEGATIVE) 01/20/17 19:50 Urine Opiates Screen Negative (NEGATIVE) 01/20/17 19:50 Urine Methadone Screen Negative (NEGATIVE) 01/20/17 19:50 Ur Barbiturates Screen Negative (NEGATIVE) 01/20/17 19:50 Ur Phencyclidine Scrn Negative (NEGATIVE) 01/20/17 19:50 Ur Amphetamines Screen Negative (NEGATIVE) 01/20/17 19:50 U Benzodiazepines Scrn Negative (NEGATIVE) 01/20/17 19:50 U Oth Cocaine Metabols Negative (NEGATIVE) 01/20/17 19:50 U Cannabinoids Screen Negative (NEGATIVE) 01/20/17 19:50 - Constitutional Appears: Well, No Acute Distress - Head Exam Head Exam: ATRAUMATIC, NORMAL INSPECTION, NORMOCEPHALIC - Eye Exam Eye Exam: Normal appearance - ENT Exam ENT Exam: Normal External Ear Exam - Neck Exam Neck Exam: Normal Inspection - Respiratory Exam Respiratory Exam: NORMAL BREATHING PATTERN - GI/Abdominal Exam GI & Abdominal Exam: Soft, Normal Bowel Sounds. absent: Distended, Tenderness - Rectal Exam Rectal Exam: Deferred - Exam Additional comments: Deferred. - Extremities Exam Extremities Exam: Normal Inspection - Back Exam Back Exam: NORMAL INSPECTION - Neurological Exam Neurological Exam: Alert, Oriented x3 - Psychiatric Exam Psychiatric exam: Normal Affect, Normal Mood - Skin Skin Exam: Normal Color Assessment and Plan - Assessment and Plan (Free Text) Assessment: Epigastric pain. Ex Smoker. GERD. Depression. Plan: Protonix 40 mg PO stat. Continue present management as per PMD.
--- NOTE | 2017-01-21 09:06 | RAD ---
HISTORY: COMPARISON: 01/17/2017. TECHNIQUE: Chest PA and lateral FINDINGS: LINES AND TUBES: None. LUNG AND PLEURA: The lungs are well inflated and clear. HEART AND MEDIASTINUM: The heart is not enlarged. The hilar and mediastinal contours are within normal limits. SKELETAL STRUCTURES: The bony structures are within normal limits for the patient's age. VISUALIZED UPPER ABDOMEN: Normal. OTHER FINDINGS: None. IMPRESSION: No active pulmonary disease.
--- NOTE | 2017-01-21 10:25 | CARD ---
APPROVED REPORT EKG Measurement Heart [id number] <Conclusion> Sinus tachycardia Possible Left atrial enlargement RSR' or QR pattern in V1 suggests right ventricular conduction delay Borderline ECG
--- NOTE | 2017-01-21 12:15 | CP.PCM.CON ---
<Marian Richmond - Last Filed: 01/21/17 12:13> History of Present Illness - History of Present Illness History of Present Illness: Seen and examined at the bedside earlier this morning, the chart was reviewed. Request for GI consult is for epigastric pain. HPI: This is a 26-year-old male with a history of GERD, denies any other previous pertinent medical history has been to the emergency room on numerous occasions disease past few weeks with complaints of chest pain, he complains of chest pain on exertion. On previous ER visit he had a CT angiogram that was negative. He also complains of palpitations, denies any dyspnea on exertion. Recently his complaint of epigastric for 1 week intermittently, he currently is on Nexium. Denies ever having upper endoscopy. Occasional NSAID use. No complaints of nausea, vomiting, hematemesis, change in bowel habits or bleeding per rectum. On admission he had a chest x-ray which was negative for acute findings. Past medical history: GERD Surgical history: Appendectomy Family history: 2 uncles from cardiac arrest, were less than 30 years old Social history: Positive for smoking, drinks alcohol on occasion, denies any substance abuse Allergies: No known drug allergies Medications: Nexium, occasional Motrin ROS: Systems reviewed with positive findings see HPI Past Patient History - Infectious Disease Hx of Infectious Diseases: None - Tetanus Immunizations Tetanus Immunization: Unknown - Past Social History Smoking Status: Current Some Days Smoker - CARDIAC Hx Cardiac Disorders: No - PULMONARY Hx Respiratory Disorders: No - NEUROLOGICAL Hx Neurological Disorder: No - HEENT Hx HEENT Problems: No - RENAL Hx Chronic Kidney Disease: No - ENDOCRINE/METABOLIC Hx Endocrine Disorders: No - HEMATOLOGICAL/ONCOLOGICAL Hx Blood Disorders: No - INTEGUMENTARY Hx Dermatological Problems: No - MUSCULOSKELETAL/RHEUMATOLOGICAL Hx Falls: No - GASTROINTESTINAL Hx Gastroesophageal Reflux: Yes - GENITOURINARY/GYNECOLOGICAL Hx Genitourinary Disorders: No - PSYCHIATRIC Hx Depression: Yes - SURGICAL HISTORY Hx Appendectomy: Yes - ANESTHESIA Hx Anesthesia: Yes Hx Anesthesia Reactions: No Hx Malignant Hyperthermia: No Meds Allergies/Adverse Reactions: Allergies Allergy/AdvReac Type Severity Reaction Status Date / Time No Known Allergies Allergy Verified 01/20/17 17:02 Physical Exam - Constitutional Appears: No Acute Distress - Head Exam Head Exam: NORMOCEPHALIC - Eye Exam Eye Exam: Normal appearance. absent: Scleral icterus - ENT Exam ENT Exam: Mucous Membranes Moist - Neck Exam Neck exam: Positive for: Normal Inspection - Respiratory Exam Respiratory Exam: Clear to Auscultation Bilateral, NORMAL BREATHING PATTERN. absent: Respiratory Distress - Cardiovascular Exam Cardiovascular Exam: +S1, +S2 - GI/Abdominal Exam GI & Abdominal Exam: Normal Bowel Sounds, Soft, Tenderness (epigastric). absent : Distended, Guarding, Organomegaly, Rebound - Extremities Exam Extremities exam: Positive for: calf tenderness, pedal pulses present. Negative for: pedal edema - Neurological Exam Neurological exam: Alert, CN II-XII Intact, Oriented x3 - Skin Skin Exam: Dry, Warm Results - Vital Signs Recent Vital Signs: Last Vital Signs Temp 97.6 F 01/21/17 06:00 Pulse 79 01/21/17 06:00 Resp 19 01/21/17 06:00 BP 101/62 01/21/17 06:00 Pulse Ox 99 01/21/17 06:00 - Labs Result Diagrams: 01/20/17 19:50 01/20/17 19:50 Labs: Laboratory Results - last 24 hr 01/21/17 07:25 Troponin I < 0.01 Assessment & Plan - Assessment and Plan (Free Text) Assessment: Assessment: Atypical chest pain, differentials consider cardiac pathology, peptic ulcer disease, gallbladder pathology GERD Tobacco use Plan: Request for abdominal ultrasound Start clear liquid diet Continue PPI Would benefit from endoscopic evaluation , plan after cardiac evaluation and recommendations Tobacco cessation Spoke to nursing staff. Thank you for this consult and for allowing us to participate in your patient's care, further recommendations based upon clinical course. Seen and discussed with Dr. Heard. <Dashawn Heard V - Last Filed: 01/21/17 23:18> Meds - Medications Medications: Current Medications Pantoprazole Sodium (Protonix Inj) 40 mg IVP DAILY CIARA Last Admin: 01/21/17 12:22 Dose: 40 mg Tramadol HCl (Ultram) 50 mg PO Q6 PRN PRN Reason: Pain, moderate (4-7) Last Admin: 01/21/17 16:05 Dose: 50 mg Results - Vital Signs Recent Vital Signs: Last Vital Signs Temp 98.2 F 01/21/17 18:00 Pulse 71 01/21/17 18:00 Resp 18 01/21/17 18:00 BP 116/72 01/21/17 18:00 Pulse Ox 99 01/21/17 06:00 - Labs Result Diagrams: 01/20/17 19:50 01/20/17 19:50 Labs: Laboratory Results - last 24 hr 01/21/17 07:25 Troponin I < 0.01 Attending/Attestation - Attestation I have personally seen and examined this patient.: Yes I have fully participated in the care of the patient.: Yes I have reviewed all pertinent clinical information: Yes Notes (Text): This is an addendum to GI progress report dictated by Marian Richmond APN.The patient was seen and examined earlier. Medical records, lab studies, imagings were reviewed. Last 24 hours events reviewed. Agreed with the above treatment plan as outlined in Marian Richmond APN's notes the with the addition of the following on examination abdomen soft mild tenderness on deep palpation in epigastric area otherwise unremarkable Discussed with the telegraph dispatcher Dr. Christine Rule out erosive esophagitis rule out peptic ulcer disease would benefit from endoscopy Follow-up with the ultrasound 01/21/17 23:16
--- NOTE | 2017-01-21 13:41 | HP ---
HISTORY OF PRESENT ILLNESS: This is a 26-year-old who is coming to the hospital complaining of chest pain. The patient has multiple visits in the ER for chest pain. He was here on 01/17/2017, 01/15/2017, and 01/10/2017 for chest pain. At that time, he had multiple cardiac enzymes with tropin, all have been negative to date. The patient stated that he gets this epigastric pain that goes in to his upper part of the chest. He said he had some shortness of breath, but this is better. He also complained of pain in the upper part of the back. He denies any fever or chills. No headaches, no dysuria or frequency, no nocturia. No weakness in the arms or the legs. He has history of anxiety and depression. REVIEW OF SYSTEMS: All other review of symptoms are within normal limits except what was mentioned. ALLERGIES: NO KNOWN DRUG ALLERGIES. HOME MEDICATIONS: Nexium. He says he took Nexium for 1 week and has not improved his symptoms. SOCIAL HISTORY: He smokes 3 cigarettes a day. He drinks socially. 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 FAMILY HISTORY: He says he has an uncle who had cardiac disease. PHYSICAL EXAMINATION VITAL SIGNS: Temperature is 98.3, pulse of 69, blood pressure is 113/65, respiration is 22, O2 saturation is 100%. Height is 5 feet 8 inches. Weight is 138 pounds. BMI is 21. GENERAL: The patient lying in bed, uncomfortable, and in no acute distress. HEENT: Atraumatic and normocephalic. Anicteric sclerae. Moist mucosa. [place] conjunctivae. No oral lesions. NECK: No JVD, anterior and posterior adenopathy, thyromegaly, or bruits. CARDIOVASCULAR: S1 and S2 regular. No murmur, rubs, or gallop. LUNGS: Clear to auscultation bilaterally. No wheezes, rales, or rhonchi. ABDOMEN: Bowel sounds are positive. Soft, nontender and nondistended. No hepatosplenomegaly. No rebound and no guarding EXTREMITIES: No cyanosis, clubbing, or edema. NEUROLOGIC: No facial asymmetry. Tongue is midline. No uvula deviation. Power is 5/5 upper extremity and lower extremity. Sensation intact in upper extremity and lower extremity. PSYCHIATRIC: He is awake, alert and oriented x3. No anxiety or depression. He has normal affect. GENITOURINARY: No CVA tenderness. VASCULAR: 2+ pulses in the carotid pulses and pedal pulses. SKIN: No erythema or nodules SPINE: Shows normal curvature. EXTREMITIES: No cyanosis and clubbing, no edema. LABORATORY DATA: Troponin x2 has been negative. Albumin is 4.9. White count of 5.1, hemoglobin 16, platelet count is 215. INR is 1.1. Urine shows ketones are negative, blood is negative, nitrates are negative. Urine tox is negative. His EKG shows sinus tachycardia of [address]-T changes. His chest x-ray done shows no infiltrates. ASSESSMENT: 1. Chest pain. 2. Anxiety. PLAN: The patient is currently comfortable. He is going to be seen by Cardiology and GI. He was given Pepcid and Protonix. The patient was given aspirin. He does not have any active chest pain at this point. His EKG shows sinus tachycardia. We will refer the input from the specialist. I did advise that he may be discharged if cleared by Cardiology and he may need further workup as an outpatient. CONDITION: Stable. ACTIVITIES: Increase as tolerated. Jin Ayers MD
--- NOTE | 2017-01-21 15:48 | US ---
HISTORY: Abdominal pain COMPARISON: None. TECHNIQUE: Grayscale imaging was performed. FINDINGS: LIVER: Measures 14.3 cm. There is mild diffuse increased echogenicity of the liver parenchyma. No mass. No intrahepatic bile duct dilatation. GALLBLADDER: There are no gallstones, wall thickening or pericholecystic fluid. The sonographic Hernández's sign is negative. COMMON BILE DUCT: Measures 3.3 mm. No stones. No dilatation. PANCREAS: Unremarkable as visualized. No mass. No ductal dilatation. RIGHT KIDNEY: Measures 9.7cm. Normal echogenicity. No calculus, mass, or hydronephrosis. There is a 4 mm calcification in the lower pole LEFT KIDNEY: Measures 9.9cm. Normal echogenicity. No calculus, mass, or hydronephrosis. SPLEEN: There is borderline splenomegaly. Normal echotexture. No mass. AORTA: No aneurysmal dilatation. IVC: Unremarkable. OTHER FINDINGS: None. IMPRESSION: Diffuse increased echogenicity in the liver may reflect hepatic steatosis however parenchymal infectious/ inflammatory etiologies cannot be entirely excluded. Clinical and laboratory correlation is advised. Borderline splenomegaly. No cholelithiasis or biliary dilatation.
--- NOTE | 2017-01-22 08:10 | CON ---
DATE: 01/21/2017 HISTORY OF PRESENT ILLNESS: The patient is a 26-year-old male who has been admitted to multiple hospitals for focal left sternal chest pain. He underwent a stress test and echocardiogram at [facility] recently which was said to be unremarkable. His cardiac risk factors include an occasional cigarette smoker. No diabetes mellitus. No hypertension. His family history is significant for coronary artery disease. His symptoms are free from positional, is not exertion related. 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 REVIEW OF SYSTEMS: A 14-point review of systems is reviewed in detail. No other cardiac symptomatology is noted. PHYSICAL EXAMINATION: VITAL SIGNS: Blood pressure is 112/65, the heart rate is in the 70s. NECK: Negative JVD. LUNGS: Without rales. HEART: With S1, S2. EXTREMITIES: Without edema. LABORATORY DATA: The hemoglobin is 16. Chemistries, BUN and creatinine are unremarkable. Troponins are negative x2. His EKG is within normal limits. His previous CT scan of the chest, which was performed on 01/15/2017, was unremarkable. There is no evidence for aortic aneurysm dissection or pulmonary embolism. In addition, I asked Radiology to re-look at his chest wall from his CT scan. There is no evidence of pectus excavatum. IMPRESSION: 1. Probable costochondritis. 2. No evidence for acute coronary syndrome. 3. No evidence for bony deformities. 4. Low probability for coronary artery disease. Given these findings, I have tried to explain to the patient about these findings. He does not appear to be happy until he gets a GI workup. We will discontinue telemetry today. No further cardiac workup is necessary at this time. Salvador Christine MD
[2017-01-22] MEDS ORDERED: Dextrose 5%/0.45% NS 1,000 ML IV SCH (10:30)
[2017-01-22] MEDS ORDERED: Propofol 10 mg/ml Inj (20 ML) ONE (10:42)
[2017-01-22] MEDS ORDERED: Midazolam 2 MG/2 ML VIAL ONE (11:23)
[2017-01-22] MEDS ORDERED: Sodium Chloride 0.9% 1,000 ML IV SCH (11:45)
[2017-01-22 11:46] VITALS: TEMP 97.9
[2017-01-22 11:52] VITALS: RESP 17
[2017-01-22 12:12] VITALS: BP 109/70; PULSE 61; O2SAT 98
--- NOTE | 2017-01-23 07:25 | PN ---
DATE: 01/22/2017 SUBJECTIVE: The patient says he continues to have substernal chest pain. He had an endoscopy done today, which showed gastric erosions, gastritis, duodenitis and esophagitis. He is going to be sent home on Protonix and follow as an outpatient. PHYSICAL EXAMINATION: VITAL SIGNS: Temperature 97.9, pulse 61, blood pressure 109/70, respirations 17. GENERAL: The patient is lying in bed, flat, comfortable. HEENT: No oral lesion. Anicteric sclerae. Moist mucosa. NECK: No JVD, adenopathy, or thyromegaly. CARDIOVASCULAR: S1 and S2, regular. No murmurs, rubs, or gallops. LUNGS: Clear to auscultation bilaterally. No wheeze, rales, or rhonchi. ABDOMEN: Bowel sounds are positive, soft, nontender and nondistended. EXTREMITIES: No cyanosis, clubbing or edema. ASSESSMENT: 1. Gastric erosion. 2. Gastritis. 3. Duodenitis. 4. Esophagitis. PLAN: The patient is currently comfortable. He is going to discharge home on Protonix. Condition is stable. Activities increase as tolerated. Jin Ayers MD
== END 2017-01-22 17:25 | disposition home or self-care (01) ==
LOC: ED 16:53 → ERH 21:11 → 2RNO 22:14
PROVIDERS: ADMIT Internal Medicine Nephrology; ATTEND Internal Medicine Nephrology
DX: K25.9 Gastric ulcer, unspecified as acute or chronic, without hemorrhage or perforation (principal); R07.9 Chest pain, unspecified; F41.9 Anxiety disorder, unspecified; K29.80 Duodenitis without bleeding; K21.0 Gastro-esophageal reflux disease with esophagitis; K29.50 Unspecified chronic gastritis without bleeding; M94.0 Chondrocostal junction syndrome [Tietze]; F32.89 Other specified depressive episodes; F17.210 Nicotine dependence, cigarettes, uncomplicated; Z82.41 Family history of sudden cardiac death; Z82.49 Family history of ischemic heart disease and other diseases of the circulatory system; Z90.49 Acquired absence of other specified parts of digestive tract
CPT/HCPCS: 36415; 43239; 71020; 76700; 80053; 81003; 82550; 83615; 83735; 84484; 85025; 85610; 85730; 88305; 88312; 88342; 93005; 99285; C9113; G0378; G0480; J2001; J2250; J2704; J3010; J7040

== ENCOUNTER 2017-01-23 22:19 | Emergency (ER) | payer MEDICAID, OTHER ==
[2017-01-23 22:30] VITALS: BMI 20.8
[2017-01-23 22:34] VITALS: BP 109/74; PULSE 96; RESP 18; TEMP 99.1; O2SAT 97
--- NOTE | 2017-01-23 23:27 | ED PDOC ---
Arrival/HPI - General Chief Complaint: Chest Pain Time Seen by Provider: 01/23/17 22:22 Historian: Patient - History of Present Illness Narrative History of Present Illness (Text): 01/23/17 23:17 A year old male/female, with no significant past medical history, presents to the emergency department for the sixth time within ten days complaining of chest pain. Patient has had workups including CT scans and upper endoscopy. Patient had an EGD test performed two days ago, which findings showed esophagitis and erosive gastritis. Results of EGD have been explained to patient , whom remains very skeptical due to consistent pain and insists he is experiencing heart pain. Patient is argumentative despite of the EGD results presented to him. Patient has no other complaints at this time. PMD: Dr. Cecil Antoine Quality: Stabbing Past Medical History - Provider Review Nursing Documentation Reviewed: Yes - Past History Past History: No Previous - Infectious Disease Hx of Infectious Diseases: None - Tetanus Immunization Tetanus Immunization: Unknown - Past Medical History Past Medical History: No Previous - Cardiac Hx Cardiac Disorders: No - Pulmonary Hx Respiratory Disorders: No - Neurological Hx Neurological Disorder: No - HEENT Hx HEENT Disorder: No - Renal Hx Renal Disorder: No - Endocrine/Metabolic Hx Endocrine Disorders: No - Hematological/Oncological Hx Blood Transfusions: No Hx Blood Transfusion Reaction: No - Integumentary Hx Dermatological Disorder: No - Musculoskeletal/Rheumatological Hx Falls: No - Gastrointestinal Hx Gastroesophageal Reflux: Yes - Genitourinary/Gynecological Hx Genitourinary Disorders: No - Psychiatric Hx Depression: Yes Hx Substance Use: No - Past Surgical History Past Surgical History: No Previous - Surgical History Hx Appendectomy: Yes - Anesthesia Hx Anesthesia Reactions: No Hx Malignant Hyperthermia: No - Suicidal Assessment Feels Threatened In Home Enviroment: No Family/Social History - Physician Review Nursing Documentation Reviewed: Yes Family/Social History: No Known Family HX Smoking Status: Current Some Days Smoker Hx Alcohol Use: Yes (social) Frequency of alcohol use: Socially Amount per day: 4 Hx Substance Use: No Hx Substance Use Treatment: No Allergies/Home Meds Allergies/Adverse Reactions: Allergies No Known Allergies Allergy (Verified 01/20/17 17:02) Review of Systems - Physician Review All systems were reviewed & negative as marked: Yes - Review of Systems Constitutional: absent: Fevers, Night Sweats Respiratory: absent: SOB, Cough Cardiovascular: Chest Pain Gastrointestinal: absent: Abdominal Pain, Diarrhea, Nausea, Vomiting Physical Exam Vital Signs Reviewed: Yes Vital Signs Temp Pulse Resp BP Pulse Ox 01/23/17 22:33 99.1 F 96 H 18 109/74 97 Temperature: Afebrile Blood Pressure: Normal Pulse: Regular Respiratory Rate: Normal Appearance: Positive for: Well-Appearing Pain Distress: None Mental Status: Positive for: Alert and Oriented X 3 - Systems Exam Head: Present: Atraumatic, Normocephalic Pupils: Present: PERRL Extroacular Muscles: Present: EOMI Conjunctiva: Present: Normal Mouth: Present: Moist Mucous Membranes Neck: Present: Normal Range of Motion Respiratory/Chest: Present: Clear to Auscultation, Good Air Exchange. No: Respiratory Distress, Accessory Muscle Use Cardiovascular: Present: Regular Rate and Rhythm, Normal S1, S2. No: Murmurs Abdomen: Present: Normal Bowel Sounds. No: Tenderness, Distention, Peritoneal Signs Back: Present: Normal Inspection Upper Extremity: Present: Normal Inspection. No: Cyanosis, Edema Lower Extremity: Present: Normal Inspection. No: Edema Neurological: Present: GCS=15, CN II-XII Intact, Speech Normal Skin: Present: Warm, Dry, Normal Color. No: Rashes Psychiatric: Present: Alert, Oriented x 3, Normal Insight, Normal Concentration Medical Decision Making ED Course and Treatment: 01/23/17 23:22 Impression: 26 year old male whom presents to the ER for the sixth time in ten days complaining of chest pain. Plan: -- Reassess and disposition Prior Visits: Notes and results from previous visits were reviewed. Patient was last seen here in the emergency department on 01/20/2017 for continuous chest pain associated with dizziness. Progress Notes: - Scribe Statement The provider has reviewed the documentation as recorded by the Erin Galindo Provider Scribe Attestation: All medical record entries made by the Erin were at my direction and personally dictated by me. I have reviewed the chart and agree that the record accurately reflects my personal performance of the history, physical exam, medical decision making, and the department course for this patient. I have also personally directed, reviewed, and agree with the discharge instructions and disposition. Disposition/Present on Arrival - Present on Arrival History of DVT/PE: No History of Uncontrolled Diabetes: No Urinary Catheter: No History of Decub. Ulcer: No History Surgical Site Infection Following: None - Disposition Diagnosis: Esophagitis, acute Discharge Instructions (ExitCare): Esophagitis (ED) Prescriptions: Sucralfate [Carafate] 1 gm PO ONCE #1 dose Referrals: Cecil Antoine MD [Primary Care Provider] - Follow up with primary Forms: [employer] (Turkmen)
--- NOTE | 2017-01-23 23:28 | ED PDOC ---
Arrival/HPI - General Chief Complaint: Chest Pain Time Seen by Provider: 01/23/17 22:22 Historian: Patient - History of Present Illness Narrative History of Present Illness (Text): 01/23/17 23:17 A year old male/female, with no significant past medical history, presents to the emergency department for the sixth time within ten days complaining of chest pain. Patient has had workups including CT scans and upper endoscopy. Patient had an EGD test performed two days ago, which findings showed esophagitis and erosive gastritis. Results of EGD have been explained to patient , whom remains very skeptical due to consistent pain and insists he is experiencing heart pain. Patient is argumentative despite of the EGD results presented to him. Patient has no other complaints at this time. PMD: Dr. Cecil Antoine Quality: Stabbing Past Medical History - Provider Review Nursing Documentation Reviewed: Yes - Past History Past History: No Previous - Infectious Disease Hx of Infectious Diseases: None - Tetanus Immunization Tetanus Immunization: Unknown - Past Medical History Past Medical History: No Previous - Cardiac Hx Cardiac Disorders: No - Pulmonary Hx Respiratory Disorders: No - Neurological Hx Neurological Disorder: No - HEENT Hx HEENT Disorder: No - Renal Hx Renal Disorder: No - Endocrine/Metabolic Hx Endocrine Disorders: No - Hematological/Oncological Hx Blood Transfusions: No Hx Blood Transfusion Reaction: No - Integumentary Hx Dermatological Disorder: No - Musculoskeletal/Rheumatological Hx Falls: No - Gastrointestinal Hx Gastroesophageal Reflux: Yes - Genitourinary/Gynecological Hx Genitourinary Disorders: No - Psychiatric Hx Depression: Yes Hx Substance Use: No - Past Surgical History Past Surgical History: No Previous - Surgical History Hx Appendectomy: Yes - Anesthesia Hx Anesthesia Reactions: No Hx Malignant Hyperthermia: No - Suicidal Assessment Feels Threatened In Home Enviroment: No Family/Social History - Physician Review Nursing Documentation Reviewed: Yes Family/Social History: No Known Family HX Smoking Status: Current Some Days Smoker Hx Alcohol Use: Yes (social) Frequency of alcohol use: Socially Amount per day: 4 Hx Substance Use: No Hx Substance Use Treatment: No Allergies/Home Meds Allergies/Adverse Reactions: Allergies No Known Allergies Allergy (Verified 01/20/17 17:02) Review of Systems - Physician Review All systems were reviewed & negative as marked: Yes - Review of Systems Constitutional: absent: Fevers, Night Sweats Respiratory: absent: SOB, Cough Cardiovascular: Chest Pain Gastrointestinal: absent: Abdominal Pain Physical Exam Vital Signs Reviewed: Yes Vital Signs Temp Pulse Resp BP Pulse Ox 01/23/17 22:33 99.1 F 96 H 18 109/74 97 Temperature: Afebrile Blood Pressure: Normal Pulse: Regular Respiratory Rate: Normal Appearance: Positive for: Well-Appearing Pain Distress: None Mental Status: Positive for: Alert and Oriented X 3 - Systems Exam Head: Present: Atraumatic, Normocephalic Pupils: Present: PERRL Extroacular Muscles: Present: EOMI Conjunctiva: Present: Normal Mouth: Present: Moist Mucous Membranes Neck: Present: Normal Range of Motion Respiratory/Chest: Present: Clear to Auscultation, Good Air Exchange. No: Respiratory Distress, Accessory Muscle Use Cardiovascular: Present: Regular Rate and Rhythm, Normal S1, S2. No: Murmurs Abdomen: Present: Normal Bowel Sounds. No: Tenderness, Distention, Peritoneal Signs Back: Present: Normal Inspection Upper Extremity: Present: Normal Inspection. No: Cyanosis, Edema Lower Extremity: Present: Normal Inspection. No: Edema Neurological: Present: GCS=15, CN II-XII Intact, Speech Normal Skin: Present: Warm, Dry, Normal Color. No: Rashes Psychiatric: Present: Alert, Oriented x 3, Normal Insight, Normal Concentration Medical Decision Making ED Course and Treatment: 01/23/17 23:22 Impression: 26 year old male whom presents to the ER for the sixth time in ten days complaining of chest pain. No acute findings in physical exam. Plan: -- Reassess and disposition Prior Visits: Notes and results from previous visits were reviewed. Patient was last seen here in the emergency department on 01/20/2017 for continuous chest pain associated with dizziness. Progress Notes: - EKG Interpretation EKG Interpretation (Text): 01/24/17 00:18 Ekg demonstrates a NSR at 93 BPM,no acute sttw changes,no ectopy.No old ekgs for comparison Interpreted by ED Physician: Yes Type: 12 lead EKG Comparison: No previous EKG avail. - Medication Orders Current Medication Orders: Discontinued Medications Sucralfate (Carafate Oral Susp) 1 gm PO STAT STA Stop: 01/23/17 23:36 Last Admin: 01/23/17 23:51 Dose: 1 gm - Scribe Statement The provider has reviewed the documentation as recorded by the Scribe Kelli Martinsdi Provider Scribe Attestation: All medical record entries made by the Scribe were at my direction and personally dictated by me. I have reviewed the chart and agree that the record accurately reflects my personal performance of the history, physical exam, medical decision making, and the department course for this patient. I have also personally directed, reviewed, and agree with the discharge instructions and disposition. Disposition/Present on Arrival - Present on Arrival Any Indicators Present on Arrival: No History of DVT/PE: No History of Uncontrolled Diabetes: No Urinary Catheter: No History of Decub. Ulcer: No History Surgical Site Infection Following: None - Disposition Have Diagnosis and Disposition been Completed?: Yes Diagnosis: Esophagitis, acute Disposition: HOME/ ROUTINE Disposition Time: 23:21 Patient Plan: Discharge Condition: GOOD Discharge Instructions (ExitCare): Esophagitis (ED) Prescriptions: Sucralfate [Carafate] 1 gm PO ONCE #1 dose Sucralfate [Carafate] 1 gm PO QID 10 Days #40 dose Sucralfate [Carafate Oral Susp] 1 gm PO QID #400 ml Referrals: Cecil Antoine MD [Primary Care Provider] - Follow up with primary Forms: [employer] (Trinidadian)
[2017-01-23] MEDS ORDERED: Sucralfate 1 gm/10 ml Oral Susp UD PO STA (23:35)
--- NOTE | 2017-01-26 08:58 | CARD ---
APPROVED REPORT EKG Measurement Heart [id number] IN [id number] <Conclusion> Normal sinus rhythm LVH by voltage, could be a normal variant Probably normal ECG No change
== END 2017-01-24 00:16 | disposition home or self-care (01) ==
LOC: ED 22:19
DX: K20.9 Esophagitis, unspecified (principal); F17.200 Nicotine dependence, unspecified, uncomplicated

== ENCOUNTER 2017-01-29 15:44 | Emergency (ER) | payer MEDICAID, OTHER ==
[2017-01-29 15:58] VITALS: BP 104/42; PULSE 89; RESP 18; TEMP 97.7; O2SAT 99; BMI 20.9
[2017-01-29] MEDS ORDERED: Alum-Mag Hydrox-Simethicone Susp (30 mL) PO STA (16:19)
[2017-01-29] MEDS ORDERED: Atrop/Hyosc/Scopal/PB Elixir (120 ml) PO STA (16:19)
--- NOTE | 2017-01-29 16:46 | ED PDOC ---
Arrival/HPI - General Chief Complaint: Chest Pain Time Seen by Provider: 01/29/17 15:51 Historian: Patient - History of Present Illness Narrative History of Present Illness (Text): 01/29/17 17:26 26 y/o male w/ pmhof 01/22/17 egd diagnosed esophagitis/erosive gastritis and duodenieits, rpsents s/o epigastric pain radiating through mscp, burining on quality , and today was recelcitrant to nexium applique and maalox prn imbibement. 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 Denies recent noncompliance on antacids/ppi /exertional exacebation,brbpr/ melena nor any coffee ground emesis pain was decrribed as sharp and unrelenting although relatively muchin ed. . Time/Duration: 4-6 hours Past Medical History - Provider Review Nursing Documentation Reviewed: Yes - Past History Past History: No Previous - Infectious Disease Hx of Infectious Diseases: None - Tetanus Immunization Tetanus Immunization: Unknown - Past Medical History Past Medical History: No Previous - Cardiac Hx Cardiac Disorders: No - Pulmonary Hx Respiratory Disorders: No - Neurological Hx Neurological Disorder: No - HEENT Hx HEENT Disorder: No - Renal Hx Renal Disorder: No - Endocrine/Metabolic Hx Endocrine Disorders: No - Hematological/Oncological Hx Blood Transfusions: No Hx Blood Transfusion Reaction: No - Integumentary Hx Dermatological Disorder: No - Musculoskeletal/Rheumatological Hx Falls: No - Gastrointestinal Hx Gastrointestinal Disorders: Yes Hx Gastroesophageal Reflux: Yes Hx Gastrointestinal Ulcer: Yes - Genitourinary/Gynecological Hx Genitourinary Disorders: No - Psychiatric Hx Depression: Yes Hx Substance Use: No - Past Surgical History Past Surgical History: No Previous - Surgical History Hx Appendectomy: Yes Other/Comment: endoscopy - Anesthesia Hx Anesthesia: Yes Hx Anesthesia Reactions: No Hx Malignant Hyperthermia: No - Suicidal Assessment Feels Threatened In Home Enviroment: No Family/Social History - Physician Review Nursing Documentation Reviewed: Yes Family/Social History: No Known Family HX Smoking Status: Current Some Days Smoker Hx Alcohol Use: Yes (social) Amount per day: 4 Hx Substance Use: No Hx Substance Use Treatment: No Allergies/Home Meds Allergies/Adverse Reactions: Allergies No Known Allergies Allergy (Verified 01/29/17 15:54) Home Medications: Home Meds Medication Instructions Recorded Confirmed Pantoprazole Sodium [Protonix] 40 mg PO DAILY 01/29/17 01/29/17 Review of Systems - Physician Review All systems were reviewed & negative as marked: Yes - Review of Systems Constitutional: Normal Eyes: Normal ENT: Normal Respiratory: Normal Cardiovascular: Normal Gastrointestinal: Normal Genitourinary Male: Normal Musculoskeletal: Normal Skin: Normal Neurological: Normal Endocrine: Normal Hemo/Lymphatic: Normal Psychiatric: Normal Physical Exam Vital Signs Reviewed: Yes Vital Signs Temp Pulse Resp BP Pulse Ox 01/29/17 15:55 97.7 F 89 18 104/42 L 99 - Systems Exam Head: Present: Atraumatic, Normocephalic Pupils: Present: PERRL Extroacular Muscles: Present: EOMI Conjunctiva: Present: Normal Mouth: Present: Moist Mucous Membranes Neck: Present: Normal Range of Motion Respiratory/Chest: Present: Clear to Auscultation, Good Air Exchange. No: Respiratory Distress, Accessory Muscle Use Cardiovascular: Present: Regular Rate and Rhythm, Normal S1, S2. No: Murmurs Abdomen: Present: Normal Bowel Sounds. No: Tenderness, Distention, Peritoneal Signs Back: Present: Normal Inspection Upper Extremity: Present: Normal Inspection. No: Cyanosis, Edema Lower Extremity: Present: Normal Inspection. No: Edema Neurological: Present: GCS=15, CN II-XII Intact, Speech Normal, Motor Func Grossly Intact, Normal Sensory Function, Normal Cerebellar Funct, Norm Deep Tendon Reflexes, Gait Normal, Memory Normal, Normal 2Pt Descrimination Skin: Present: Warm, Dry, Normal Color. No: Rashes Psychiatric: Present: Alert, Oriented x 3, Normal Insight, Normal Concentration Medical Decision Making ED Course and Treatment: 01/29/17 16:43 Impression: A 26 year old male whom states he is diagnosed with ulcer in epigastric region found in endoscopy results on 01/20/2017 and states meds are not working, complains of midsternal chest pain. Plan: -- EKG -- Chest X-Ray -- Maalox -- Elixir -- Lidocaine -- Reassess and disposition Prior Visits: Notes and results from previous visits were reviewed. Patient was last seen here in the emergency department on 01/23/2017 for chest pain. Patient has visited the emergency department many times for similar complaints. Last diagnosis was erosive gastritis and esophagitis from 01/20/2017 visit. Patient was explained this but at the time refused to believe diagnosis and was convinced of experiencing heart pain. Patient was argumentative despite of the EGD results presented to him. Progress Notes: EKG: Ordered, reviewed, and independently interpreted the EKG. Rate : 70 BPM Rhythm : NSR Interpretation : No arrhythmogenic intervals. No ischemic ST-T segments. 01/29/17 18:37 pain still extant but feels better. - RAD Interpretation Radiology Orders: 01/29/17 16:22 CHEST TWO VIEWS (PA/LAT) [RAD] Stat - Medication Orders Current Medication Orders: Discontinued Medications Al Hydrox/Mg Hydrox/Simethicone (Maalox Plus 30 Ml) 30 ml PO STAT STA Stop: 01/29/17 16:20 Last Admin: 01/29/17 16:49 Dose: 30 ml Belladonna/Phenobarbital ( Elixir) 5 ml PO STAT STA Stop: 01/29/17 16:20 Last Admin: 01/29/17 17:36 Dose: 5 ml Lidocaine HCl (Lidocaine 2% Viscous) 15 ml PO ONCE ONE Stop: 01/29/17 16:20 Last Admin: 01/29/17 16:48 Dose: 15 ml Sucralfate (Carafate Oral Susp) 1 gm PO STAT STA Stop: 01/29/17 17:09 Disposition/Present on Arrival - Present on Arrival Any Indicators Present on Arrival: No History of DVT/PE: No History of Uncontrolled Diabetes: No Urinary Catheter: No History of Decub. Ulcer: No History Surgical Site Infection Following: None - Disposition Have Diagnosis and Disposition been Completed?: Yes Diagnosis: Esophagitis, Gastritis and duodenitis Disposition: HOME/ ROUTINE Disposition Time: 18:38 Patient Plan: Discharge Patient Problems: Current Active Problems Problem Status Onset Esophagitis Acute Gastritis and duodenitis Acute Condition: IMPROVED Discharge Instructions (ExitCare): Gastritis (ED), Diet for Ulcers and Gastritis (ED), Esophagitis (ED) Print Language: SERBIAN Additional Instructions: please eat a blkand simple diet of smaller meals such as banans, oatmeal, cream of cereals, brothy foods, toast, papaya avoid cigarettes/cofee/liquor/meats.cheeses. Prescriptions: Sucralfate [Carafate Oral Susp] 1 gm PO QID PRN 20 Days dose PRN Reason: Dyspepsia Referrals: Cecil Antoine MD [Primary Care Provider] - Follow up with primary Forms: [employer] (Z[place]an)
[2017-01-29] MEDS ORDERED: Sucralfate 1 gm/10 ml Oral Susp UD PO STA (17:08)
--- NOTE | 2017-01-29 22:04 | CARD ---
APPROVED REPORT EKG Measurement Heart [id number] PA 146P78 [id number] <Conclusion> Normal sinus rhythm Normal ECG
--- NOTE | 2017-01-30 11:03 | RAD ---
HISTORY: routine med exam COMPARISON: 01/20/2017 TECHNIQUE: Chest PA and lateral FINDINGS: LUNGS: No active pulmonary disease. PLEURA: No significant pleural effusion identified. No pneumothorax apparent. CARDIOVASCULAR: Normal. OSSEOUS STRUCTURES: Mild curvature of the upper thoracic spine VISUALIZED UPPER ABDOMEN: Normal. OTHER FINDINGS: None. IMPRESSION: No active disease.
== END 2017-01-29 19:12 | disposition home or self-care (01) ==
LOC: ED 15:44
DX: K20.9 Esophagitis, unspecified (principal); K29.70 Gastritis, unspecified, without bleeding; K29.80 Duodenitis without bleeding

== ENCOUNTER 2017-02-10 12:42 | Emergency (ER) | payer MEDICAID ==
[2017-02-10 13:17] VITALS: RESP 18; BMI 20.8
[2017-02-10 14:08] VITALS: BP 114/79; PULSE 89; TEMP 99; O2SAT 99
--- NOTE | 2017-02-10 15:19 | ED PDOC ---
Arrival/HPI - General Chief Complaint: Chest Pain Time Seen by Provider: 02/10/17 14:17 Historian: Patient - History of Present Illness Narrative History of Present Illness (Text): 02/10/17 15:06 A 26 year old male,with whose past medical history includes gastric ulcer and esophogitis, on the omeprazole and sulcrafate, presents to the emergency department with a complaint of mid sternal chest discomfort. He states that he was recently diagnosed with a gastric ulcer and has been taking medications for it, but has not had any improvement for his chest discomfort. Patient denies fevers, chills, headache, dizziness,shortness of breath, dyspnea on exertion, cough, abdominal pain, nausea, vomiting, diarrhea, back pain, neck pain, urinary /bowel changes, or any other complaint. Time/Duration: > month Symptom Onset: Sudden Symptom Course: Unchanged Activities at Onset: Rest Context: Home Past Medical History - Provider Review Nursing Documentation Reviewed: Yes - Past History Past History: No Previous - Infectious Disease Hx of Infectious Diseases: None - Tetanus Immunization Tetanus Immunization: Unknown - Past Medical History Past Medical History: No Previous - Cardiac Hx Cardiac Disorders: No - Pulmonary Hx Respiratory Disorders: No - Neurological Hx Neurological Disorder: No - HEENT Hx HEENT Disorder: No - Renal Hx Renal Disorder: No - Endocrine/Metabolic Hx Endocrine Disorders: No - Hematological/Oncological Hx Blood Transfusions: No Hx Blood Transfusion Reaction: No - Integumentary Hx Dermatological Disorder: No - Musculoskeletal/Rheumatological Hx Falls: No - Gastrointestinal Hx Gastrointestinal Disorders: Yes Hx Gastroesophageal Reflux: Yes Hx Gastrointestinal Ulcer: Yes - Genitourinary/Gynecological Hx Genitourinary Disorders: No - Psychiatric Hx Depression: Yes Hx Substance Use: No - Past Surgical History Past Surgical History: No Previous - Surgical History Hx Appendectomy: Yes Other/Comment: endoscopy - Anesthesia Hx Anesthesia: Yes Hx Anesthesia Reactions: No Hx Malignant Hyperthermia: No - Suicidal Assessment Feels Threatened In Home Enviroment: No Family/Social History - Physician Review Nursing Documentation Reviewed: Yes Family/Social History: No Known Family HX Smoking Status: Former Smoker Hx Alcohol Use: Yes (social) Amount per day: 4 Hx Substance Use: No Hx Substance Use Treatment: No Allergies/Home Meds Allergies/Adverse Reactions: Allergies No Known Allergies Allergy (Verified 02/10/17 13:11) Home Medications: Home Meds Medication Instructions Recorded Confirmed Sucralfate [Carafate] 1 gm PO QID 02/07/17 02/10/17 Vitamin B Complex [Nature's Blend 1 tab PO DAILY 02/07/17 02/10/17 Balance B-100] Review of Systems - Physician Review All systems were reviewed & negative as marked: Yes - Review of Systems Constitutional: absent: Fevers, Night Sweats Respiratory: absent: SOB, Cough Cardiovascular: Chest Pain Gastrointestinal: absent: Abdominal Pain, Stool Changes, Diarrhea, Nausea, Vomiting Genitourinary Male: absent: Urinary Output Changes Musculoskeletal: absent: Back Pain, Neck Pain Neurological: absent: Headache, Dizziness Physical Exam Vital Signs Reviewed: Yes Vital Signs Temp Pulse Resp BP Pulse Ox 02/10/17 14:08 89 18 114/79 99 02/10/17 14:04 99.0 F 79 20 145/91 H 99 02/10/17 13:12 98.0 F 97 H 18 116/82 98 Temperature: Afebrile Blood Pressure: Normal Pulse: Tachycardic Respiratory Rate: Normal Appearance: Positive for: Well-Appearing, Non-Toxic, Comfortable Pain Distress: None Mental Status: Positive for: Alert and Oriented X 3 - Systems Exam Head: Present: Atraumatic, Normocephalic Pupils: Present: PERRL Extroacular Muscles: Present: EOMI Conjunctiva: Present: Normal Mouth: Present: Moist Mucous Membranes Neck: Present: Normal Range of Motion Respiratory/Chest: Present: Clear to Auscultation, Good Air Exchange. No: Respiratory Distress, Accessory Muscle Use Cardiovascular: Present: Regular Rate and Rhythm, Normal S1, S2. No: Murmurs Abdomen: Present: Normal Bowel Sounds. No: Tenderness, Distention, Peritoneal Signs Back: Present: Normal Inspection Upper Extremity: Present: Normal Inspection. No: Cyanosis, Edema Lower Extremity: Present: Normal Inspection. No: Edema Neurological: Present: GCS=15, CN II-XII Intact, Speech Normal Skin: Present: Warm, Dry, Normal Color. No: Rashes Psychiatric: Present: Alert, Oriented x 3, Normal Insight, Normal Concentration Medical Decision Making ED Course and Treatment: 02/10/17 15:20 Impression: A 26 year old male presents with a complaint of mid- sternal chest discomfort secondary to gastritis/refluz Plan: -- EKG -- Pepcid -- Reassess and disposition Prior Visits: Notes and results from previous visits were reviewed. Patient was last seen in the emergency department on 02/08/17. The patient was seen in the emergency department complaining of epigastric and chest pain for 1 month. Patient was discharged home. Progress Notes: EKG: Ordered, reviewed, and independently interpreted the EKG. Rate : 79 BPM Rhythm : NSR Comparison : No changes from EKG on 02/08/17. 02/10/17 15:42: Patient advised to follow up with his bilingual interpreter, Dr. Eastman and also given a Referral to Die Casting Supervisor, Dr. Coleman. - Lab Interpretations I have reviewed the lab results: Yes - EKG Interpretation Interpreted by ED Physician: Yes Type: 12 lead EKG - Medication Orders Current Medication Orders: Discontinued Medications Famotidine (Pepcid) 20 mg PO STAT STA Stop: 02/10/17 14:46 Last Admin: 02/10/17 14:55 Dose: 20 mg - Scribe Statement The provider has reviewed the documentation as recorded by the Erin Traylor Provider Scribe Attestation: All medical record entries made by the Silvanaibe were at my direction and personally dictated by me. I have reviewed the chart and agree that the record accurately reflects my personal performance of the history, physical exam, medical decision making, and the department course for this patient. I have also personally directed, reviewed, and agree with the discharge instructions and disposition. Disposition/Present on Arrival - Present on Arrival Any Indicators Present on Arrival: No History of DVT/PE: No History of Uncontrolled Diabetes: No Urinary Catheter: No History of Decub. Ulcer: No History Surgical Site Infection Following: None - Disposition Have Diagnosis and Disposition been Completed?: Yes Diagnosis: Chest pain Disposition: HOME/ ROUTINE Disposition Time: 15:56 Patient Plan: Discharge Condition: GOOD Discharge Instructions (ExitCare): Chest Pain (ED), Chest Pain (DC), Gastroesophageal Reflux Disease (ED) Additional Instructions: Mr Lopez, thank you for letting us take care of you today. Your provider was Dr. Garcia. You were treated for Chest Pain. The emergency medical care you received today was directed at your acute symptoms. If you were prescribed any medication, please fill it and take as directed. It may take several days for your symptoms to resolve. Return to the Emergency Department if your symptoms worsen, do not improve, or if you have any other problems. Please contact your doctor or call one of the physicians/clinics you have been referred to that are listed on the Patient Visit Information form that is included in your discharge packet. Bring any paperwork you were given at discharge with you along with any medications you are taking to your follow up visit. Our treatment cannot replace ongoing medical care by a primary care provider (PCP) outside of the emergency department. Thank you for allowing the [facility] team to be part of your care today. If you had an X-Ray or CT scan: A Radiologist will review the ED reading if any change in treatment is needed we will contact you. If you had a blood, urine, or wound culture: It will take several days for the results, if any change in treatment is needed we will contact you. If you had an STI test: It will take 48 hours for the results. Please call after 1 week if you have not heard back. Prescriptions: Ranitidine HCl [Zantac] 150 mg PO BID PRN #30 tablet PRN Reason: Pain, Mild (1-3) Referrals: Kermit Coleman MD [Staff Provider] - Follow up with primary Forms: [employer] (Chinese)
--- NOTE | 2017-02-11 10:13 | CARD ---
APPROVED REPORT EKG Measurement Heart [id number] [place] 140P80 [id number] <Conclusion> Normal sinus rhythm Rightward axis Borderline ECG
== END 2017-02-10 15:56 | disposition home or self-care (01) ==
LOC: ED 12:42
DX: R07.9 Chest pain, unspecified (principal); Z87.891 Personal history of nicotine dependence

== ENCOUNTER 2017-02-14 20:50 | Emergency (ER) | payer MEDICAID ==
[2017-02-14 21:05] VITALS: BP 117/64; TEMP 98; BMI 20.8
[2017-02-14] MEDS ORDERED: Sodium Chloride 0.9% 1,000 ML IV STA (21:18)
[2017-02-14] MEDS ORDERED: Alum-Mag Hydrox-Simethicone Susp (30 mL) PO STA (21:20)
--- NOTE | 2017-02-14 21:41 | ED PDOC ---
Arrival/HPI - General Chief Complaint: Chest Pain Time Seen by Provider: 02/14/17 20:54 - History of Present Illness Narrative History of Present Illness (Text): 26 y/o male w/ pmhx of diagnosed gastritis/esophagitis , multiple visits over the past 6 weeks for similar complaints, advised to f/u w/ Dr. Coleman last visit returns c/o continuing typically postprandially induced epigastric pain, midsubsternal radiation w/ no associated n/v/melena/nor endorsed noncompliance on his prescribed ppI/sucralfate/maalox/ nor H1 antagonist, at times he states the pain is not postprandially exacerbated but at times exertionally exacerbated though never w/ cold diaphoresis /sob/charles/recent decreased exercise tolerance. However, when his diet choices were interrogated it includes foods such as bagel w/ guzman egg and cheese and other possible dietary indiscretions, although he remains tobacco free/denies etoh imbibement. 02/14/17 21:30 Past Medical History - Provider Review Nursing Documentation Reviewed: Yes - Past History Past History: No Previous - Infectious Disease Hx of Infectious Diseases: None - Tetanus Immunization Tetanus Immunization: Unknown - Past Medical History Past Medical History: No Previous - Cardiac Hx Cardiac Disorders: No - Pulmonary Hx Respiratory Disorders: No - Neurological Hx Neurological Disorder: No - HEENT Hx HEENT Disorder: No - Renal Hx Renal Disorder: No - Endocrine/Metabolic Hx Endocrine Disorders: No - Hematological/Oncological Hx Blood Transfusions: No Hx Blood Transfusion Reaction: No - Integumentary Hx Dermatological Disorder: No - Musculoskeletal/Rheumatological Hx Falls: No - Gastrointestinal Hx Gastrointestinal Disorders: Yes Hx Gastroesophageal Reflux: Yes Hx Gastrointestinal Ulcer: Yes - Genitourinary/Gynecological Hx Genitourinary Disorders: No - Psychiatric Hx Depression: Yes Hx Substance Use: No - Past Surgical History Past Surgical History: No Previous - Surgical History Hx Appendectomy: Yes Other/Comment: endoscopy - Anesthesia Hx Anesthesia: Yes Hx Anesthesia Reactions: No Hx Malignant Hyperthermia: No - Suicidal Assessment Feels Threatened In Home Enviroment: No Family/Social History - Physician Review Nursing Documentation Reviewed: Yes Family/Social History: No Known Family HX Smoking Status: Former Smoker Hx Alcohol Use: Yes (social) Amount per day: 4 Hx Substance Use: No Hx Substance Use Treatment: No Allergies/Home Meds Allergies/Adverse Reactions: Allergies No Known Allergies Allergy (Verified 02/14/17 21:02) Home Medications: Home Meds Medication Instructions Recorded Confirmed Sucralfate [Carafate] 1 gm PO QID 02/07/17 02/14/17 Vitamin B Complex [Nature's Blend 1 tab PO DAILY 02/07/17 02/14/17 Balance B-100] Review of Systems - Physician Review All systems were reviewed & negative as marked: Yes - Review of Systems Constitutional: Normal Eyes: Normal ENT: Normal Respiratory: Normal Cardiovascular: Normal Gastrointestinal: Abdominal Pain Genitourinary Male: Normal Musculoskeletal: Normal Skin: Normal Neurological: Normal Endocrine: Normal Hemo/Lymphatic: Normal Psychiatric: Normal Physical Exam Vital Signs Reviewed: Yes Vital Signs Temp Pulse Pulse Resp BP BP Pulse Ox 02/14/17 21:05 90 117/64 02/14/17 21:03 98.0 F 90 17 117/64 98 02/14/17 21:02 98.0 F 90 17 117/64 98 Temperature: Afebrile Blood Pressure: Normal Pulse: Regular Respiratory Rate: Normal Appearance: Positive for: Well-Appearing, Non-Toxic, Comfortable Pain Distress: None Mental Status: Positive for: Alert and Oriented X 3 - Systems Exam Head: Present: Atraumatic, Normocephalic Pupils: Present: PERRL Extroacular Muscles: Present: EOMI Conjunctiva: Present: Normal Mouth: Present: Moist Mucous Membranes Neck: Present: Normal Range of Motion Respiratory/Chest: Present: Clear to Auscultation, Good Air Exchange. No: Respiratory Distress, Accessory Muscle Use Cardiovascular: Present: Regular Rate and Rhythm, Normal S1, S2. No: Murmurs Abdomen: Present: Normal Bowel Sounds, Other (soft, nt, nd ). No: Tenderness, Distention, Peritoneal Signs Back: Present: Normal Inspection Upper Extremity: Present: Normal Inspection. No: Cyanosis, Edema Lower Extremity: Present: Normal Inspection. No: Edema Neurological: Present: GCS=15, CN II-XII Intact, Speech Normal, Motor Func Grossly Intact, Normal Sensory Function, Normal Cerebellar Funct, Norm Deep Tendon Reflexes, Gait Normal, Memory Normal, Normal 2Pt Descrimination Skin: Present: Warm, Dry, Normal Color. No: Rashes Psychiatric: Present: Alert, Oriented x 3, Normal Insight, Normal Concentration Medical Decision Making ED Course and Treatment: nsr @ 78 bpm qtc : 410 mS , no ischemic st-t changes. cp likley gastritis d/t dietary indiscrretion , r/o Mi w/ 1 set of ce's'/ekg's only given duration of symptoms for several days. will advise GI f/u urgently for possible therapeutic s for refractory gastritic cases as well dietary advisory. 02/14/17 21:43 02/14/17 23:29 serial bowel exams benign, pochallenge poassed. Feels better, wants to go home. ill be advised to f/oollow up with Gi earlier and to monitor diet more closely - Lab Interpretations Lab Results: 02/14/17 21:37 02/14/17 21:37 Lab Results 02/14/17 21:50: Urine Opiates Screen Negative, Urine Methadone Screen Negative, Ur Barbiturates Screen Negative, Ur Phencyclidine Scrn Negative, Ur Amphetamines Screen Negative, U Benzodiazepines Scrn Negative, U Oth Cocaine Metabols Negative, U Cannabinoids Screen Negative 02/14/17 21:50: Urine Color Yellow, Urine Appearance Clear, Urine pH 7.0, Ur Specific [place] 1.010, Urine Protein Negative, Urine Glucose (UA) Negative, Urine Ketones Negative, Urine Blood Negative, Urine Nitrate Negative, Urine Bilirubin Negative, Urine Urobilinogen 0.2, Ur Leukocyte Esterase Negative 02/14/17 21:37: Sodium 141, Potassium 4.2, Chloride 103, Carbon Dioxide 29, Anion Gap 13, BUN 17, Creatinine 1.0, Est GFR ( Amer) > 60, Est GFR (Non- Af Amer) > 60, Random Glucose 105, Calcium 9.8, Total Bilirubin 0.5, AST 23, ALT 38, Alkaline Phosphatase 76, Lactate Dehydrogenase 354, Total Creatine Kinase 37, Troponin I < 0.01, Total Protein 7.3, Albumin 4.7, Globulin 2.6, Albumin/Globulin Ratio 1.8, Lipase 119 02/14/17 21:37: PT 11.6, INR 1.06, APTT 31.4 02/14/17 21:37: WBC 4.7, RBC 5.55, Hgb 15.1, Hct 44.7, MCV 80.5, MCH 27.2, MCHC 33.8, RDW 12.9, Plt Count 206, MPV 10.8, Gran % 55.4, Lymph % (Auto) 34.7, [place] % (Auto) 7.6 H, Eos % (Auto) 2.1, Baso % (Auto) 0.2, Gran # 2.62, Lymph # 1.6, [place] # 0.4, Eos # 0.1, Baso # 0.01 - RAD Interpretation Radiology Orders: 02/14/17 21:15 CHEST TWO VIEWS (PA/LAT) [RAD] Stat - Medication Orders Current Medication Orders: Discontinued Medications Al Hydrox/Mg Hydrox/Simethicone (Maalox Plus 30 Ml) 30 ml PO STAT STA Stop: 02/14/17 21:21 Last Admin: 02/14/17 21:51 Dose: 30 ml Famotidine (Pepcid) 20 mg IVP DAILY CIARA Famotidine (Pepcid) 20 mg IVP STAT STA Stop: 02/14/17 22:10 Last Admin: 02/14/17 22:38 Dose: 20 mg IVP Administration Document 02/14/17 22:38 [email or web address] (Rec: 02/14/17 22:[id number]) Charges for Administration # of IVP Administrations 1 Sodium Chloride (Sodium Chloride 0.9%) 1,000 mls @ 999 mls/hr IV .Q1H1M STA Stop: 02/14/17 22:18 Last Admin: 02/14/17 21:51 Dose: 999 mls/hr eMAR Start Stop Document 02/14/17 21:51 [email or web address] (Rec: 02/14/17 21:[id number]) Intravenous Solution Start Date 02/14/17 Start Time 21:51 End Date 02/14/17 Pantoprazole Sodium (Protonix Inj) 40 mg IVP STAT STA Stop: 02/14/17 22:10 Last Admin: 02/14/17 22:38 Dose: 40 mg IVP Administration Document 02/14/17 22:38 [email or web address] (Rec: 02/14/17 22:[id number]) Charges for Administration # of IVP Administrations 1 Disposition/Present on Arrival - Present on Arrival Any Indicators Present on Arrival: No History of DVT/PE: No History of Uncontrolled Diabetes: No Urinary Catheter: No History of Decub. Ulcer: No History Surgical Site Infection Following: None - Disposition Have Diagnosis and Disposition been Completed?: Yes Diagnosis: Gastritis Disposition: HOME/ ROUTINE Disposition Time: 23:30 Patient Plan: Discharge Patient Problems: Current Active Problems Problem Status Onset Gastritis Acute Condition: IMPROVED Discharge Instructions (ExitCare): Diet for Ulcers and Gastritis (ED), Esophagitis (ED), Gastritis (ED) Print Language: MAORI Additional Instructions: Please Avoid meat/dairy dairy products/large mealss/alcohol/spicy foods. Advance your diet slowly beginning with bland simple foods such as bannas/apple sacue/toast/crackers/pumpkin soups ajd other relatively clearish soups. TAKE MEDICINE PRESCRIBED THEN FOLLOW UP IN AN EXPEDITED MANNER WITH YOUR gi SPECIALIST. Referrals: Emiliano Tobias MD [Staff Provider] - Follow up with primary Dashawn Heard MD [Medical Doctor] - Follow up with primary Forms: [employer] (Ivorian)
[2017-02-14 21:53] LABS: BASO # 0.01 K/mm3 (0.0-2.0); BASO % 0.2 % (0.0-3.0); EOS # 0.1 (0.0-0.7); EOS % 2.1 % (1.5-5.0); GRAN # 2.62 (1.4-6.5); GRAN % 55.4 % (50.0-68.0); HEMATOCRIT 44.7 % (42.0-52.0); LYMPH # 1.6 (1.2-3.4); LYMPH % 34.7 % (22.0-35.0); MEAN CELL VOLUME 80.5 fl (80.0-105.0); MEAN CORPUSCULAR HEMOGLOBIN 27.2 pg (25.0-35.0); MEAN CORPUSCULAR HGB CONC 33.8 g/dl (31.0-37.0); MEAN PLATELET VOLUME 10.8 fl (7.0-11.0); MONO # 0.4 (0.1-0.6); MONO % 7.6 % (1.0-6.0); RED CELL DISTRIBUTION WIDTH 12.9 % (11.5-14.5); WHITE BLOOD COUNT 4.7 10^3/ul (4.5-11.0)
[2017-02-14 22:06] LABS: ALB/GLOB RATIO 1.8 (1.1-1.8); ALKALINE PHOSPHATASE 76 U/L (38-126); ALT/SGPT 38 U/L (7-56); AST/SGOT 23 U/L (17-59); BILIRUBIN,TOTAL 0.5 mg/dL (0.2-1.3); BLOOD UREA NITROGEN 17 mg/dL (7-21); CALCIUM 9.8 mg/dL (8.4-10.5); CARBON DIOXIDE 29 mmol/L (21-33); CHLORIDE 103 mmol/L (98-107); GFR AFRICAN-AMERICAN > 60; GLUCOSE,RANDOM 105 mg/dL (70-110); INR 1.06 (0.93-1.08); LIPASE 119 U/L (23-300); PARTIAL THROMBOPLASTIN TIME 31.4 Seconds (25.1-36.5); POTASSIUM 4.2 mmol/L (3.6-5.0); SODIUM 141 mmol/L (132-148); TOTAL PROTEIN 7.3 g/dL (5.8-8.3)
[2017-02-14 22:16] LABS: URINE BILIRUBIN NEGATIVE (NEGATIVE); URINE BLOOD NEGATIVE (NEGATIVE); URINE GLUCOSE (UA) NEGATIVE (NEGATIVE); URINE KETONE NEGATIVE (NEGATIVE); URINE LEUKOCYTE ESTERASE NEGATIVE Leu/uL (NEGATIVE); URINE PROTEIN NEGATIVE mg/dL (<30 mg/dL); URINE UROBILINOGEN 0.2 E.U./dL (<1 E.U./dL)
[2017-02-14 22:18] LABS: URINE APPEARANCE CLEAR (CLEAR); URINE COLOR YELLOW (YELLOW)
[2017-02-14 22:23] LABS: TROPONIN I < 0.01 ng/mL
[2017-02-14 23:53] VITALS: PULSE 92; RESP 18; O2SAT 99
--- NOTE | 2017-02-15 08:58 | RAD ---
HISTORY: Chest pain, palpitations COMPARISON: 02/08/2017. TECHNIQUE: Chest PA and lateral FINDINGS: LUNGS: No active pulmonary disease. PLEURA: No significant pleural effusion identified. No pneumothorax apparent. CARDIOVASCULAR: Normal. OSSEOUS STRUCTURES: No significant abnormalities. VISUALIZED UPPER ABDOMEN: Normal. OTHER FINDINGS: None. IMPRESSION: No active disease. No significant interval change compared to the prior examination(s).
--- NOTE | 2017-02-15 23:25 | CARD ---
APPROVED REPORT EKG Measurement Heart [id number] ND 140P71 [id number] <Conclusion> Normal sinus rhythm Normal ECG
== END 2017-02-14 23:54 | disposition home or self-care (01) ==
LOC: ED 20:50
DX: K29.70 Gastritis, unspecified, without bleeding (principal); K21.9 Gastro-esophageal reflux disease without esophagitis
CPT/HCPCS: 71020; 80053; 80324; 80345; 80346; 80349; 80353; 80358; 80361; 81003; 82550; 83615; 83690; 83992; 84484; 85025; 85610; 85730; 93005; 96374; 96375; 99283; C9113; J7040

== ENCOUNTER 2017-02-19 15:04 | Emergency (ER) | payer MEDICAID ==
[2017-02-19 15:18] VITALS: BMI 20.5
[2017-02-19 17:23] VITALS: PULSE 72
--- NOTE | 2017-02-19 17:24 | ED PDOC ---
Arrival/HPI - General Chief Complaint: Chest Pain Time Seen by Provider: 02/19/17 15:06 - History of Present Illness Narrative History of Present Illness (Text): 26 y/o M c PMHx scoliosis p/w chest pain x over 1 month. This is the patient's 13th visit in the last 41 days for the same complaint. Pain is sudden in onset, resolves in seconds to minutes, is L sided, nonradiating, worse with cough or movement but not brought on by those activities. The patient denies fever, cough , dyspnea, leg swelling. Over the past month, the patient has had a negative stress test, negative echo, negative enzymes, CTA with no PE or dissection. The patient has also undergone endoscopy, which revealed esophagitis. He was started on medication, which he states has made no difference. He states that his GI told him at an office visit 1 hour prior to arrival that his symptoms are not gastrointestinal in origin, which upset him and made him worry once again about the origin of this pain. The patient states he has made extensive changes in his diet and has quit smoking. He states his heating element builder also told him that he does not have any cardiac disease but he is still pending a Holter monitor which is coming in the mail to complete the work up. Past Medical History - Past History Past History: No Previous - Infectious Disease Hx of Infectious Diseases: None - Tetanus Immunization Tetanus Immunization: Unknown - Past Medical History Past Medical History: No Previous - Cardiac Hx Cardiac Disorders: No - Pulmonary Hx Respiratory Disorders: No - Neurological Hx Neurological Disorder: No - HEENT Hx HEENT Disorder: No - Renal Hx Renal Disorder: No - Endocrine/Metabolic Hx Endocrine Disorders: No - Hematological/Oncological Hx Blood Transfusions: No Hx Blood Transfusion Reaction: No - Integumentary Hx Dermatological Disorder: No - Musculoskeletal/Rheumatological Hx Falls: No - Gastrointestinal Hx Gastrointestinal Disorders: Yes Hx Gastroesophageal Reflux: Yes Hx Gastrointestinal Ulcer: Yes Other/Comment: ESOPHAGITIS - Genitourinary/Gynecological Hx Genitourinary Disorders: No - Psychiatric Hx Depression: Yes Hx Substance Use: No - Past Surgical History Past Surgical History: No Previous - Surgical History Hx Appendectomy: Yes Other/Comment: endoscopy - Anesthesia Hx Anesthesia: Yes - Suicidal Assessment Feels Threatened In Home Enviroment: No Family/Social History Family/Social History: No Known Family HX Smoking Status: Former Smoker Hx Alcohol Use: Yes (social) Amount per day: 4 Hx Substance Use: No Hx Substance Use Treatment: No Allergies/Home Meds Allergies/Adverse Reactions: Allergies No Known Allergies Allergy (Verified 02/19/17 15:28) Home Medications: Home Meds Medication Instructions Recorded Confirmed Ranitidine HCl [Zantac] 150 mg PO DAILY 02/19/17 02/19/17 Review of Systems - Physician Review All systems were reviewed & negative as marked: Yes - Review of Systems Constitutional: absent: Fevers Respiratory: absent: SOB Physical Exam - Physical Exam Narrative Physical Exam (Text): Constitutional: No acute distress. Thin male, slouches when sitting up. Head: Normocephalic. Atraumatic. Eyes: PERRL. ENT: Moist mucous membranes. Neck: Supple. Cardiovascular: Regular rate. Chest: No tenderness. No reproducible pain with pectoral muscle use. Respiratory: Clear to auscultation bilaterally. GI: Soft. Nontender. Nondistended. Back: No CVA tenderness. Musculoskeletal: No tenderness or swelling of extremities. Skin: No rash. Neurologic: Alert, no focal deficit. Vital Signs Temp Pulse Resp BP Pulse Ox 02/19/17 15:17 97.8 F 78 18 126/76 98 Medical Decision Making ED Course and Treatment: EKG NSR 70 bpm, no ST/T wave changes, normal axis. Patient has had extensive work up. I informed the patient that there is no further ED testing that can be performed that has not been performed already. Differential includes precordial catch syndrome, which I informed patient has no test or treatment. Patient will undergo Holter monitoring and will have follow up with heating element builder. I instructed the patient to return to the ED for any new symptoms that he is concerned is different than what he has been experiencing for the last month. Disposition/Present on Arrival - Present on Arrival Any Indicators Present on Arrival: No History of DVT/PE: No History of Uncontrolled Diabetes: No Urinary Catheter: No History of Decub. Ulcer: No History Surgical Site Infection Following: None - Disposition Have Diagnosis and Disposition been Completed?: Yes Diagnosis: Chest pain Disposition: HOME/ ROUTINE Disposition Time: 17:15 Patient Plan: Discharge Patient Problems: Current Active Problems Problem Status Onset Chest pain Acute Condition: STABLE Discharge Instructions (ExitCare): Chest Pain (ED) Referrals: Cecil Antoine MD [Primary Care Provider] - Follow up with primary Forms: [employer] (Gambian)
[2017-02-19 17:25] VITALS: BP 122/71; RESP 16; TEMP 98.7; O2SAT 99
--- NOTE | 2017-02-20 08:03 | CARD ---
APPROVED REPORT EKG Measurement Heart [id number] IL 136P74 [id number] <Conclusion> Normal sinus rhythm RVCD LVH by voltage, could be a normal variant
== END 2017-02-19 17:15 | disposition home or self-care (01) ==
LOC: ED 15:04
DX: R07.9 Chest pain, unspecified (principal)

== ENCOUNTER 2017-02-20 14:02 | Emergency (ER) | payer MEDICAID ==
[2017-02-20 14:03] VITALS: BMI 20.5
[2017-02-20 14:27] VITALS: BP 120/74; PULSE 74; TEMP 98
--- NOTE | 2017-02-20 15:36 | ED PDOC ---
Arrival/HPI - History of Present Illness Time/Duration: Prior to Arrival Symptom Onset: Sudden Symptom Course: Intermittent Severity Level: 10 Activities at Onset: Rest, Light Context: Home <Daryl Moffett - Last Filed: 02/20/17 15:52> <Blair Marina DO - Last Filed: 02/20/17 16:58> - General Chief Complaint: Chest Pain Time Seen by Provider: 02/20/17 14:04 - History of Present Illness Narrative History of Present Illness (Text): 02/20/17 15:38 Mr. Lopez is a 26 year old male with a past medical history significant for scoliosis and erosive esophagitis who presents to the [facility] emergency department complaining of chronic chest wall pain. Pain is sudden in onset, resolves in seconds to minutes, is located mostly on his left side, with no radiation, worse with cough or movement but not brought on by those activities. He reports that his sister is a PT and advised that he have an MRI of his chest done and he would like to have this done. Over the past month, the patient has had a negative stress test, negative echo, negative enzymes, and CTA which showed no PE or aortic dissection. The patient has also undergone endoscopy which showed erosive esophagitis. Patient will soon undergo holter monitor evaluation from his back line cook. Patient denies fever, chills, headache, changes in vision, palpitations, edema, syncope, shortness of breath, cough, wheezing, abdominal pain, N/V/D/C, rash or any numbness/tingling/weakness of any extremity. (Daryl Moffett) Past Medical History - Provider Review Nursing Documentation Reviewed: Yes - Travel History Have you recently traveled outside [place] w/in the past 3 mons?: No - Past History Past History: No Previous - Infectious Disease Hx of Infectious Diseases: None - Tetanus Immunization Tetanus Immunization: Unknown - Past Medical History Past Medical History: No Previous - Cardiac Hx Cardiac Disorders: No - Pulmonary Hx Respiratory Disorders: No - Neurological Hx Neurological Disorder: No - HEENT Hx HEENT Disorder: No - Renal Hx Renal Disorder: No - Endocrine/Metabolic Hx Endocrine Disorders: No - Hematological/Oncological Hx Blood Transfusions: No Hx Blood Transfusion Reaction: No - Integumentary Hx Dermatological Disorder: No - Musculoskeletal/Rheumatological Hx Falls: No - Gastrointestinal Hx Gastrointestinal Disorders: Yes Hx Gastroesophageal Reflux: Yes Hx Gastrointestinal Ulcer: Yes Other/Comment: ESOPHAGITIS - Genitourinary/Gynecological Hx Genitourinary Disorders: No - Psychiatric Hx Depression: Yes Hx Substance Use: No - Past Surgical History Past Surgical History: No Previous - Surgical History Hx Appendectomy: Yes Other/Comment: endoscopy - Anesthesia Hx Anesthesia: Yes - Suicidal Assessment Feels Threatened In Home Enviroment: No <ZuhairDaryl - Last Filed: 02/20/17 15:52> Family/Social History - Physician Review Nursing Documentation Reviewed: Yes Family/Social History: No Known Family HX Smoking Status: Former Smoker Hx Alcohol Use: Yes (social) Amount per day: 4 Hx Substance Use: No Hx Substance Use Treatment: No <Daryl Moffett - Last Filed: 02/20/17 15:52> Allergies/Home Meds <Daryl Moffett - Last Filed: 02/20/17 15:52> <Blair Marina DO - Last Filed: 02/20/17 16:58> Allergies/Adverse Reactions: Allergies No Known Allergies Allergy (Verified 02/19/17 15:28) Home Medications: Home Meds Medication Instructions Recorded Confirmed Ranitidine HCl [Zantac] 150 mg PO DAILY 02/19/17 02/20/17 Review of Systems - Physician Review All systems were reviewed & negative as marked: Yes - Review of Systems Constitutional: Normal. absent: Fevers, Night Sweats Eyes: Normal. absent: Vision Changes ENT: Normal. absent: Sore Throat Respiratory: Normal. absent: SOB, Cough, Sputum, Wheezing Cardiovascular: Chest Pain (As described in the HPI). absent: Normal, Palpitations, Edema, Syncope Gastrointestinal: Normal. absent: Abdominal Pain, Constipation, Diarrhea, Nausea, Vomiting Genitourinary Male: Normal. absent: Dysuria Musculoskeletal: Normal. absent: Arthralgias, Back Pain, Neck Pain, Joint Swelling, Myalgias Skin: Normal. absent: Rash Neurological: Normal. absent: Headache Endocrine: Normal Hemo/Lymphatic: Normal Psychiatric: Normal <Daryl Moffett - Last Filed: 02/20/17 15:52> Physical Exam Vital Signs Reviewed: Yes Temperature: Afebrile Blood Pressure: Normal Pulse: Regular Respiratory Rate: Normal Appearance: Positive for: Well-Appearing, Non-Toxic, Comfortable Pain Distress: None Mental Status: Positive for: Alert and Oriented X 3 - Systems Exam Head: Present: Atraumatic, Normocephalic Pupils: Present: PERRL Extroacular Muscles: Present: EOMI Conjunctiva: Present: Normal Mouth: Present: Moist Mucous Membranes Neck: Present: Normal Range of Motion, Trachea Midline. No: Meningeal Signs, MIDLINE TENDERNESS, Paraspinal Tenderness, JVD, Lymphadenopathy Respiratory/Chest: Present: Clear to Auscultation, Good Air Exchange. No: Respiratory Distress, Accessory Muscle Use, Wheezes, Decreased Breath Sounds, Rales, Retracting, Rhonchi, Tachypneic, Tender to Palpation Cardiovascular: Present: Regular Rate and Rhythm, Normal S1, S2, Peripheal Pulses Present. No: Murmurs, Irregular Rhythm, Tachycardic, Bradycardic, Rub, Gallop, Muffled Abdomen: Present: Normal Bowel Sounds. No: Tenderness, Distention, Peritoneal Signs Back: Present: Normal Inspection. No: CVA Tenderness, Midline Tenderness, Paraspinal Tenderness Upper Extremity: Present: Normal Inspection. No: Cyanosis, Edema Lower Extremity: Present: Normal Inspection. No: Edema Neurological: Present: GCS=15, CN II-XII Intact, Speech Normal Skin: Present: Warm, Dry, Normal Color. No: Rashes Psychiatric: Present: Alert, Oriented x 3, Normal Insight, Normal Concentration <Daryl Moffett - Last Filed: 02/20/17 15:52> Vital Signs Temp Pulse Resp BP Pulse Ox 02/20/17 15:47 18 99 02/20/17 14:15 98 F 74 16 120/74 100 Medical Decision Making - EKG Interpretation Interpreted by ED Physician: Yes Type: 12 lead EKG Comparison: Com.w/previous EKG <Daryl Moffett - Last Filed: 02/20/17 15:52> <Blair Marina DO - Last Filed: 02/20/17 16:58> ED Course and Treatment: 02/20/17 15:36 Impression: 26 year old male with a past medical history significant for scoliosis and erosive esophagitis who presents to the [facility] emergency department complaining of chronic chest wall pain Plan: -EKG -Reassess and disposition Prior Visits: Patient seen 14 times in previous 42 days for evaluation of chest pain (Daryl Moffett) - EKG Interpretation EKG Interpretation (Text): 02/20/17 15:48 NSR (Daryl Moffett) - PA / HEAT TREAT WORKER / Resident Statement / has reviewed & agrees with the documentation as recorded. [facility]IDA has examined the patient and agrees with the treatment plan. <Blair Marina DO - Last Filed: 02/20/17 16:58> Disposition/Present on Arrival - Present on Arrival Any Indicators Present on Arrival: No History of DVT/PE: No History of Uncontrolled Diabetes: No Urinary Catheter: No History of Decub. Ulcer: No History Surgical Site Infection Following: None - Disposition Have Diagnosis and Disposition been Completed?: Yes Disposition Time: 15:22 Patient Plan: Discharge <Daryl Moffett - Last Filed: 02/20/17 15:52> - Disposition Disposition Time: 15:00 <Blair Marina DO - Last Filed: 02/20/17 16:58> - Disposition Diagnosis: Chronic chest wall pain Disposition: HOME/ ROUTINE Condition: STABLE Discharge Instructions (ExitCare): Chest Pain (ED) Additional Instructions: Atiya John, thank you for letting us take care of you today. Your provider was Dr. Marina. You were treated for chronic chest wall pain. The emergency medical care you received today was directed at your acute symptoms. If you were prescribed any medication, please fill it and take as directed. It may take several days for your symptoms to resolve. Return to the Emergency Department if your symptoms worsen, do not improve, or if you have any other problems. Please contact your doctor or call one of the physicians/clinics you have been referred to that are listed on the Patient Visit Information form that is included in your discharge packet. Bring any paperwork you were given at discharge with you along with any medications you are taking to your follow up visit. Our treatment cannot replace ongoing medical care by a primary care provider (PCP) outside of the emergency department. Thank you for allowing the [facility] team to be part of your care today. Referrals: Cecil Antoine MD [Primary Care Provider] - Follow up with primary Forms: [employer] (Swedish)
[2017-02-20 15:48] VITALS: RESP 18; O2SAT 99
--- NOTE | 2017-02-21 09:12 | CARD ---
APPROVED REPORT EKG Measurement Heart [id number] 142P80 [id number] <Conclusion> Normal sinus rhythm RSR' or QR pattern in V1 suggests right ventricular conduction delay LVH by voltage, could be a normal variant. No change
== END 2017-02-20 15:48 | disposition home or self-care (01) ==
LOC: ED 14:02
DX: R07.89 Other chest pain (principal); G89.29 Other chronic pain; K21.9 Gastro-esophageal reflux disease without esophagitis

== ENCOUNTER 2017-02-22 15:27 | Emergency (ER) | payer MEDICAID ==
[2017-02-22 15:27] VITALS: BMI 20.5
[2017-02-22 15:46] VITALS: TEMP 98.2
[2017-02-22 17:00] LABS: BASO # 0.01 K/mm3 (0.0-2.0); BASO % 0.2 % (0.0-3.0); EOS # 0.1 (0.0-0.7); EOS % 1.1 % (1.5-5.0); GRAN # 2.5 (1.4-6.5); HEMATOCRIT 43.6 % (42.0-52.0); LYMPH # 1.5 (1.2-3.4); LYMPH % 34.9 % (22.0-35.0); MEAN CORPUSCULAR HEMOGLOBIN 27.3 pg (25.0-35.0); MEAN CORPUSCULAR HGB CONC 34.2 g/dl (31.0-37.0); MEAN PLATELET VOLUME 10.7 fl (7.0-11.0); MONO # 0.3 (0.1-0.6); MONO % 6.8 % (1.0-6.0); WHITE BLOOD COUNT 4.4 10^3/ul (4.5-11.0)
[2017-02-22 17:18] LABS: TROPONIN I < 0.01 ng/mL
[2017-02-22 17:48] LABS: ALB/GLOB RATIO 1.9 (1.1-1.8); ALKALINE PHOSPHATASE 84 U/L (38-126); ALT/SGPT 23 U/L (7-56); AST/SGOT 23 U/L (17-59); BLOOD UREA NITROGEN 15 mg/dL (7-21); CALCIUM 9.9 mg/dL (8.4-10.5); CARBON DIOXIDE 27 mmol/L (21-33); CHLORIDE 103 mmol/L (98-107); GFR AFRICAN-AMERICAN > 60; GLUCOSE,RANDOM 77 mg/dL (70-110); POTASSIUM 4.1 mmol/L (3.6-5.0); SODIUM 140 mmol/L (132-148); TOTAL PROTEIN 7.2 g/dL (5.8-8.3)
--- NOTE | 2017-02-22 17:49 | ED PDOC ---
Arrival/HPI - General Chief Complaint: Chest Pain Time Seen by Provider: 02/22/17 15:28 Historian: Patient - History of Present Illness Narrative History of Present Illness (Text): 02/22/17 17:46 A 26 year old male, who past medical history includes chest pain, presents to the emergency department for reoccurring chest pain and mild shortness of breath , fo the last several days. The patient has been seen in the emergency department multiple times for the same complaint. He states today he went to go see a employee relations manager who advised him to wear a secured entrance monitor. He notes he had a stress test and echocardiogram 1 month ago and results were completely normal. He denies any fever, nausea, dysuria, or any other complaints at this time. Time/Duration: > week (several days) Symptom Course: Unchanged, Intermittent Activities at Onset: Light Context: Home Past Medical History - Provider Review Nursing Documentation Reviewed: Yes - Past History Past History: No Previous - Infectious Disease Hx of Infectious Diseases: None - Tetanus Immunization Tetanus Immunization: Unknown - Past Medical History Past Medical History: No Previous - Cardiac Hx Cardiac Disorders: No - Pulmonary Hx Respiratory Disorders: No - Neurological Hx Neurological Disorder: No - HEENT Hx HEENT Disorder: No - Renal Hx Renal Disorder: No - Endocrine/Metabolic Hx Endocrine Disorders: No - Hematological/Oncological Hx Blood Transfusions: No Hx Blood Transfusion Reaction: No - Integumentary Hx Dermatological Disorder: No - Musculoskeletal/Rheumatological Hx Falls: No - Gastrointestinal Hx Gastrointestinal Disorders: Yes Hx Gastroesophageal Reflux: Yes Hx Gastrointestinal Ulcer: Yes Other/Comment: ESOPHAGITIS - Genitourinary/Gynecological Hx Genitourinary Disorders: No - Psychiatric Hx Depression: Yes Hx Substance Use: No - Past Surgical History Past Surgical History: No Previous - Surgical History Hx Appendectomy: Yes Other/Comment: endoscopy - Anesthesia Hx Anesthesia: Yes Hx Anesthesia Reactions: No Hx Malignant Hyperthermia: No - Suicidal Assessment Feels Threatened In Home Enviroment: No Family/Social History - Physician Review Nursing Documentation Reviewed: Yes Family/Social History: No Known Family HX Smoking Status: Former Smoker Hx Alcohol Use: Yes (social) Amount per day: 4 Hx Substance Use: No Hx Substance Use Treatment: No Allergies/Home Meds Allergies/Adverse Reactions: Allergies No Known Allergies Allergy (Verified 02/19/17 15:28) Review of Systems - Physician Review All systems were reviewed & negative as marked: Yes - Review of Systems Constitutional: absent: Fevers Cardiovascular: Chest Pain Gastrointestinal: absent: Nausea Genitourinary Male: absent: Dysuria Physical Exam Vital Signs Reviewed: Yes Vital Signs Temp Pulse Pulse Resp BP Pulse Ox 02/22/17 21:08 63 18 106/57 L 100 02/22/17 18:25 78 18 106/71 98 02/22/17 17:15 79 02/22/17 15:43 98.2 F 86 16 104/69 99 Temperature: Afebrile Blood Pressure: Normal Pulse: Regular Respiratory Rate: Normal Appearance: Positive for: Well-Appearing, Non-Toxic, Comfortable Pain Distress: None Mental Status: Positive for: Alert and Oriented X 3 - Systems Exam Head: Present: Atraumatic, Normocephalic Pupils: Present: PERRL Extroacular Muscles: Present: EOMI Conjunctiva: Present: Normal Mouth: Present: Moist Mucous Membranes Neck: Present: Normal Range of Motion Respiratory/Chest: Present: Clear to Auscultation, Good Air Exchange. No: Respiratory Distress, Accessory Muscle Use Cardiovascular: Present: Regular Rate and Rhythm, Normal S1, S2. No: Murmurs Abdomen: Present: Normal Bowel Sounds. No: Tenderness, Distention, Peritoneal Signs Back: Present: Normal Inspection Upper Extremity: Present: Normal Inspection. No: Cyanosis, Edema Lower Extremity: Present: Normal Inspection. No: Edema Neurological: Present: GCS=15, CN II-XII Intact, Speech Normal Skin: Present: Warm, Dry, Normal Color. No: Rashes Psychiatric: Present: Alert, Oriented x 3, Normal Insight, Normal Concentration Medical Decision Making ED Course and Treatment: 02/22/17 17:49 Impression: A 26 year old male with chest pain. Differential Diagnosis included but are not limited to: Plan: -- Angio CT -- EKG -- Labs -- Toradol -- Reassess and disposition Progress Notes: EKG: Ordered, reviewed, and independently interpreted the EKG. Rate : 68 BPM Rhythm : NSR Interpretation : No ST-segment elevations or depressions, no T-wave inversions, normal intervals. - Lab Interpretations Lab Results: 02/22/17 16:40 02/22/17 16:40 Lab Results 02/22/17 16:40: Sodium 140, Potassium 4.1, Chloride 103, Carbon Dioxide 27, Anion Gap 14, BUN 15, Creatinine 1.0, Est GFR ( Amer) > 60, Est GFR (Non- Af Amer) > 60, Random Glucose 77, Calcium 9.9, Total Bilirubin 1.0, AST 23, ALT 23, Alkaline Phosphatase 84, Total Protein 7.2, Albumin 4.7, Globulin 2.5, Albumin/Globulin Ratio 1.9 H 02/22/17 16:40: Magnesium 2.0, Lactate Dehydrogenase 334, Total Creatine Kinase 45, Troponin I < 0.01 02/22/17 16:40: WBC 4.4 L, RBC 5.45, Hgb 14.9, Hct 43.6, MCV 80.0, MCH 27.3, MCHC 34.2, RDW 13.0, Plt Count 202, MPV 10.7, Gran % 57.0, Lymph % (Auto) 34.9, [place] % (Auto) 6.8 H, Eos % (Auto) 1.1 L, Baso % (Auto) 0.2, Gran # 2.50, Lymph # 1.5, [place] # 0.3, Eos # 0.1, Baso # 0.01 - RAD Interpretation Radiology Orders: 02/22/17 16:24 ANGIO CHEST PE PROTOCOL [CT] Stat - Medication Orders Current Medication Orders: Discontinued Medications Ketorolac Tromethamine (Toradol) 30 mg IVP STAT STA Stop: 02/22/17 17:17 Last Admin: 02/22/17 18:15 Dose: 30 mg MAR Pain Assessment Document 02/22/17 18:15 EQ (Rec: 02/22/17 18:50 [place] [facility] [id number] Pain Reassessment Is this a pain reassessment? No Sleep Is patient sleeping during reassessment? No Presence of Pain Presence of Pain Yes IVP Administration Document 02/22/17 18:15 EQ (Rec: 02/22/17 18:50 EQ [facility] [id number]) Charges for Administration # of IVP Administrations 1 Naproxen (Anaprox Ds) 550 mg PO ONCE ONE Stop: 02/23/17 21:15 - Scribe Statement The provider has reviewed the documentation as recorded by the Erin Sampson Provider Scribe Attestation: All medical record entries made by the Scribbello were at my direction and personally dictated by me. I have reviewed the chart and agree that the record accurately reflects my personal performance of the history, physical exam, medical decision making, and the department course for this patient. I have also personally directed, reviewed, and agree with the discharge instructions and disposition. Disposition/Present on Arrival - Present on Arrival Any Indicators Present on Arrival: No History of DVT/PE: No History of Uncontrolled Diabetes: No Urinary Catheter: No History of Decub. Ulcer: No History Surgical Site Infection Following: None - Disposition Have Diagnosis and Disposition been Completed?: Yes Diagnosis: Muscular chest pain Disposition: HOME/ ROUTINE Disposition Time: 19:00 Condition: STABLE Discharge Instructions (ExitCare): Chest Pain (ED) Additional Instructions: Rest/no strenuous physical activity/take meds as prescribed/follow up with your doctor this week Prescriptions: Naproxen [Naprosyn] 500 mg PO BID PRN #14 tab PRN Reason: Pain Referrals: Cecil Antoine MD [Primary Care Provider] - Follow up with primary Forms: [employer] (Mongolian)
[2017-02-22 18:26] VITALS: RESP 18
--- NOTE | 2017-02-22 19:20 | ED PDOC ---
Physical Exam Vital Signs Temp Pulse Resp BP Pulse Ox 02/22/17 18:25 78 18 106/71 98 02/22/17 15:43 98.2 F 86 16 104/69 99 Medical Decision Making ED Course and Treatment: 02/22/17 19:00 Patient is transferred over to pa by Dr. Marina. The patient is a 26 year old male who has a reoccurring history of chest pain with multiple visits to the emergency department.Chest pain has been noted to be muscular clinically.Pt. has previously undergone extensive cardiac evaluation.He is currently pending CT Angio of chest. - Lab Interpretations Lab Results: 02/22/17 16:40 02/22/17 16:40 Lab Results 02/22/17 16:40: Sodium 140, Potassium 4.1, Chloride 103, Carbon Dioxide 27, Anion Gap 14, BUN 15, Creatinine 1.0, Est GFR ( Amer) > 60, Est GFR (Non- Af Amer) > 60, Random Glucose 77, Calcium 9.9, Total Bilirubin 1.0, AST 23, ALT 23, Alkaline Phosphatase 84, Total Protein 7.2, Albumin 4.7, Globulin 2.5, Albumin/Globulin Ratio 1.9 H 02/22/17 16:40: Magnesium 2.0, Lactate Dehydrogenase 334, Total Creatine Kinase 45, Troponin I < 0.01 02/22/17 16:40: WBC 4.4 L, RBC 5.45, Hgb 14.9, Hct 43.6, MCV 80.0, MCH 27.3, MCHC 34.2, RDW 13.0, Plt Count 202, MPV 10.7, Gran % 57.0, Lymph % (Auto) 34.9, [place] % (Auto) 6.8 H, Eos % (Auto) 1.1 L, Baso % (Auto) 0.2, Gran # 2.50, Lymph # 1.5, [place] # 0.3, Eos # 0.1, Baso # 0.01 - RAD Interpretation Narrative RAD Interpretations (Text): 02/22/17 20:28 COMPARISON: CT - ANGIO CHEST PE PROTOCOL 2017-01-15 18:54 FINDINGS: Limitations: Motion artifact - mild. Pulmonary arteries: No definite pulmonary embolism. Aorta: No aneurysm. No dissection. Lungs: No consolidation. Pleural space: No significant effusion. No pneumothorax. Heart: No cardiomegaly. No significant pericardial effusion. Bones/joints: No acute fracture. Mild scoliosis. Soft tissues: Unremarkable. Lymph nodes: No pathologically enlarged lymph nodes. IMPRESSION: 1. No definite CT evidence of pulmonary embolism. 2. Incidental/non-acute findings are described above. Radiology Orders: 02/22/17 16:24 ANGIO CHEST PE PROTOCOL [CT] Stat Hearing Examiner: Radiologist - Medication Orders Current Medication Orders: Discontinued Medications Ketorolac Tromethamine (Toradol) 30 mg IVP STAT STA Stop: 02/22/17 17:17 Last Admin: 02/22/17 18:15 Dose: 30 mg MAR Pain Assessment Document 02/22/17 18:15 EQ (Rec: 02/22/17 18:50 [place] [facility] [id number] Pain Reassessment Is this a pain reassessment? No Sleep Is patient sleeping during reassessment? No Presence of Pain Presence of Pain Yes IVP Administration Document 02/22/17 18:15 EQ (Rec: 02/22/17 18:50 EQ [facility] [id number][place] Charges for Administration # of IVP Administrations 1 - Scribe Statement The provider has reviewed the documentation as recorded by the Scribbello Sampson Provider Scribe Attestation: All medical record entries made by the Scribe were at my direction and personally dictated by me. I have reviewed the chart and agree that the record accurately reflects my personal performance of the history, physical exam, medical decision making, and the department course for this patient. I have also personally directed, reviewed, and agree with the discharge instructions and disposition. Disposition/Present on Arrival - Present on Arrival Any Indicators Present on Arrival: No History of DVT/PE: No History of Uncontrolled Diabetes: No Urinary Catheter: No History of Decub. Ulcer: No History Surgical Site Infection Following: None - Disposition Have Diagnosis and Disposition been Completed?: Yes Diagnosis: Muscular chest pain Disposition: HOME/ ROUTINE Disposition Time: 20:59 Patient Plan: Discharge Condition: STABLE Discharge Instructions (ExitCare): Chest Pain (ED) Additional Instructions: Rest/no strenuous physical activity/take meds as prescribed/follow up with your doctor this week Prescriptions: Naproxen [Naprosyn] 500 mg PO BID PRN #14 tab PRN Reason: Pain Referrals: Cecil Antoine MD [Primary Care Provider] - Follow up with primary Forms: [employer] (Khmer)
--- NOTE | 2017-02-22 20:07 | CT ---
EXAM: CT Angiography Chest With Intravenous Contrast CLINICAL HISTORY: 26 years old, male; Signs and symptoms; Angina and dyspnea; Additional info: R/O pe TECHNIQUE: Axial computed tomographic angiography images of the chest with intravenous contrast using pulmonary embolism protocol. All CT scans at this facility use one or more dose reduction techniques, viz.: automated exposure control; ma/kV adjustment per patient size (including targeted exams where dose is matched to indication; i.e. head); or iterative reconstruction technique. MIP reconstructed images were created and reviewed. Coronal and sagittal reformatted images were created and reviewed. CONTRAST: 120 mL of omni administered intravenously. COMPARISON: CT - ANGIO CHEST PE PROTOCOL 2017-01-15 18:54 FINDINGS: Limitations: Motion artifact - mild. Pulmonary arteries: No definite pulmonary embolism. Aorta: No aneurysm. No dissection. Lungs: No consolidation. Pleural space: No significant effusion. No pneumothorax. Heart: No cardiomegaly. No significant pericardial effusion. Bones/joints: No acute fracture. Mild scoliosis. Soft tissues: Unremarkable. Lymph nodes: No pathologically enlarged lymph nodes. IMPRESSION: 1. No definite CT evidence of pulmonary embolism. 2. Incidental/non-acute findings are described above.
[2017-02-22 21:08] VITALS: BP 106/57; PULSE 63; O2SAT 100
--- NOTE | 2017-02-23 10:02 | CARD ---
APPROVED REPORT EKG Measurement Heart [id number] <Conclusion> Normal sinus rhythm Rightward axis RVCD LVH by voltagem could be a normal variant No change
[2017-02-23] MEDS ORDERED: Naproxen 550 mg Tab PO ONE (21:14)
== END 2017-02-22 21:33 | disposition home or self-care (01) ==
LOC: ED 15:27
DX: R07.9 Chest pain, unspecified (principal); Z87.891 Personal history of nicotine dependence
CPT/HCPCS: 71275; 80053; 82550; 83615; 83735; 84484; 85025; 93005; 96374; 99283; J1885; Q9967

== ENCOUNTER 2017-03-02 12:53 | Emergency (ER) | payer MEDICAID, OTHER ==
[2017-03-02 12:54] VITALS: BMI 20.5
--- NOTE | 2017-03-02 13:15 | ED PDOC ---
Arrival/HPI - General Time Seen by Provider: 03/02/17 12:57 Historian: Patient - History of Present Illness Narrative History of Present Illness (Text): 03/02/17 13:12 A 26 year old male, well known to the emergency department and whose past medical history includes esophagitis, presents to the emergency department complaining of chest pain since this morning. The patient states that he took 2 Naproxen tablets without any relief. The patient states that he has seen his Glass Blower Helper regarding his symptoms. The patient denies fevers, chills, headache , dizziness, shortness of breath, dyspnea on exertion, cough, abdominal pain, nausea, vomiting, diarrhea, back pain, neck pain, urinary/bowel changes, or any other complaint. PMD: Dr. Carmine Antoine Glass Blower Helper: Dr. Singh Time/Duration: Other (This Morning) Symptom Onset: Sudden Symptom Course: Unchanged Activities at Onset: Rest Context: Home Past Medical History - Provider Review Nursing Documentation Reviewed: Yes - Past History Past History: No Previous - Infectious Disease Hx of Infectious Diseases: None - Tetanus Immunization Tetanus Immunization: Unknown - Past Medical History Past Medical History: No Previous - Cardiac Hx Cardiac Disorders: No - Pulmonary Hx Respiratory Disorders: No - Neurological Hx Neurological Disorder: No - HEENT Hx HEENT Disorder: No - Renal Hx Renal Disorder: No - Endocrine/Metabolic Hx Endocrine Disorders: No - Hematological/Oncological Hx Blood Transfusions: No Hx Blood Transfusion Reaction: No - Integumentary Hx Dermatological Disorder: No - Musculoskeletal/Rheumatological Hx Falls: No - Gastrointestinal Hx Gastrointestinal Disorders: Yes Hx Gastroesophageal Reflux: Yes Hx Gastrointestinal Ulcer: Yes Other/Comment: ESOPHAGITIS - Genitourinary/Gynecological Hx Genitourinary Disorders: No - Psychiatric Hx Depression: Yes Hx Substance Use: No - Past Surgical History Past Surgical History: No Previous - Surgical History Hx Appendectomy: Yes Other/Comment: endoscopy - Anesthesia Hx Anesthesia: Yes Hx Anesthesia Reactions: No Hx Malignant Hyperthermia: No - Suicidal Assessment Feels Threatened In Home Enviroment: No Family/Social History - Physician Review Nursing Documentation Reviewed: Yes Family/Social History: No Known Family HX Smoking Status: Former Smoker Hx Alcohol Use: Yes (social) Amount per day: 4 Hx Substance Use: No Hx Substance Use Treatment: No Allergies/Home Meds Allergies/Adverse Reactions: Allergies No Known Allergies Allergy (Verified 02/19/17 15:28) Review of Systems - Physician Review All systems were reviewed & negative as marked: Yes - Review of Systems Constitutional: absent: Fevers, Night Sweats Respiratory: absent: SOB, Cough Cardiovascular: Chest Pain. absent: DIETRICH Gastrointestinal: absent: Abdominal Pain, Stool Changes, Diarrhea, Nausea, Vomiting Genitourinary Male: absent: Urinary Output Changes Musculoskeletal: absent: Back Pain, Neck Pain Neurological: absent: Headache, Dizziness Physical Exam Vital Signs Temp Pulse Resp BP Pulse Ox 03/02/17 15:18 70 18 126/78 98 03/02/17 12:54 98.1 F 75 18 126/68 98 - Systems Exam Head: Present: Atraumatic, Normocephalic Pupils: Present: PERRL Extroacular Muscles: Present: EOMI Conjunctiva: Present: Normal Mouth: Present: Moist Mucous Membranes Neck: Present: Normal Range of Motion Respiratory/Chest: Present: Clear to Auscultation, Good Air Exchange. No: Respiratory Distress, Accessory Muscle Use Cardiovascular: Present: Regular Rate and Rhythm, Normal S1, S2. No: Murmurs Abdomen: Present: Normal Bowel Sounds. No: Tenderness, Distention, Peritoneal Signs Back: Present: Normal Inspection Upper Extremity: Present: Normal Inspection. No: Cyanosis, Edema Lower Extremity: Present: Normal Inspection. No: Edema Neurological: Present: GCS=15, CN II-XII Intact, Speech Normal Skin: Present: Warm, Dry, Normal Color. No: Rashes Psychiatric: Present: Alert, Oriented x 3, Normal Insight, Normal Concentration Medical Decision Making ED Course and Treatment: 03/02/17 13:17 Impression: A 26 year old male, well known to the emergency department, presents to the emergency department with chest pain. Plan: -- EKG -- Chest X-ray -- Toradol -- Reassess and disposition Prior Visits: Notes and results from previous visits were reviewed. Patient was last seen in the emergency department on 02/22/2017. The patient was seen in the emergency department for chest pain. The patient was discharged home. Progress Notes: EKG: Ordered, reviewed, and independently interpreted the EKG. Rate : 75 BPM Rhythm : NSR Interpretation : Early repolarization. CHEST X-RAY Dictator : Chata Kat MD Report Date : 03/02/2017 14:55:41 IMPRESSION: No focal consolidation, significant pleural effusion, or definite pneumothorax identified. 12/02/17 16:23 seen multiple times for similar, numerous ct's, w/u, endoscopy. no acute emergent testing further warranted. - Lab Interpretations I have reviewed the lab results: Yes - RAD Interpretation Radiology Orders: 03/02/17 13:11 CXR [CHEST TWO VIEWS (PA/LAT)] [RAD] Stat - EKG Interpretation Interpreted by ED Physician: Yes Type: 12 lead EKG - Medication Orders Current Medication Orders: Discontinued Medications Ketorolac Tromethamine (Toradol) 30 mg IM STAT STA Stop: 03/02/17 13:16 Last Admin: 03/02/17 13:50 Dose: Not Given Non-Admin Reason: Patient Refused - Scribe Statement The provider has reviewed the documentation as recorded by the Scribe Diane Traylor Provider Scribe Attestation: All medical record entries made by the Scribe were at my direction and personally dictated by me. I have reviewed the chart and agree that the record accurately reflects my personal performance of the history, physical exam, medical decision making, and the department course for this patient. I have also personally directed, reviewed, and agree with the discharge instructions and disposition. Disposition/Present on Arrival - Present on Arrival Any Indicators Present on Arrival: No History of DVT/PE: No History of Uncontrolled Diabetes: No Urinary Catheter: No History Surgical Site Infection Following: None - Disposition Have Diagnosis and Disposition been Completed?: Yes Diagnosis: Chest pain Disposition: HOME/ ROUTINE Disposition Time: 03:00 Condition: STABLE Discharge Instructions (ExitCare): Chest Pain (ED) Additional Instructions: follow up with your doctor. return to er with worsening symptoms or concerns. Referrals: Cecil Antoine MD [Primary Care Provider] - Follow up with primary Forms: [email or web address] (Surinamese)
[2017-03-02 13:59] VITALS: RESP 18; TEMP 98.1; O2SAT 98
--- NOTE | 2017-03-02 14:57 | RAD ---
HISTORY: cp COMPARISON: Chest x-ray performed 02/14/17, CTA chest performed 02/22/17 TECHNIQUE: Chest PA and lateral FINDINGS: LUNGS: No focal consolidation. Please note that chest x-ray has limited sensitivity for the detection of pulmonary masses. PLEURA: No significant pleural effusion identified. No definite pneumothorax . CARDIOVASCULAR: Heart size appears within normal limits. OSSEOUS STRUCTURES: Scoliosis, mildly convex to the right. VISUALIZED UPPER ABDOMEN: Unremarkable. OTHER FINDINGS: None. IMPRESSION: No focal consolidation, significant pleural effusion, or definite pneumothorax identified.
[2017-03-02 15:19] VITALS: BP 126/78; PULSE 70
--- NOTE | 2017-03-02 21:44 | CARD ---
APPROVED REPORT EKG Measurement Heart [id number] <Conclusion> Normal sinus rhythm ST elevation, consider early repolarization, pericarditis, or injury Abnormal ECG
== END 2017-03-02 15:19 | disposition home or self-care (01) ==
LOC: ED 12:53
DX: R07.9 Chest pain, unspecified (principal)

== ENCOUNTER 2017-03-13 12:25 | Emergency (ER) | payer OTHER ==
[2017-03-13 12:40] VITALS: RESP 18; TEMP 98.2; O2SAT 99
[2017-03-13 12:42] VITALS: BMI 20.9
--- NOTE | 2017-03-13 13:02 | ED PDOC ---
Arrival/HPI - General Chief Complaint: Chest Pain Time Seen by Provider: 03/13/17 12:28 Historian: Patient - History of Present Illness Narrative History of Present Illness (Text): 03/13/17 12:43 A 26 year old male whom is well-known in the ER on account of multiple visits for chest pain, whose past medical history includes esophagitis, presents to the emergency department complaining of chest pain. pt has been seen here numerous times for similar. curretnly wearing holter monitor which patient reports did not show any abnormal activity. Patient denies any fever or any other complaints at this time. PMD: Dr. Mayer 03/13/17 15:19 Past Medical History - Provider Review Nursing Documentation Reviewed: Yes - Past History Past History: No Previous - Infectious Disease Hx of Infectious Diseases: None - Tetanus Immunization Tetanus Immunization: Unknown - Past Medical History Past Medical History: No Previous - Cardiac Hx Cardiac Disorders: No - Pulmonary Hx Respiratory Disorders: No - Neurological Hx Neurological Disorder: No - HEENT Hx HEENT Disorder: No - Renal Hx Renal Disorder: No - Endocrine/Metabolic Hx Endocrine Disorders: No - Hematological/Oncological Hx Blood Transfusions: No Hx Blood Transfusion Reaction: No - Integumentary Hx Dermatological Disorder: No - Musculoskeletal/Rheumatological Hx Falls: No - Gastrointestinal Hx Gastrointestinal Disorders: Yes Hx Gastroesophageal Reflux: Yes Hx Gastrointestinal Ulcer: Yes Other/Comment: ESOPHAGITIS - Genitourinary/Gynecological Hx Genitourinary Disorders: No - Psychiatric Hx Depression: Yes Hx Substance Use: No - Past Surgical History Past Surgical History: No Previous - Surgical History Hx Appendectomy: Yes Hx Cholecystectomy: Yes Other/Comment: endoscopy - Anesthesia Hx Anesthesia: Yes Hx Anesthesia Reactions: No Hx Malignant Hyperthermia: No - Suicidal Assessment Feels Threatened In Home Enviroment: No Family/Social History - Physician Review Nursing Documentation Reviewed: Yes Family/Social History: No Known Family HX Smoking Status: Former Smoker Hx Alcohol Use: Yes (social) Amount per day: 4 Hx Substance Use: No Hx Substance Use Treatment: No Allergies/Home Meds Allergies/Adverse Reactions: Allergies No Known Allergies Allergy (Verified 03/13/17 12:46) Home Medications: Home Meds Medication Instructions Recorded Confirmed Metoprolol Succinate [Toprol XL] 25 mg PO DAILY 03/13/17 03/13/17 Review of Systems - Physician Review All systems were reviewed & negative as marked: Yes - Review of Systems Constitutional: absent: Fevers Respiratory: SOB (when bending over) Cardiovascular: Chest Pain Physical Exam Vital Signs Reviewed: Yes Vital Signs Temp Pulse Pulse Resp BP BP Pulse Ox 03/13/17 14:16 69 18 114/76 99 03/13/17 12:50 81 112/79 03/13/17 12:39 98.2 F 75 18 112/79 99 Temperature: Afebrile Blood Pressure: Normal Pulse: Regular Respiratory Rate: Normal Appearance: Positive for: Well-Appearing Pain Distress: None Mental Status: Positive for: Alert and Oriented X 3 - Systems Exam Head: Present: Atraumatic, Normocephalic Pupils: Present: PERRL Extroacular Muscles: Present: EOMI Conjunctiva: Present: Normal Mouth: Present: Moist Mucous Membranes Neck: Present: Normal Range of Motion Respiratory/Chest: Present: Clear to Auscultation, Good Air Exchange. No: Respiratory Distress, Accessory Muscle Use Cardiovascular: Present: Regular Rate and Rhythm, Normal S1, S2. No: Murmurs Abdomen: Present: Normal Bowel Sounds. No: Tenderness, Distention, Peritoneal Signs Back: Present: Normal Inspection Upper Extremity: Present: Normal Inspection. No: Cyanosis, Edema Lower Extremity: Present: Normal Inspection. No: Edema Neurological: Present: GCS=15, CN II-XII Intact, Speech Normal Skin: Present: Warm, Dry, Normal Color. No: Rashes Psychiatric: Present: Alert, Oriented x 3, Normal Insight, Normal Concentration Medical Decision Making ED Course and Treatment: 03/13/17 12:47 Impression: 26 year old male with chest pain. Physical exam is benign. Plan: -- EKG -- Chest X-ray -- Labs -- Toradol -- Urinalysis -- Reassess and disposition Prior Visits: Notes and results from previous visits were reviewed. Patient was last seen in the emergency department on 03/02/2017 for chest pain. Patient was d/c home. Progress Notes: EKG: Ordered, reviewed, and independently interpreted the EKG. Rate : 81 BPM Rhythm : NSR Interpretation : No ST-segment elevations or depressions, no T-wave inversions, normal intervals. Comparison : No previous EKG for comparison. 03/13/2017 13:15 Chest X-ray FINDINGS: LUNGS: No active pulmonary disease. PLEURA: No significant pleural effusion identified. No pneumothorax apparent. CARDIOVASCULAR: Normal. OSSEOUS STRUCTURES: Scoliosis in as before VISUALIZED UPPER ABDOMEN: Normal. OTHER FINDINGS: None. IMPRESSION: No interval acute cardiopulmonary pathology appreciated. Dictator: Kori Quigley MD 03/13/17 15:14 visit #18 for same complaint, labs non signficant advise continued outpt management. - Lab Interpretations Lab Results: 03/13/17 12:50 03/13/17 12:50 Lab Results 03/13/17 13:40: Urine Color Yellow, Urine Appearance Clear, Urine pH 6.5, Ur Specific [place] <= 1.005, Urine Protein Negative, Urine Glucose (UA) Negative, Urine Ketones Negative, Urine Blood Negative, Urine Nitrate Negative, Urine Bilirubin Negative, Urine Urobilinogen 0.2, Ur Leukocyte Esterase Negative 03/13/17 12:50: Sodium 139, Potassium 4.5, Chloride 100, Carbon Dioxide 29, Anion Gap 14, BUN 18, Creatinine 1.0, Est GFR ( Amer) > 60, Est GFR (Non- Af Amer) > 60, Random Glucose 91, Calcium 9.9, Magnesium 2.0, Total Bilirubin 0.5, AST 18, ALT 31, Alkaline Phosphatase 65, Lactate Dehydrogenase 332 L, Total Creatine Kinase 27 L, Troponin I < 0.01, Total Protein 6.9, Albumin 4.5, Globulin 2.4, Albumin/Globulin Ratio 1.8 03/13/17 12:50: PT 11.1, INR 1.01, APTT 27.5, D-Dimer, Quantitative < 200 03/13/17 12:50: WBC 5.9 D, RBC 5.55, Hgb 15.3, Hct 45.2, MCV 81.4, MCH 27.6, MCHC 33.8, RDW 13.3, Plt Count 208, MPV 10.7, Gran % 50.8, Lymph % (Auto) 36.0 H , [place] % (Auto) 10.5 H, Eos % (Auto) 2.5, Baso % (Auto) 0.2, Gran # 3.01, Lymph # 2.1, [place] # 0.6, Eos # 0.2, Baso # 0.01 I have reviewed the lab results: Yes - RAD Interpretation Radiology Orders: 03/13/17 12:47 CHEST TWO VIEWS (PA/LAT) [RAD] Stat - Medication Orders Current Medication Orders: Discontinued Medications Ketorolac Tromethamine (Toradol) 30 mg IVP STAT STA Stop: 03/13/17 12:49 Last Admin: 03/13/17 12:58 Dose: 30 mg MAR Pain Assessment Document 03/13/17 12:58 CNR (Rec: 03/13/17 12:58 CNR [id number]) Pain Reassessment Is this a pain reassessment? Yes IVP Administration Document 03/13/17 12:58 CNR (Rec: 03/13/17 12:58 CNR [id number]) Charges for Administration # of IVP Administrations 1 - Scribe Statement The provider has reviewed the documentation as recorded by the Erin Galindo Provider Scribe Attestation: All medical record entries made by the Scribe were at my direction and personally dictated by me. I have reviewed the chart and agree that the record accurately reflects my personal performance of the history, physical exam, medical decision making, and the department course for this patient. I have also personally directed, reviewed, and agree with the discharge instructions and disposition. Disposition/Present on Arrival - Present on Arrival Any Indicators Present on Arrival: No History of DVT/PE: No History of Uncontrolled Diabetes: No Urinary Catheter: No History of Decub. Ulcer: No History Surgical Site Infection Following: None - Disposition Have Diagnosis and Disposition been Completed?: Yes Diagnosis: Chest pain Disposition: HOME/ ROUTINE Disposition Time: 03:00 Condition: STABLE Discharge Instructions (ExitCare): Chest Pain (ED) Additional Instructions: follow up with specialist. return to emergency room with worsening symptoms or concerns. Referrals: Kermit Coleman MD [Staff Provider] - Follow up with primary Forms: [employer] (Macedonian)
[2017-03-13 13:11] LABS: BASO # 0.01 K/mm3 (0.0-2.0); BASO % 0.2 % (0.0-3.0); EOS # 0.2 (0.0-0.7); EOS % 2.5 % (1.5-5.0); GRAN # 3.01 (1.4-6.5); GRAN % 50.8 % (50.0-68.0); HEMATOCRIT 45.2 % (42.0-52.0); LYMPH # 2.1 (1.2-3.4); MEAN CELL VOLUME 81.4 fl (80.0-105.0); MEAN CORPUSCULAR HEMOGLOBIN 27.6 pg (25.0-35.0); MEAN CORPUSCULAR HGB CONC 33.8 g/dl (31.0-37.0); MEAN PLATELET VOLUME 10.7 fl (7.0-11.0); MONO # 0.6 (0.1-0.6); MONO % 10.5 % (1.0-6.0); RED CELL DISTRIBUTION WIDTH 13.3 % (11.5-14.5); WHITE BLOOD COUNT 5.9 10^3/ul (4.5-11.0)
--- NOTE | 2017-03-13 13:17 | RAD ---
HISTORY: cp COMPARISON: 03/02/2017 TECHNIQUE: Chest PA and lateral FINDINGS: LUNGS: No active pulmonary disease. PLEURA: No significant pleural effusion identified. No pneumothorax apparent. CARDIOVASCULAR: Normal. OSSEOUS STRUCTURES: Scoliosis in as before VISUALIZED UPPER ABDOMEN: Normal. OTHER FINDINGS: None. IMPRESSION: No interval acute cardiopulmonary pathology appreciated
[2017-03-13 13:34] LABS: TROPONIN I < 0.01 ng/mL
[2017-03-13 13:46] LABS: INR 1.01 (0.93-1.08); PARTIAL THROMBOPLASTIN TIME 27.5 Seconds (25.1-36.5)
[2017-03-13 13:55] LABS: ALB/GLOB RATIO 1.8 (1.1-1.8); ALKALINE PHOSPHATASE 65 U/L (38-126); ALT/SGPT 31 U/L (7-56); AST/SGOT 18 U/L (17-59); BILIRUBIN,TOTAL 0.5 mg/dL (0.2-1.3); BLOOD UREA NITROGEN 18 mg/dL (7-21); CALCIUM 9.9 mg/dL (8.4-10.5); CARBON DIOXIDE 29 mmol/L (21-33); CHLORIDE 100 mmol/L (98-107); GFR AFRICAN-AMERICAN > 60; GLUCOSE,RANDOM 91 mg/dL (70-110); POTASSIUM 4.5 mmol/L (3.6-5.0); SODIUM 139 mmol/L (132-148); TOTAL PROTEIN 6.9 g/dL (5.8-8.3)
[2017-03-13 13:55] LABS: PH,URINE 6.5 (4.7-8.0); URINE BILIRUBIN NEGATIVE (NEGATIVE); URINE BLOOD NEGATIVE (NEGATIVE); URINE GLUCOSE (UA) NEGATIVE (NEGATIVE); URINE KETONE NEGATIVE (NEGATIVE); URINE LEUKOCYTE ESTERASE NEGATIVE Leu/uL (NEGATIVE); URINE PROTEIN NEGATIVE mg/dL (<30 mg/dL); URINE UROBILINOGEN 0.2 E.U./dL (<1 E.U./dL)
[2017-03-13 14:02] LABS: URINE APPEARANCE CLEAR (CLEAR); URINE COLOR YELLOW (YELLOW)
[2017-03-13 14:24] LABS: D DIMER < 200 ng/mL (0-243)
[2017-03-13 15:09] VITALS: BP 112/79; PULSE 81
--- NOTE | 2017-03-13 23:16 | CARD ---
APPROVED REPORT EKG Measurement Heart [id number] <Conclusion> Normal sinus rhythm Normal ECG
== END 2017-03-13 15:08 | disposition home or self-care (01) ==
LOC: ED 12:25
DX: R07.9 Chest pain, unspecified (principal); Z87.891 Personal history of nicotine dependence
CPT/HCPCS: 71020; 80053; 81003; 82550; 83615; 83735; 84484; 85025; 85378; 85610; 85730; 93005; 96374; 99283; J1885

== ENCOUNTER 2017-03-22 13:50 | Observation (INO) | payer OTHER ==
--- NOTE | 2017-03-22 14:45 | ED PDOC ---
Arrival/HPI - General Chief Complaint: Chest Pain Time Seen by Provider: 03/22/17 14:04 Historian: Patient - History of Present Illness Narrative History of Present Illness (Text): 03/22/17 14:45 Osmin Lopez is a 27 year old male, well known to the emergency department and whose past medical history includes esophagitis, presents to the emergency department complaining of chronic chest pain from past couple months. Patient describes the pain as "horrible" and informs worsening upon exertion. Patient was recently seen in the Emergency department on 03/13/17, 03/02/17, 02/22/17 and 02/20/17 for similar symptoms. Patient appears anxious that symptoms may have worsened and informs associated "shortness of breath". Patient states pain worse when he wakes up and last throughout the day. Denies calf pain or swelling. Reports palpitations and states that "my heart feels like its going fast sometimes". Time/Duration: > month Symptom Onset: Gradual Symptom Course: Unchanged Activities at Onset: Light Context: Walking, Exertion Past Medical History - Provider Review Nursing Documentation Reviewed: Yes - Past History Past History: No Previous - Infectious Disease Hx of Infectious Diseases: None - Tetanus Immunization Tetanus Immunization: Unknown - Past Medical History Past Medical History: No Previous - Cardiac Hx Cardiac Disorders: No - Pulmonary Hx Respiratory Disorders: No - Neurological Hx Neurological Disorder: No - HEENT Hx HEENT Disorder: No - Renal Hx Renal Disorder: No - Endocrine/Metabolic Hx Endocrine Disorders: No - Hematological/Oncological Hx Blood Transfusions: No Hx Blood Transfusion Reaction: No - Integumentary Hx Dermatological Disorder: No - Musculoskeletal/Rheumatological Hx Falls: No - Gastrointestinal Hx Gastrointestinal Disorders: Yes Hx Gastroesophageal Reflux: Yes Hx Gastrointestinal Ulcer: Yes Other/Comment: ESOPHAGITIS - Genitourinary/Gynecological Hx Genitourinary Disorders: No - Psychiatric Hx Depression: Yes Hx Substance Use: No - Past Surgical History Past Surgical History: No Previous - Surgical History Hx Appendectomy: Yes Hx Cholecystectomy: Yes Other/Comment: endoscopy - Anesthesia Hx Anesthesia: Yes Hx Anesthesia Reactions: No Hx Malignant Hyperthermia: No - Suicidal Assessment Feels Threatened In Home Enviroment: No Family/Social History - Physician Review Nursing Documentation Reviewed: Yes Family/Social History: Unknown Family HX Smoking Status: Former Smoker Hx Alcohol Use: Yes (social) Amount per day: 4 Hx Substance Use: No Hx Substance Use Treatment: No Allergies/Home Meds Allergies/Adverse Reactions: Allergies No Known Allergies Allergy (Verified 03/13/17 12:46) Home Medications: Home Meds Medication Instructions Recorded Confirmed Metoprolol Succinate [Toprol XL] 25 mg PO DAILY 03/13/17 03/22/17 Review of Systems - Review of Systems Constitutional: absent: Fatigue, Fevers Eyes: absent: Vision Changes ENT: absent: Hearing Changes Respiratory: SOB. absent: Cough Cardiovascular: Chest Pain, Palpitations. absent: Edema, Calf Pain, DIETRICH Gastrointestinal: Appetite Changes. absent: Abdominal Pain, Nausea, Vomiting, Hematochezia Genitourinary Male: absent: Dysuria Musculoskeletal: absent: Back Pain Skin: absent: Rash Neurological: absent: Headache, Dizziness, Focal Weakness Endocrine: absent: Polyuria Hemo/Lymphatic: absent: Easy Bleeding Psychiatric: Anxiety. absent: Depression, Suicidal Ideation Physical Exam Vital Signs Reviewed: Yes Vital Signs Temp Pulse Resp BP Pulse Ox 03/22/17 16:14 98 F 74 19 112/57 L 99 03/22/17 13:59 82 16 117/59 L 99 03/22/17 13:50 97.8 F 82 16 117/59 L 99 Temperature: Afebrile Appearance: Positive for: Well-Appearing, Non-Toxic Pain Distress: Mild Mental Status: Positive for: Alert and Oriented X 3 - Systems Exam Head: Present: Atraumatic, Normocephalic Pupils: Present: PERRL Extroacular Muscles: Present: EOMI Mouth: Present: Moist Mucous Membranes Pharnyx: No: ERYTHEMA Nose (Internal): Present: Normal Inspection, No Active Bleeding Neck: Present: Normal Range of Motion, Other (no thyromegaly). No: Meningeal Signs, MIDLINE TENDERNESS Respiratory/Chest: Present: Clear to Auscultation. No: Respiratory Distress Cardiovascular: Present: Regular Rate and Rhythm, Murmurs Abdomen: Present: Normal Bowel Sounds. No: Tenderness, Peritoneal Signs Back: No: CVA Tenderness, Midline Tenderness Upper Extremity: Present: Normal ROM. No: Cyanosis, Edema Lower Extremity: Present: NORMAL PULSES, Neurovascularly Intact. No: CALF TENDERNESS Neurological: Present: Motor Func Grossly Intact, Normal Sensory Function Skin: Present: Warm Psychiatric: Present: Alert, Normal Insight, Normal Concentration, Anxious. No : Suicidal Ideation, Homicidal Ideation Medical Decision Making ED Course and Treatment: Patient's past visits reviewed. I reviewed past cardiac testing, recent CT chest , recent GI and cardiology consultations. Patient denies pleuritic pain. Not hypoxia. No calf pain or swelling. Monitor present. EKG unremarkable. Suspect atypical chest pain, with hx of esophagitis. Will check labs, monitor, reassess. 03/22/17 18:08 Patient on monitor with occasional premature beat, not sustained. He is wearing holter monitor place by personnel records clerk Dr. Espinoza. No PE noted on recent ct chest. He is not hypoxic. He is taking beta gerson. Will admit to telemetry observation to monitor for symptomatic arrhythmia given persistent symptoms and failure of outpatient treatment. - Lab Interpretations Lab Results: 03/22/17 15:00 03/22/17 15:00 Lab Results 03/22/17 16:33: Urine Color Yellow, Urine Appearance Clear, Urine pH 8.0, Ur Specific [place] 1.010, Urine Protein Negative, Urine Glucose (UA) Negative, Urine Ketones Negative, Urine Blood Negative, Urine Nitrate Negative, Urine Bilirubin Negative, Urine Urobilinogen 0.2, Ur Leukocyte Esterase Negative 03/22/17 15:00: Sodium 141, Potassium 4.2, Chloride 100, Carbon Dioxide 30, Anion Gap 16, BUN 18, Creatinine 1.0, Est GFR ( Amer) > 60, Est GFR (Non- Af Amer) > 60, Random Glucose 94, Calcium 10.0, Total Bilirubin 0.4, AST 22, ALT 38, Alkaline Phosphatase 64, Lactate Dehydrogenase 320 L, Total Creatine Kinase 37, Troponin I < 0.01, Total Protein 7.0, Albumin 4.4, Globulin 2.5, Albumin/Globulin Ratio 1.7 03/22/17 15:00: WBC 4.5 D, RBC 5.42, Hgb 14.8, Hct 44.0, MCV 81.2, MCH 27.3, MCHC 33.6, RDW 13.1, Plt Count 174, MPV 11.2 H, Gran % 55.0, Lymph % (Auto) 34.7 , [place] % (Auto) 7.9 H, Eos % (Auto) 2.2, Baso % (Auto) 0.2, Gran # 2.49, Lymph # 1.6, [place] # 0.4, Eos # 0.1, Baso # 0.01 - EKG Interpretation EKG Interpretation (Text): EKG at 13:55 normal sinus rhythm rate of [address] elevations Interpreted by ED Physician: Yes Type: 12 lead EKG Comparison: Similar to previous EKG - Medication Orders Current Medication Orders: Discontinued Medications Ketorolac Tromethamine (Toradol) 30 mg IVP STAT STA Stop: 03/22/17 15:26 Last Admin: 03/22/17 15:53 Dose: 30 mg MAR Pain Assessment Document 03/22/17 15:53 LA (Rec: 03/22/17 15:53 [id number] Pain Reassessment Is this a pain reassessment? Yes Sleep Is patient sleeping during reassessment? No Presence of Pain Presence of Pain Yes Pain Scale Used Pain Scale Used Numeric Location Pain Location Body Site Chest Description Description Intermittent Intensity of Pain at present 7 IVP Administration Document 03/22/17 15:53 LA (Rec: 03/22/17 15:53 LA [id number]) Charges for Administration # of IVP Administrations 1 Pantoprazole Sodium (Protonix Inj) 40 mg IVP ONCE STA Stop: 03/22/17 15:26 Last Admin: 03/22/17 15:46 Dose: 40 mg IVP Administration Document 03/22/17 15:46 LA (Rec: 03/22/17 15:53 LA [id number]) Charges for Administration # of IVP Administrations 1 - Scribe Statement The provider has reviewed the documentation as recorded by the Scribe Nadine Guzman. All medical record entries made by the Scribe were at my direction and personally dictated by me. I have reviewed the chart and agree that the record accurately reflects my personal performance of the history, physical exam, medical decision making, and the department course for this patient. I have also personally directed, reviewed, and agree with the discharge instructions and disposition. Disposition/Present on Arrival - Present on Arrival Any Indicators Present on Arrival: No History of DVT/PE: No History of Uncontrolled Diabetes: No Urinary Catheter: No History of Decub. Ulcer: No History Surgical Site Infection Following: None - Disposition Have Diagnosis and Disposition been Completed?: Yes Diagnosis: Chest pain, Palpitations Disposition: HOSPITALIZED Disposition Time: 18:09 Patient Plan: Admission, Observation, Telemetry Condition: FAIR Discharge Instructions (ExitCare): Chest Pain (ED) Referrals: Shannon Mayer MD [Primary Care Provider] - Follow up with primary Forms: [employer] ([place])
[2017-03-22 15:24] LABS: BASO # 0.01 K/mm3 (0.0-2.0); BASO % 0.2 % (0.0-3.0); EOS # 0.1 (0.0-0.7); EOS % 2.2 % (1.5-5.0); GRAN # 2.49 (1.4-6.5); LYMPH # 1.6 (1.2-3.4); LYMPH % 34.7 % (22.0-35.0); MEAN CELL VOLUME 81.2 fl (80.0-105.0); MEAN CORPUSCULAR HEMOGLOBIN 27.3 pg (25.0-35.0); MEAN CORPUSCULAR HGB CONC 33.6 g/dl (31.0-37.0); MEAN PLATELET VOLUME 11.2 fl (7.0-11.0); MONO # 0.4 (0.1-0.6); MONO % 7.9 % (1.0-6.0); RED CELL DISTRIBUTION WIDTH 13.1 % (11.5-14.5); WHITE BLOOD COUNT 4.5 10^3/ul (4.5-11.0)
[2017-03-22 15:28] LABS: TROPONIN I < 0.01 ng/mL
[2017-03-22 15:38] LABS: ALB/GLOB RATIO 1.7 (1.1-1.8); ALKALINE PHOSPHATASE 64 U/L (38-126); ALT/SGPT 38 U/L (7-56); AST/SGOT 22 U/L (17-59); BILIRUBIN,TOTAL 0.4 mg/dL (0.2-1.3); BLOOD UREA NITROGEN 18 mg/dL (7-21); CARBON DIOXIDE 30 mmol/L (21-33); CHLORIDE 100 mmol/L (98-107); GFR AFRICAN-AMERICAN > 60; GLUCOSE,RANDOM 94 mg/dL (70-110); POTASSIUM 4.2 mmol/L (3.6-5.0); SODIUM 141 mmol/L (132-148)
[2017-03-22 16:39] LABS: URINE BILIRUBIN NEGATIVE (NEGATIVE); URINE BLOOD NEGATIVE (NEGATIVE); URINE GLUCOSE (UA) NEGATIVE (NEGATIVE); URINE KETONE NEGATIVE (NEGATIVE); URINE LEUKOCYTE ESTERASE NEGATIVE Leu/uL (NEGATIVE); URINE PROTEIN NEGATIVE mg/dL (<30 mg/dL); URINE UROBILINOGEN 0.2 E.U./dL (<1 E.U./dL)
[2017-03-22 16:41] LABS: URINE APPEARANCE CLEAR (CLEAR); URINE COLOR YELLOW (YELLOW)
[2017-03-22 21:07] VITALS: BMI 19.5
--- NOTE | 2017-03-23 03:37 | HP ---
HISTORY OF PRESENT ILLNESS: The patient is 27 years old, known to me from office practice. He has been seen in office multiple times with complaints of chest pain. He was seen by Dr. Eastman. His endoscopy was found to be unremarkable except minimal esophagitis. He was seen by Dr. Hernandez in [place], had Holter placed, still in place, intermittently had been having chest pain. He was given steroids. He has been complaining of palpitations. He was given metoprolol lately. He has been on Xanax. The patient was just seen day before yesterday. He was told that he has significant scoliosis, that might be reason for his left-sided chest pain. ALLERGIES: HE IS NOT ALLERGIC TO ANY MEDICATION. MEDICATIONS AT HOME: He takes metoprolol 25 daily, Xanax as needed, and Percocet as needed. SOCIAL HISTORY: Denies smoking or drinking. He used to be smoker in the past, but quit. Socially, drinks. PHYSICAL EXAMINATION: GENERAL: He is awake, alert, oriented and communicative. VITAL SIGNS: He is afebrile, pulse 74, respirations 19, blood pressure 112/57. LUNGS: Bilateral good airflow. No rhonchi or crackle. HEART: S1 and S2 audible. No murmur. ABDOMEN: Soft and nontender. No rebound. No guarding. NEUROLOGIC: He is awake, alert, oriented, and communicative. He has a prominent left lower chest. He has levoscoliosis. LABORATORY DATA: WBC 4.5, hemoglobin 14, hematocrit 44, and platelets 174. Chemistry: Sodium 141, potassium 4.2, chloride 100, CO2 of 30, BUN 18, creatinine 1.0, and blood sugar of 94. LFTs are within normal limits. Urinalysis is unremarkable. ASSESSMENT: 1. Probably atypical chest pain. 2. Kyphoscoliosis. 3. Anxiety disorder. PLAN: We will start the patient on Protonix, Percocet as needed, and start him on metoprolol and get Cardiology evaluation by Dr. Rich and we will reevaluate the patient in a.m. Shannon Mayer MD [facility] # [id number]
[2017-03-23] MEDS: Oxycodone/Acetaminophen 5/325 mg Tab PO PRN ×2 (04:07→11:23)
[2017-03-23] MEDS: Pantoprazole 40 mg EC Tab PO SCH (05:52)
[2017-03-23] MEDS: Metoprolol Succinate 25 mg XL Tab PO SCH (08:50)
--- NOTE | 2017-03-23 09:21 | CARD ---
APPROVED REPORT EKG Measurement Heart [id number] SC [id number] [id number] <Conclusion> Normal sinus rhythm Voltage criteria for left ventricular hypertrophy, may be normal variant No change
--- NOTE | 2017-03-23 13:47 | RAD ---
HISTORY: chronic chest pain; kyphosis COMPARISON: 03/13/2017 chest two views FINDINGS: BONES: Spell dextroscoliosis, mild. No appreciable degenerative change. DISC SPACES: Normal. SOFT TISSUES: Normal. OTHER FINDINGS: None. IMPRESSION: No significant or acute findings to account for/ related to the clinical presentation.
[2017-03-23 19:36] VITALS: O2SAT 100
--- NOTE | 2017-03-23 21:12 | CARD ---
APPROVED REPORT EXAM: Two-dimensional and M-mode echocardiogram with Doppler and color Doppler. INDICATION 2D DIMENSIONS IVSd0.9 (0.7-1.1cm)LVDd4.4 (3.9-5.9cm) PWd0.9 (0.7-1.1cm)LVDs2.7 (2.5-4.0cm) FS (%) 39.2 %LVEF (%)69.8 (>50%) M-Mode DIMENSIONS Left Atrium (MM)3.20 (2.5-4.0cm)Aortic Root2.90 (2.2-3.7cm) Aortic Cusp Exc.2.00 (1.5-2.0cm) Aortic Valve AoV Peak Eqxpypql103.0cm/[place] Peak GR.8mmHg Mitral Valve MV E Jfuiubmz85.9cm/sMV A Husysupw10.3cm/sE/A ratio1.6 TDI Lateral E' Peak V19.00cm/sMedial E' Peak V11.20cm/sE/Lateral E'4.3 E/Medial E'7.3 Tricuspid Valve TR Peak Avpukfzh563uk/sRAP [id number] Peak Gr.23mmHg [id number] LEFT VENTRICLE The left ventricle is normal size. There is normal left ventricular wall thickness. The left ventricular function is normal. The left ventricular ejection fraction is within the normal range. There is normal LV segmental wall motion. The left ventricular diastolic function is normal. RIGHT VENTRICLE The right ventricle is normal size. There is normal right ventricular wall thickness. The right ventricular systolic function is normal. ATRIA The left atrium size is normal. The right atrium size is normal. AORTIC VALVE The aortic valve is normal in structure. No aortic regurgitation is present. There is no aortic valvular stenosis. MITRAL VALVE The mitral valve is normal in structure. There is no mitral valve regurgitation noted. TRICUSPID VALVE The tricuspid valve is normal in structure. There is no tricuspid valve regurgitation noted. GREAT VESSELS The aortic root is normal in size. The IVC is normal in size and collapses >50% with inspiration. PERICARDIAL EFFUSION There is no pericardial effusion. <Conclusion> The left ventricle is normal size. There is normal left ventricular wall thickness. The left ventricular function is normal. The left ventricular ejection fraction is within the normal range. There is normal LV segmental wall motion. The left ventricular diastolic function is normal.
[2017-03-23] MEDS ORDERED: Levalbuterol 0.63 MG/3 ML Inhal Soln UD IH PRN (21:18)
--- NOTE | 2017-03-23 23:58 | CON ---
DATE: REASON FOR CONSULTATION: Chest discomfort. HISTORY OF PRESENT ILLNESS: The patient is a 27-year-old male who is being followed by Dr. Espinoza, airport maintenance laborer in [place] for palpitation and heart rate around 130 at times and external event monitor placement. The patient presented with chest pain that he could not describe the quality of the chest pain, but denies any radiation and denies any exertional nature to the chest pain. The patient denies any palpitations at that time. 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 The patient stated that someone told him that he needs cardiac catheterization, but it was not any of the tax compliance representative that he follows with in the [facility] in [place]. SOCIAL HISTORY: The patient quit smoking. 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 MEDICATIONS: Percocet one tablet q. 4 hours p.r.n., Protonix 40 mg once a day, and Toprol XL 25 mg once a day. REVIEW OF SYSTEMS: The patient was not clear about history of anxiety or depression; however, his girlfriend at the bedside tried to point to that and that made him very angry. PHYSICAL EXAMINATION: GENERAL: The patient is a young middle-aged male who does not appeared to be in any distress. VITAL SIGNS: Blood pressure 109/66, heart rate 58, temperature 97.9, and respirations 18. HEENT: Normocephalic. NECK: No JVD. CHEST: Clear. HEART: S1 and S2 regular. ABDOMEN: Soft. EXTREMITIES: No edema. LABORATORY DATA: Hemoglobin, hematocrit, white count and platelet counts are within normal limits. The SMA-7 is within normal limits. One set of troponin is negative. EKG revealed sinus rhythm with voltage criteria for LVH, may be normal gradient. ASSESSMENT: 1. Atypical chest pain. 2. Rule out an anxiety disorder. 3. History of tachycardia and has an external event monitor. RECOMMENDATIONS: Continue current Toprol XL 25 mg once a day. Psychiatry consultation has been requested. Obtain an echocardiogram, serum D-dimer and urine for drug screen. Repeat one more EKG and one more set of troponin. Fly Lagunas MD
[2017-03-24] MEDS: Pantoprazole 40 mg EC Tab PO SCH (05:31)
[2017-03-24] MEDS: Metoprolol Succinate 25 mg XL Tab PO SCH (08:25)
--- NOTE | 2017-03-24 11:31 | CON ---
DATE: 03/24/2017 ORTHOPEDIC CONSULTATION LOCATION: Room number 373, bed 1. HISTORY OF PRESENT ILLNESS: The patient came into the hospital on 03/22/2017 with chest pain. They called orthopedic consultation when they found he has mild scoliosis of the dorsal spine under 5 degrees, which is compatible with normal thing because he is well compensated. He does have tenderness to costochondral region of his left side of sternum and mild increase with deep breathing. I told him this is simple problem of costochondritis because he has a very thin field and not much body fat. I told him he should do breathing exercise with his spirometer and consider doing swimming exercise to build up his chest muscles and costochondritis will subside and he could take mild anti-inflammatories like Motrin or Aleve or even Tylenol for that matter, but he does not need any surgery. I encouraged him to stay active and do the breathing exercises and encourage him to go swimming to build up his chest muscles. 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 PLAN: He is to do deep breathing exercises and swimming. Marcus Perry DO
[2017-03-24] MEDS ORDERED: Lidocaine 5% Patch TD SCH (12:15)
--- NOTE | 2017-03-24 13:15 | CP.PCM.PCO ---
Addendum Addendum: 03/24/17 13:13 this play writer attempted to evaluate pt but pt went to the XR as per Rn report pt is not agitated, not psychotic, did not express thoughts of harming self or others compliant with treatment plan if pt will be in the hospital tomorrow, will evaluate him at am if pt will be d/c, this play writer left info for outpatient providers for psychiatric follow up ([facility], [facility], Dr.Paul Rosales) will f/u
[2017-03-24 13:49] VITALS: BP 129/84; PULSE 70; RESP 18; TEMP 98.1
--- NOTE | 2017-03-24 14:43 | PN ---
DATE: SUBJECTIVE: The patient denies any chest pain or shortness of breath. He denies any palpitation. He is normal sinus rhythm on a monitor. OBJECTIVE: VITAL SIGNS: Blood pressure 100/62, heart rate 73, temperature 97.4, and respirations 20. HEENT: Normocephalic. CHEST: Clear. HEART: S1 and S2. Regular. EXTREMITIES: No edema. ASSESSMENT: 1. Atypical chest pain, one troponin is negative. 2. History of palpitation. 3. Underlying anxiety disorder. RECOMMENDATIONS: I did reviewed the echo cardiac study yesterday, which revealed normal ventricular size and systolic function, as well as, normal diastolic function. Continue current Toprol XL. The patient can follow with his primary delivery tech and community liaison [facility] in [place] as an outpatient. Fly Lagunas MD
--- NOTE | 2017-03-25 02:07 | DS ---
HISTORY OF PRESENT ILLNESS: The patient is a 27-year-old seen and examined. States he feels better. Chest pain is almost gone. Still feels anxious will come back. He was evaluated by nurse practitioner for Dr. Robert Casiano, who thinks this is musculoskeletal pain. She recommended for Lidoderm patch, that is placed. No nausea, vomiting. No diarrhea. PHYSICAL EXAMINATION: VITAL SIGNS: He is afebrile. Pulse 70, respirations 18, blood pressure 129/84. LUNGS: Bilateral fair airflow. No rhonchi or crackle. HEART: S1 and S2 audible. No murmur. ABDOMEN: Soft, nontender. No rebound, no guarding. NEUROLOGIC: The patient is awake, alert, and oriented, able to communicate, ambulatory. ASSESSMENT: 1. Noncardiac chest pain. 2. Palpitation. 3. Questionable panic disorder. PLAN: The patient is going to be discharged home today. He is advised to continue metoprolol, Xanax as needed, and he will follow up with Dr. Robert Casiano as needed as an outpatient. He was told that the patient has levoscoliosis, this could be muscular pain because of disk deformity; however, he will follow up with Dr. Robert Casiano. Shannon Mayer MD
--- NOTE | 2017-03-25 09:21 | CP.PCM.PCO ---
Physician Communication Note - Physician Communication Note Physician Communication Note: Pt was discharged
--- NOTE | 2017-03-26 09:33 | PN ---
DATE: 03/23/2017 SUBJECTIVE: The patient is a 27-year-old, seen and examined, still having chest pain, he stated 10/08, get anxious at time. PHYSICAL EXAMINATION VITAL SIGNS: He is afebrile, pulse 58, respirations 18 and blood pressure 109/66. LUNGS: Bilateral fair airflow. No rhonchi or crackle. HEART: S1 and S2 audible. ABDOMEN: Soft and nontender. No rebound. No guarding. NEUROLOGIC: The patient is awake, alert, oriented, communicative and ambulatory. LABORATORY DATA: He had thoracic spine x-ray done that shows no significant acute finding to account for related clinical presentation with dextrose scoliosis mild, no appreciable degenerative changes. ASSESSMENT: 1. Atypical chest pain. 2. Anxiety disorder. PLAN: I start him on Mobic. Dr. Hurtado to evaluate the patient for paranoia versus anxiety disorder and Dr. Perry will see if this chest pain is secondary to musculoskeletal and he might need trigger point injection. Shannon Mayer MD
== END 2017-03-24 13:45 | disposition home or self-care (01) ==
LOC: ED 13:50 → ERH 17:54 → 3RSO 19:11
PROVIDERS: ADMIT Internal Medicine; ATTEND Internal Medicine
DX: M94.0 Chondrocostal junction syndrome [Tietze] (principal); R07.89 Other chest pain; G89.29 Other chronic pain; R00.2 Palpitations; K20.9 Esophagitis, unspecified; M41.9 Scoliosis, unspecified; F41.9 Anxiety disorder, unspecified; K21.9 Gastro-esophageal reflux disease without esophagitis; Z90.49 Acquired absence of other specified parts of digestive tract; Z87.891 Personal history of nicotine dependence
CPT/HCPCS: 36415; 72070; 80053; 80324; 80345; 80346; 80349; 80353; 80358; 80361; 81003; 82550; 83615; 83992; 84443; 84484; 85025; 85378; 93005; 93306; 94640; 96374; 96375; 99285; C9113; G0378; J1885

== ENCOUNTER 2017-03-25 15:19 | Emergency (ER) | payer OTHER ==
[2017-03-25 15:19] VITALS: BMI 19.5
[2017-03-25 15:25] VITALS: BP 116/80; PULSE 68; RESP 18; TEMP 98.4; O2SAT 100
--- NOTE | 2017-03-25 15:48 | ED PDOC ---
Arrival/HPI - General Chief Complaint: Chest Pain Time Seen by Provider: 03/25/17 15:30 Historian: Patient - History of Present Illness Narrative History of Present Illness (Text): 03/25/17 15:56 pt p/w + worsening left chest pain today, however has had left chest pain for many weeks, and has been seen in the ED/hospitals as well as seen by PCP on multiple occasions; pt states today while going to attend a [employer] dinner, started to experience left sided chest pain, with pain radiating up to his left neck/back, and across his right chest (which is different than his usual chest pain); pt also felt sob, no dizziness/lightheadedness, + slightly nauseous, no vomiting, no sweating, no fever/chills, no palpitations, no abd pain, no numbness/tingling, no urinary/bowel changes, no fall/trauma/sick contact, no travel; pt states his chest pain is currently at 7/10; pt states he is not feeling well pt denied other complaints pt is here for further eval pt states no SI/HI, no hallucinations 03/25/17 18:38 Time/Duration: Prior to Arrival Symptom Onset: Sudden Quality: Cramping Severity Level: 7 Activities at Onset: Rest Context: Sitting Past Medical History - Provider Review Nursing Documentation Reviewed: Yes - Travel History Have you recently traveled outside [place] w/in the past 3 mons?: No - Past History Past History: No Previous - Infectious Disease Hx of Infectious Diseases: None - Tetanus Immunization Tetanus Immunization: Unknown - Past Medical History Past Medical History: No Previous - Cardiac Hx Cardiac Disorders: No - Pulmonary Hx Respiratory Disorders: No - Neurological Hx Neurological Disorder: No - HEENT Hx HEENT Disorder: No - Renal Hx Renal Disorder: No - Endocrine/Metabolic Hx Endocrine Disorders: No - Hematological/Oncological Hx Cancer: No - Integumentary Hx Dermatological Disorder: No - Musculoskeletal/Rheumatological Hx Falls: No - Gastrointestinal Hx Gastrointestinal Disorders: Yes Hx Gastroesophageal Reflux: Yes Other/Comment: ESOPHAGITIS - Genitourinary/Gynecological Hx Genitourinary Disorders: No - Psychiatric Hx Psychophysiologic Disorder: Yes Hx Anxiety: Yes Hx Substance Use: No - Past Surgical History Past Surgical History: No Previous - Surgical History Hx Appendectomy: Yes Other/Comment: endoscopy - Anesthesia Hx Anesthesia: Yes Hx Anesthesia Reactions: No Hx Malignant Hyperthermia: No - Suicidal Assessment Feels Threatened In Home Enviroment: No Family/Social History - Physician Review Nursing Documentation Reviewed: Yes Family/Social History: No Known Family HX (grandmother with hx of thyroid d/o; mother with MVP; no family member with early MA) Smoking Status: Never Smoked Hx Alcohol Use: No Amount per day: 4 Hx Substance Use: No Hx Substance Use Treatment: No Allergies/Home Meds Allergies/Adverse Reactions: Allergies No Known Allergies Allergy (Verified 03/25/17 15:29) Home Medications: Home Meds Medication Instructions Recorded Confirmed Metoprolol Succinate [Toprol XL] 25 mg PO DAILY 03/13/17 03/25/17 Review of Systems - Review of Systems Constitutional: Normal Eyes: Normal ENT: Normal Respiratory: SOB Cardiovascular: Chest Pain Gastrointestinal: Nausea. absent: Abdominal Pain, Diarrhea, Vomiting Genitourinary Male: Normal Musculoskeletal: Normal Skin: Normal Neurological: Normal. absent: Headache, Dizziness Endocrine: Normal Hemo/Lymphatic: Normal Psychiatric: Normal Physical Exam Vital Signs Reviewed: Yes Vital Signs Temp Pulse Pulse Resp BP Pulse Ox 03/25/17 16:00 68 03/25/17 15:25 98.4 F 68 18 116/80 100 Temperature: Afebrile Blood Pressure: Normal Pulse: Regular Respiratory Rate: Normal Appearance: Positive for: Well-Appearing, Non-Toxic, Comfortable Pain Distress: None Mental Status: Positive for: Alert and Oriented X 3 - Systems Exam Head: Present: Atraumatic, Normocephalic Pupils: Present: PERRL, Other (no nystagmus, no photophobia, sclera anicteric) Extroacular Muscles: Present: EOMI Conjunctiva: Present: Normal Ears: Present: Normal, NORMAL TM Mouth: Present: Moist Mucous Membranes, Normal Teeth, Other (WNL) Pharnyx: Present: Normal Nose (External): Present: Atraumatic Neck: Present: Normal Range of Motion, Trachea Midline, Other (no crepitus, no gross deformities noted). No: MIDLINE TENDERNESS Respiratory/Chest: Present: Clear to Auscultation, Good Air Exchange. No: Respiratory Distress, Accessory Muscle Use Cardiovascular: Present: Regular Rate and Rhythm, Normal S1, S2, Other (no crepitus, no lesions/rashes noted). No: Murmurs Abdomen: Present: Normal Bowel Sounds, Other (well nourished male, no focal tenderness). No: Tenderness, Distention, Peritoneal Signs Back: Present: Normal Inspection. No: CVA Tenderness, Midline Tenderness Upper Extremity: Present: Normal Inspection, Normal ROM, NORMAL PULSES, Neurovascularly Intact, Capillary Refill < 2s. No: Cyanosis, Edema Lower Extremity: Present: Normal Inspection, NORMAL PULSES, Neurovascularly Intact, Capillary Refill < 2 s. No: Edema Neurological: Present: GCS=15, CN II-XII Intact, Speech Normal Skin: Present: Warm, Dry, Normal Color. No: Rashes Psychiatric: Present: Alert, Oriented x 3, Normal Insight, Normal Concentration Medical Decision Making ED Course and Treatment: 03/25/17 17:26 Impression: atypical chest pain with radiation of pain to the left back, ? psych i have consider all the differential diagnosis regarding pt's chief medical complaints/clinical findings, including but are not limited to: Differential Diagnosis included but are not limited to: unlikely PE/ACS, ? infectious, ? carditis vs myocarditis, atypical chest pain likely, will continue to monitor A/P: chest pain - xray - ekg - labs - observe - supportive care 03/25/17 17:46 pt felt much improved pt states no more chest pain pt is comfortable pt is made aware of his medical results pt is encouraged fluids pt will f/u as directed pt will be discharged home paged Dr Mayer 03/25/17 18:49 Dr Mayer contacted, made aware, agrees with ED mgt/txt/dx; will continued to f /u with patient as outpt Re-evaluation Time: 17:47 Reassessment Condition: Improved - Lab Interpretations Lab Results: 03/25/17 16:05 03/25/17 16:05 Lab Results 03/25/17 16:05: Sodium 142, Potassium 4.4, Chloride 103, Carbon Dioxide 27, Anion Gap 17, BUN 17, Creatinine 0.9, Est GFR ( Amer) > 60, Est GFR (Non- Af Amer) > 60, Random Glucose 87, Calcium 10.0, Magnesium 2.0, Total Bilirubin 0.5, AST 23, ALT 42, Alkaline Phosphatase 66, Lactate Dehydrogenase 362, Total Creatine Kinase 46, Troponin I < 0.01, Total Protein 7.4, Albumin 4.6, Globulin 2.8, Albumin/Globulin Ratio 1.7, Lipase 132 03/25/17 16:05: D-Dimer, Quantitative < 200 03/25/17 16:05: WBC 5.1, RBC 5.28, Hgb 14.4, Hct 42.8, MCV 81.1, MCH 27.3, MCHC 33.6, RDW 12.8, Plt Count 181, MPV 10.5, Gran % 68.0, Lymph % (Auto) 22.4, [place] % (Auto) 8.0 H, Eos % (Auto) 1.6, Baso % (Auto) 0.0, Gran # 3.47, Lymph # 1.1 L , [place] # 0.4, Eos # 0.1, Baso # 0.00 03/25/17 15:55: Urine Color Yellow, Urine Appearance Clear, Urine pH 7.5, Ur Specific [place] <= 1.005, Urine Protein Negative, Urine Glucose (UA) Negative, Urine Ketones Negative, Urine Blood Negative, Urine Nitrate Negative, Urine Bilirubin Negative, Urine Urobilinogen 0.2, Ur Leukocyte Esterase Negative WNL I have reviewed the lab results: Yes (WNL) Interpretation: All labs normal - RAD Interpretation Radiology Orders: 03/25/17 15:52 CHEST TWO VIEWS (PA/LAT) [RAD] Stat Chest PA and lateral FINDINGS: LUNGS: No active pulmonary disease. PLEURA: No significant pleural effusion identified. No pneumothorax apparent. CARDIOVASCULAR: Normal. OSSEOUS STRUCTURES: No significant abnormalities. VISUALIZED UPPER ABDOMEN: Normal. OTHER FINDINGS: None. IMPRESSION: No active disease. No significant interval change compared to the prior examination(s). Concordant results with the preliminary interpretation rendered by the emergency department physician\PA at the conclusion of the procedure. RECENT ECHO: WNL Planer Off Bearer: Radiologist - EKG Interpretation EKG Interpretation (Text): 03/25/17 17:29 NSR at 70 bpm, normal axis, no ectopy, no st-t changes, BORDERLINE EKG; unchanged compare with old ekg 03/201703/25/17 17:34 Interpreted by ED Physician: Yes Type: 12 lead EKG Comparison: Similar to previous EKG - Medication Orders Current Medication Orders: Discontinued Medications Lidocaine (Lidoderm) 1 ea TD ONCE ONE Stop: 03/25/17 15:56 Last Admin: 03/25/17 16:18 Dose: 1 ea MAR Transdermal Patch Site Document 03/25/17 16:18 OCS (Rec: 03/25/17 16:18 OCS [id number]) Transdermal Patch Site Transdermal Patch Site Left Upper Chest Disposition/Present on Arrival - Present on Arrival Any Indicators Present on Arrival: No History of DVT/PE: No History of Uncontrolled Diabetes: No Urinary Catheter: No History of Decub. Ulcer: No History Surgical Site Infection Following: None - Disposition Have Diagnosis and Disposition been Completed?: Yes Diagnosis: Atypical chest pain, Shortness of breath Disposition: HOME/ ROUTINE Disposition Time: 17:49 Patient Plan: Discharge Condition: STABLE Discharge Instructions (ExitCare): Chest Pain (ED), Dyspnea (ED), Normal Exam ( ED) Print Language: BAHAMIAN Additional Instructions: Make sure to see your doctor in 1-2 days DRINK PLENTY OF FLUIDS take your medications as prescribed AVOID caffiene products RETURN TO ED IF worse pain, cant breath, persistent vomiting, high fever >101- 102 for hours, altered behavior, unable to urinate, heavy/persistent bleeding, passing out, chest pain, or other medical emergencies Prescriptions: Lidocaine 5% [Lidoderm] 1 patch TOP DAILY #15 patch Referrals: Shannon Mayer MD [Primary Care Provider] - Follow up with primary Forms: [employer] ([place])
[2017-03-25] MEDS ORDERED: Lidocaine 5% Patch TD ONE (15:55)
[2017-03-25 16:12] LABS: PH,URINE 7.5 (4.7-8.0); URINE BILIRUBIN NEGATIVE (NEGATIVE); URINE BLOOD NEGATIVE (NEGATIVE); URINE GLUCOSE (UA) NEGATIVE (NEGATIVE); URINE KETONE NEGATIVE (NEGATIVE); URINE LEUKOCYTE ESTERASE NEGATIVE Leu/uL (NEGATIVE); URINE PROTEIN NEGATIVE mg/dL (<30 mg/dL); URINE UROBILINOGEN 0.2 E.U./dL (<1 E.U./dL)
[2017-03-25 16:13] LABS: URINE APPEARANCE CLEAR (CLEAR); URINE COLOR YELLOW (YELLOW)
[2017-03-25 16:15] LABS: EOS # 0.1 (0.0-0.7); EOS % 1.6 % (1.5-5.0); GRAN # 3.47 (1.4-6.5); HEMATOCRIT 42.8 % (42.0-52.0); LYMPH # 1.1 (1.2-3.4); LYMPH % 22.4 % (22.0-35.0); MEAN CELL VOLUME 81.1 fl (80.0-105.0); MEAN CORPUSCULAR HEMOGLOBIN 27.3 pg (25.0-35.0); MEAN CORPUSCULAR HGB CONC 33.6 g/dl (31.0-37.0); MEAN PLATELET VOLUME 10.5 fl (7.0-11.0); MONO # 0.4 (0.1-0.6); RED CELL DISTRIBUTION WIDTH 12.8 % (11.5-14.5); WHITE BLOOD COUNT 5.1 10^3/ul (4.5-11.0)
[2017-03-25 16:27] LABS: ALB/GLOB RATIO 1.7 (1.1-1.8); ALKALINE PHOSPHATASE 66 U/L (38-126); ALT/SGPT 42 U/L (7-56); AST/SGOT 23 U/L (17-59); BILIRUBIN,TOTAL 0.5 mg/dL (0.2-1.3); BLOOD UREA NITROGEN 17 mg/dL (7-21); CARBON DIOXIDE 27 mmol/L (21-33); CHLORIDE 103 mmol/L (98-107); GFR AFRICAN-AMERICAN > 60; GLUCOSE,RANDOM 87 mg/dL (70-110); LIPASE 132 U/L (23-300); POTASSIUM 4.4 mmol/L (3.6-5.0); SODIUM 142 mmol/L (132-148); TOTAL PROTEIN 7.4 g/dL (5.8-8.3)
[2017-03-25 16:38] LABS: TROPONIN I < 0.01 ng/mL
--- NOTE | 2017-03-25 17:24 | RAD ---
HISTORY: Chest pain. COMPARISON: 03/23/2017 TECHNIQUE: Chest PA and lateral FINDINGS: LUNGS: No active pulmonary disease. PLEURA: No significant pleural effusion identified. No pneumothorax apparent. CARDIOVASCULAR: Normal. OSSEOUS STRUCTURES: No significant abnormalities. VISUALIZED UPPER ABDOMEN: Normal. OTHER FINDINGS: None. IMPRESSION: No active disease. No significant interval change compared to the prior examination(s). Concordant results with the preliminary interpretation rendered by the emergency department physician procedure.
--- NOTE | 2017-03-26 17:29 | CARD ---
APPROVED REPORT EKG Measurement Heart [id number] <Conclusion> Sinus rhythm with premature atrial complexes Early repolarization Otherwise normal ECG
[2017-03-28 16:57] LABS: LYME IGG NEGATIVE (NEGATIVE)
[2017-03-28 17:07] LABS: LYME IGM NEGATIVE (NEGATIVE)
== END 2017-03-25 17:55 | disposition home or self-care (01) ==
LOC: ED 15:19
DX: R07.89 Other chest pain (principal); R06.02 Shortness of breath

== ENCOUNTER 2017-03-30 20:38 | Observation (INO) | payer MEDICAID, OTHER ==
[2017-03-30 20:51] VITALS: BMI 21.2
--- NOTE | 2017-03-30 21:00 | ED PDOC ---
Arrival/HPI - General Time Seen by Provider: 03/30/17 20:45 Historian: Patient - History of Present Illness Narrative History of Present Illness (Text): 03/30/17 20:59 Osmin Lopez is a 27 year old male former smoker, whose past medical history includes esophagitis, well known to ER staff, who presents to the Emergency department complaining of chronic chest pain. Patient states he has been experiencing aching mid-sternal chest pain radiating to his back with associated shortness of breath for the past few months. Patient has been seen on multiple previous occasions for similar complaints and was recently admitted to the hospital on 03/22/17 .Pt. states he was told he would need a cardiac catheterization but elected to go home .Patient denies any fever, chills, nausea , vomiting, diarrhea, urinary symptoms, back pain, neck pain, headache, dizziness, or any other complaints. PMD: Dr. Misty Mayer Symptom Onset: Gradual Symptom Course: Unchanged Activities at Onset: Light Context: Home Past Medical History - Provider Review Nursing Documentation Reviewed: Yes - Past History Past History: No Previous - Infectious Disease Hx of Infectious Diseases: None - Tetanus Immunization Tetanus Immunization: Unknown - Past Medical History Past Medical History: No Previous - Cardiac Hx Cardiac Disorders: No - Pulmonary Hx Respiratory Disorders: No - Neurological Hx Neurological Disorder: No - HEENT Hx HEENT Disorder: No - Renal Hx Renal Disorder: No - Endocrine/Metabolic Hx Endocrine Disorders: No - Hematological/Oncological Hx Cancer: No - Integumentary Hx Dermatological Disorder: No - Musculoskeletal/Rheumatological Hx Falls: No - Gastrointestinal Hx Gastrointestinal Disorders: Yes Hx Gastroesophageal Reflux: Yes Other/Comment: ESOPHAGITIS - Genitourinary/Gynecological Hx Genitourinary Disorders: No - Psychiatric Hx Psychophysiologic Disorder: Yes Hx Anxiety: Yes Hx Substance Use: No - Past Surgical History Past Surgical History: No Previous - Surgical History Hx Appendectomy: Yes Other/Comment: endoscopy - Anesthesia Hx Anesthesia: Yes Hx Anesthesia Reactions: No Hx Malignant Hyperthermia: No - Suicidal Assessment Feels Threatened In Home Enviroment: No Family/Social History - Physician Review Nursing Documentation Reviewed: Yes Family/Social History: Unknown Family HX Smoking Status: Never Smoked Hx Alcohol Use: No Amount per day: 4 Hx Substance Use: No Hx Substance Use Treatment: No Allergies/Home Meds Allergies/Adverse Reactions: Allergies No Known Allergies Allergy (Verified 03/30/17 20:48) Home Medications: Home Meds Medication Instructions Recorded Confirmed Metoprolol Succinate [Toprol XL] 25 mg PO DAILY 03/13/17 03/30/17 Alprazolam [Xanax] 0.5 mg PO DAILY 03/30/17 03/30/17 Review of Systems - Physician Review All systems were reviewed & negative as marked: Yes - Review of Systems Constitutional: Normal. absent: Fevers Eyes: Normal ENT: Normal Respiratory: SOB. absent: Cough Cardiovascular: Chest Pain Gastrointestinal: Normal. absent: Abdominal Pain, Diarrhea, Nausea, Vomiting Genitourinary Male: Normal. absent: Dysuria, Frequency, Hematuria Musculoskeletal: Normal. absent: Neck Pain Skin: Normal. absent: Rash Neurological: Normal. absent: Headache, Dizziness Endocrine: Normal Hemo/Lymphatic: Normal Psychiatric: Normal Physical Exam Vital Signs Reviewed: Yes Vital Signs Temp Pulse Resp BP Pulse Ox 03/30/17 20:52 98.1 F 91 H 16 132/75 100 Temperature: Afebrile Blood Pressure: Normal Pulse: Regular Respiratory Rate: Normal Appearance: Positive for: Well-Appearing, Non-Toxic, Comfortable Pain Distress: None Mental Status: Positive for: Alert and Oriented X 3 - Systems Exam Head: Present: Atraumatic, Normocephalic Pupils: Present: PERRL Extroacular Muscles: Present: EOMI Conjunctiva: Present: Normal Mouth: Present: Moist Mucous Membranes Neck: Present: Normal Range of Motion Respiratory/Chest: Present: Clear to Auscultation, Good Air Exchange. No: Respiratory Distress, Accessory Muscle Use Cardiovascular: Present: Regular Rate and Rhythm, Normal S1, S2. No: Murmurs Abdomen: Present: Normal Bowel Sounds. No: Tenderness, Distention, Peritoneal Signs Back: Present: Normal Inspection Upper Extremity: Present: Normal Inspection. No: Cyanosis, Edema Lower Extremity: Present: Normal Inspection. No: Edema Neurological: Present: GCS=15, CN II-XII Intact, Speech Normal Skin: Present: Warm, Dry, Normal Color. No: Rashes Psychiatric: Present: Alert, Oriented x 3, Normal Insight, Normal Concentration Medical Decision Making ED Course and Treatment: 03/30/17 20:59 Impression: 27 year old male complaining of mid-sternal chest pain with shortness of breath. Plan: -- EKG -- Chest X-ray -- Labs, cardiac enzymes -- Reassess and disposition Prior Visits: Notes and results from previous visits were reviewed. On 03/22/2017, pt was seen in the Emergency department for chest pain for chest pain. Pt was admitted to the hospital for further evaluation. Progress Notes: 03/30/17 21:25 Reviewed EKG, NSR at 86 bpm[address] Non-specific ST/T wave changes. 03/30/17 23:27 Chest X-ray reviewed, shows no acute processes. 03/31/17 00:07 Case discussed with medical administrative technician division order technician, who is aware and agrees with plan. 03/31/17 00:[address] Candice Awad, who is aware and agrees with plan. Accepts pt in to hospitalist service. Pt will go to telemetry observation for chest pain. Pt agreeable with plan. - Lab Interpretations Lab Results: 03/30/17 21:30 03/30/17 21:30 Lab Results 03/30/17 21:30: PT 12.4, INR 1.13 H, APTT 31.7 03/30/17 21:30: WBC 5.6, RBC 5.34, Hgb 14.4, Hct 42.7, MCV 80.0, MCH 27.0, MCHC 33.7, RDW 12.5, Plt Count 205, MPV 10.7 03/30/17 21:30: Sodium 141, Potassium 4.0, Chloride 104, Carbon Dioxide 28, Anion Gap 13, BUN 17, Creatinine 1.1, Est GFR ( Amer) > 60, Est GFR (Non- Af Amer) > 60, Random Glucose 88, Calcium 9.9, Total Bilirubin 0.3, AST 22, ALT 26, Alkaline Phosphatase 75, Lactate Dehydrogenase 364, Total Creatine Kinase 40 , Troponin I < 0.01, Total Protein 7.2, Albumin 4.5, Globulin 2.7, Albumin/ Globulin Ratio 1.7 I have reviewed the lab results: Yes - RAD Interpretation Radiology Orders: 03/30/17 21:11 CHEST PORTABLE [RAD] Stat Watershed Manager: ED Physician - EKG Interpretation Interpreted by ED Physician: Yes Type: 12 lead EKG - Scribe Statement The provider has reviewed the documentation as recorded by the Erin Mckeon Provider Scribe Attestation: All medical record entries made by the Scribe were at my direction and personally dictated by me. I have reviewed the chart and agree that the record accurately reflects my personal performance of the history, physical exam, medical decision making, and the department course for this patient. I have also personally directed, reviewed, and agree with the discharge instructions and disposition. Disposition/Present on Arrival - Present on Arrival Any Indicators Present on Arrival: No History of DVT/PE: No History of Uncontrolled Diabetes: No Urinary Catheter: No History of Decub. Ulcer: No History Surgical Site Infection Following: None - Disposition Have Diagnosis and Disposition been Completed?: Yes Diagnosis: Chest pain Disposition: HOSPITALIZED Disposition Time: 00:39 Patient Plan: Observation Condition: STABLE Discharge Instructions (ExitCare): Chest Pain (ED) Referrals: Jovanna Olvera, [Primary Care Provider] - Follow up with primary
[2017-03-30 21:48] LABS: HEMOGLOBIN 14.4 g/dL (14.0-18.0); MEAN CORPUSCULAR HGB CONC 33.7 g/dl (31.0-37.0); MEAN PLATELET VOLUME 10.7 fl (7.0-11.0); RBC 5.34 10^6/uL (3.5-6.1); RED CELL DISTRIBUTION WIDTH 12.5 % (11.5-14.5); WHITE BLOOD COUNT 5.6 10^3/ul (4.5-11.0)
[2017-03-30 22:00] LABS: INR 1.13 (0.93-1.08); PARTIAL THROMBOPLASTIN TIME 31.7 Seconds (25.1-36.5); PROTHROMBIN TIME 12.4 SECONDS (9.4-12.5)
[2017-03-30 22:06] LABS: TROPONIN I < 0.01 ng/mL
[2017-03-30 22:14] LABS: BLOOD UREA NITROGEN 17 mg/dL (7-21); CALCIUM 9.9 mg/dL (8.4-10.5); GFR AFRICAN-AMERICAN > 60; GFR NON-AFRICAN AMERICAN > 60
[2017-03-30 22:15] LABS: ALB/GLOB RATIO 1.7 (1.1-1.8); ALBUMIN 4.5 g/dL (3.0-4.8); ALT/SGPT 26 U/L (7-56); AST/SGOT 22 U/L (17-59)
[2017-03-31 00:59] VITALS: TEMP 97.6
--- NOTE | 2017-03-31 04:38 | CP.PCM.HP ---
<Belen Rousseau - Last Filed: 03/31/17 04:25> History of Present Illness - History of Present Illness History of Present Illness: Belen Rousseau DO PGY1 - Internal Medicine H&P CC: Chest pain HPI: 27 yo M with PMH of chronic chest pain for the past 3 months, dextroscoliosis, and anxiety disorder, presents complaining of chest pain. Reports the chest pain is unremitting, sharp and achy in character; in the entire upper chest; occasionally radiating to his back; made worse by anxiety or exertion; improves slightly with percocet but does not improve with xanax; associated with shortness of breath, lightheadedness, and dizziness. He denies diaphoresis or nausea. Patient is extremely concerned with the pain, has lost his job because of the pain, and the medications he needs to take to address the pain. He denies calf pain, abdominal pain, fever, chills, recent travel, recent illness, sick contacts, recent new stresses in his life. 12 point ROS was obtained and was negative except as above PMH: Chest pain for the past 3 months, dextroscoliosis, and anxiety disorder PSH: Denies FHx: Denies Soc: Prior smoker, 9 PYH, quit 2 months ago; denies alcohol; previously used cocaine, last used 2 years ago All: NKDA Present on Admission - Present on Admission Any Indicators Present on Admission: No Past Patient History - Infectious Disease Hx of Infectious Diseases: None - Tetanus Immunizations Tetanus Immunization: Unknown - Past Social History Smoking Status: Never Smoked - CARDIAC Hx Cardiac Disorders: Yes Hx Cardia Arrhythmia: Yes - PULMONARY Hx Respiratory Disorders: No - NEUROLOGICAL Hx Neurological Disorder: No - HEENT Hx HEENT Problems: No - RENAL Hx Chronic Kidney Disease: No - ENDOCRINE/METABOLIC Hx Endocrine Disorders: No - HEMATOLOGICAL/ONCOLOGICAL Hx Blood Disorders: No - INTEGUMENTARY Hx Dermatological Problems: No - MUSCULOSKELETAL/RHEUMATOLOGICAL Hx Musculoskeletal Disorders: No Hx Falls: No - GASTROINTESTINAL Hx Gastrointestinal Disorders: Yes Hx Gastroesophageal Reflux: Yes - GENITOURINARY/GYNECOLOGICAL Hx Genitourinary Disorders: No - PSYCHIATRIC Hx Psychophysiologic Disorder: Yes Hx Anxiety: Yes Hx Depression: Yes Hx Substance Use: No - SURGICAL HISTORY Hx Surgeries: Yes Hx Cholecystectomy: Yes - ANESTHESIA Hx Anesthesia: Yes Hx Anesthesia Reactions: No Hx Malignant Hyperthermia: No Meds Allergies/Adverse Reactions: Allergies Allergy/AdvReac Type Severity Reaction Status Date / Time No Known Allergies Allergy Verified 03/30/17 20:48 Physical Exam - Constitutional Appears: Non-toxic, No Acute Distress - Head Exam Head Exam: ATRAUMATIC, NORMOCEPHALIC - Eye Exam Eye Exam: EOMI, Normal appearance, PERRL - ENT Exam ENT Exam: Mucous Membranes Moist - Neck Exam Neck exam: Positive for: Normal Inspection - Respiratory Exam Respiratory Exam: Clear to Auscultation Bilateral, NORMAL BREATHING PATTERN. absent: Chest Wall Tenderness, Rales, Rhonchi, Wheezes, Respiratory Distress - Cardiovascular Exam Cardiovascular Exam: RRR, +S1, +S2. absent: Tachycardia, JVD, +S4 - GI/Abdominal Exam GI & Abdominal Exam: Normal Bowel Sounds, Soft. absent: Distended, Firm, Guarding, Tenderness - Extremities Exam Extremities exam: Negative for: calf tenderness, pedal edema - Neurological Exam Neurological exam: Alert, Oriented x3 - Psychiatric Exam Psychiatric exam: Normal Affect, Normal Mood - Skin Skin Exam: Dry, Intact, Normal Color Results - Vital Signs Recent Vital Signs: Last Vital Signs Temp 97.6 F 03/31/17 00:39 Pulse 65 03/31/17 02:13 Resp 20 03/31/17 02:13 BP 118/72 03/31/17 00:39 Pulse Ox 100 03/31/17 00:39 - Labs Result Diagrams: 03/30/17 21:30 03/30/17 21:30 Assessment & Plan - Assessment and Plan (Free Text) Assessment: 27 yo M with PMH of chronic chest pain, dextroscoliosis, and anxiety disorder presents complaining of chest pain Chest pain - Patient complaining of unremitting chest pain for the past three months; has been worked up extensively in the past - Current EKG unchanged from prior exam - Initial troponin negative; continue to trend - Prior echo done 03/23/17, reported normal - GI workup done, including EGD, shows mild gastritis - Patient had D-dimer drawn one week ago, which was negative - Patient also has history of dextroscoliosis, which may be progressive, causing respiratory compromise; most likely the cause of his chronic chest pain - Ordered PFTs and requested pulmonology consult; appreciate recs - Patient requesting further cardiac workup, up to and including cardiac catheterization - Requested cardiology consult for chest pain; appreciate recs - Start ASA daily - Resume home Metroprolol - Start Ibuprofen 600mg Q6H PRN for pain - Continue to monitor GI PPx: Pepcid DVT Ppx: SCDs Patient seen, discussed, and reviewed with attending Dr. Awad <Jennifer Awad - Last Filed: 04/01/17 02:07> Results - Vital Signs Recent Vital Signs: Last Vital Signs Temp 97.6 F 03/31/17 12:00 Pulse 66 03/31/17 12:00 Resp 20 03/31/17 12:00 BP 105/61 03/31/17 12:00 Pulse Ox 99 03/31/17 06:00 - Labs Result Diagrams: 03/30/17 21:30 03/31/17 06:30 Labs: Laboratory Results - last 24 hr 03/31/17 03/31/17 03/31/17 06:30 10:00 12:00 Sodium 142 Potassium 3.7 Chloride 102 Carbon Dioxide 27 Anion Gap 16 BUN 21 Creatinine 1.0 Est GFR ( Amer) > 60 Est GFR (Non-Af Amer) > 60 Random Glucose 77 Calcium 9.5 Phosphorus 5.4 H Magnesium 2.1 Total Bilirubin 0.3 AST 20 ALT 31 Alkaline Phosphatase 71 Troponin I < 0.01 < 0.01 Total Protein 6.5 Albumin 4.0 Globulin 2.5 Albumin/Globulin Ratio 1.6 Triglycerides 99 Cholesterol 141 LDL Cholesterol Direct 66 HDL Cholesterol 46 Amylase 114 Lipase 717 H Urine Opiates Screen Urine Methadone Screen Ur Barbiturates Screen Ur Phencyclidine Scrn Ur Amphetamines Screen U Benzodiazepines Scrn U Oth Cocaine Metabols U Cannabinoids Screen Alcohol, Quantitative 03/31/17 03/31/17 14:20 16:00 Sodium Potassium Chloride Carbon Dioxide Anion Gap BUN Creatinine Est GFR ( Amer) Est GFR (Non-Af Amer) Random Glucose Calcium Phosphorus Magnesium Total Bilirubin AST ALT Alkaline Phosphatase Troponin I Total Protein Albumin Globulin Albumin/Globulin Ratio Triglycerides Cholesterol LDL Cholesterol Direct HDL Cholesterol Amylase Lipase Urine Opiates Screen Negative Urine Methadone Screen Negative Ur Barbiturates Screen Negative Ur Phencyclidine Scrn Negative Ur Amphetamines Screen Negative U Benzodiazepines Scrn Positive U Oth Cocaine Metabols Negative U Cannabinoids Screen Negative Alcohol, Quantitative < 10
[2017-03-31 08:04] LABS: ALB/GLOB RATIO 1.6 (1.1-1.8); ALT/SGPT 31 U/L (7-56); AST/SGOT 20 U/L (17-59); BLOOD UREA NITROGEN 21 mg/dL (7-21); CALCIUM 9.5 mg/dL (8.4-10.5); GFR AFRICAN-AMERICAN > 60; GFR NON-AFRICAN AMERICAN > 60; MAGNESIUM 2.1 mg/dL (1.7-2.2)
[2017-03-31 08:12] LABS: TROPONIN I < 0.01 ng/mL
[2017-03-31 08:22] VITALS: O2SAT 99
--- NOTE | 2017-03-31 08:49 | RAD ---
HISTORY: pain COMPARISON: No prior. FINDINGS: LUNGS: No active pulmonary disease. PLEURA: No significant pleural effusion identified, no pneumothorax apparent. CARDIOVASCULAR: Normal. OSSEOUS STRUCTURES: Mild scoliotic deformity upper thoracic spine unchanged. . VISUALIZED UPPER ABDOMEN: Normal. OTHER FINDINGS: None. IMPRESSION: No acute consolidation.
[2017-03-31] MEDS ORDERED: Bismuth Subsalicylate 262 mg/15 ml Sus (240 ml) PO ONE (09:05)
[2017-03-31] MEDS ORDERED: Metoprolol Succinate 25 mg XL Tab PO SCH (10:00)
[2017-03-31 10:47] LABS: AMYLASE 114 U/L (35-125); LIPASE 717 U/L (23-300)
[2017-03-31 10:52] LABS: TROPONIN I < 0.01 ng/mL
[2017-03-31] MEDS: Morphine 2 mg/ml ISec IVP PRN ×2 (12:09→17:02)
[2017-03-31 12:24] LABS: HDL CHOLESTEROL 46 mg/dL (29-60)
[2017-03-31 12:35] LABS: LDL CHOLESTEROL 66 mg/dL (0-129)
[2017-03-31 13:34] VITALS: BP 105/61; PULSE 66; RESP 20
--- NOTE | 2017-03-31 15:07 | US ---
HISTORY: Abdominal pain. Elevated lipase. COMPARISON: None. TECHNIQUE: Sonographic evaluation of the abdomen. FINDINGS: LIVER: The liver measures approximately 15 cm in CC dimension. Liver demonstrates smooth contour and normal echotexture. No obvious hepatic mass or collection seen on images presented. No gross intrahepatic biliary ductal dilatation. Portal vein exhibits hepatopetal flow. No evidence of abdominal ascites GALLBLADDER: Gallbladder is physiologically distended. No evidence of intraluminal gallbladder calculi. No pericholecystic fluid collections or sonographic Hernández sign. COMMON BILE DUCT: Measures 2.1 mm. No stones. No dilatation. PANCREAS: Unremarkable as visualized. No mass. No ductal dilatation. RIGHT KIDNEY: Right kidney measures approximately 10.4 x 4.4 x 5.8cm. Normal echogenicity. No calculus, mass, or hydronephrosis. LEFT KIDNEY: Left kidney measures approximate 10.3 x 4.4 x 4.4cm. Normal echogenicity. No calculus, mass, or hydronephrosis. SPLEEN: Spleen is upper limits of normal measuring nearly 12 cm in AP dimension. No splenic mass collection or calcification. AORTA: No aneurysmal dilatation. IVC: Unremarkable. OTHER FINDINGS: None. IMPRESSION: Unremarkable abdominal sonogram.
--- NOTE | 2017-03-31 15:38 | CARD ---
APPROVED REPORT EKG Measurement Heart [id number] <Conclusion> Normal sinus rhythm Possible Left atrial enlargement RSR' or QR pattern in V1 suggests right ventricular conduction delay Borderline ECG
[2017-03-31 16:43] LABS: BARBITURATES, UR NEGATIVE (NEGATIVE); OPIATES, UR NEGATIVE (NEGATIVE); PHENCYCLIDINE, UR NEGATIVE (NEGATIVE)
[2017-03-31 16:49] LABS: BENZODIAZEPINES, UR POSITIVE (NEGATIVE)
--- NOTE | 2017-04-01 14:03 | CP.PCM.DIS ---
<Darien Gottlieb - Last Filed: 04/01/17 14:05> Provider - Provider Date of Admission: 03/31/17 00:37 Attending physician: Freddie Jimenez MD Primary care physician: Joavnna Profile Required Time Spent in preparation of Discharge (in minutes): 35 Hospital Course - Lab Results Lab Results: Most Recent Lab Values WBC 5.6 10^3/ul (4.5-11.0) 03/30/17 21:30 RBC 5.34 10^6/uL (3.5-6.1) 03/30/17 21:30 Hgb 14.4 g/dL (14.0-18.0) 03/30/17 21:30 Hct 42.7 % (42.0-52.0) 03/30/17 21:30 MCV 80.0 fl (80.0-105.0) 03/30/17 21:30 MCH 27.0 pg (25.0-35.0) 03/30/17 21:30 MCHC 33.7 g/dl (31.0-37.0) 03/30/17 21:30 RDW 12.5 % (11.5-14.5) 03/30/17 21:30 Plt Count 205 10^3/uL (120.0-450.0) 03/30/17 21:30 MPV 10.7 fl (7.0-11.0) 03/30/17 21:30 PT 12.4 SECONDS (9.4-12.5) 03/30/17 21:30 INR 1.13 (0.93-1.08) H 03/30/17 21:30 APTT 31.7 Seconds (25.1-36.5) 03/30/17 21:30 Sodium 142 mmol/L (132-148) 03/31/17 06:30 Potassium 3.7 mmol/L (3.6-5.0) 03/31/17 06:30 Chloride 102 mmol/L (98-107) 03/31/17 06:30 Carbon Dioxide 27 mmol/L (21-33) 03/31/17 06:30 Anion Gap 16 (10-20) 03/31/17 06:30 BUN 21 mg/dL (7-21) 03/31/17 06:30 Creatinine 1.0 mg/dl (0.8-1.5) 03/31/17 06:30 Est GFR ( Amer) > 60 03/31/17 06:30 Est GFR (Non-Af Amer) > 60 03/31/17 06:30 Random Glucose 77 mg/dL (70-110) 03/31/17 06:30 Calcium 9.5 mg/dL (8.4-10.5) 03/31/17 06:30 Phosphorus 5.4 mg/dL (2.5-4.5) H 03/31/17 06:30 Magnesium 2.1 mg/dL (1.7-2.2) 03/31/17 06:30 Total Bilirubin 0.3 mg/dL (0.2-1.3) 03/31/17 06:30 AST 20 U/L (17-59) 03/31/17 06:30 ALT 31 U/L (7-56) 03/31/17 06:30 Alkaline Phosphatase 71 U/L (38-126) 03/31/17 06:30 Lactate Dehydrogenase 364 U/L (333-699) 03/30/17 21:30 Total Creatine Kinase 40 U/L (35-230) 03/30/17 21:30 Troponin I < 0.01 ng/mL 03/31/17 10:00 Total Protein 6.5 g/dL (5.8-8.3) 03/31/17 06:30 Albumin 4.0 g/dL (3.0-4.8) 03/31/17 06:30 Globulin 2.5 gm/dL 03/31/17 06:30 Albumin/Globulin Ratio 1.6 (1.1-1.8) 03/31/17 06:30 Triglycerides 99 mg/dL (35-160) 03/31/17 12:00 Cholesterol 141 mg/dL (130-200) 03/31/17 12:00 LDL Cholesterol Direct 66 mg/dL (0-129) 03/31/17 12:00 HDL Cholesterol 46 mg/dL (29-60) 03/31/17 12:00 Amylase 114 U/L (35-125) 03/31/17 10:00 Lipase 717 U/L (23-300) H 03/31/17 10:00 Urine Opiates Screen Negative (NEGATIVE) 03/31/17 16:00 Urine Methadone Screen Negative (NEGATIVE) 03/31/17 16:00 Ur Barbiturates Screen Negative (NEGATIVE) 03/31/17 16:00 Ur Phencyclidine Scrn Negative (NEGATIVE) 03/31/17 16:00 Ur Amphetamines Screen Negative (NEGATIVE) 03/31/17 16:00 U Benzodiazepines Scrn Positive (NEGATIVE) 03/31/17 16:00 U Oth Cocaine Metabols Negative (NEGATIVE) 03/31/17 16:00 U Cannabinoids Screen Negative (NEGATIVE) 03/31/17 16:00 Alcohol, Quantitative < 10 mg/dL (0-10) 03/31/17 14:20 - Hospital Course Hospital Course: Darien Gottlieb PGY1 Discharge Summary Mr. 27 yo M with PMH of chronic chest pain for the past 3 months, dextroscoliosis, and anxiety disorder, who presented complaining of chest pain. Patient was admitted to telemetry unit. EKG showed NSR at 86 bpm and Non- specific ST/T wave changes. Chest X-ray reviewed, shows no acute processes. VS were stable and CMP was wnl. Lipase was noted to be elevated. UDS was negative. Troponin was negative x3. Patient was managed for pancreatitis. Cardio and psych were consulted given hx and presentation. Chart review that patient has had multiple visits for similar complaints. Patient had Echo done on 03/23/17 which showed normal EF and no valvular or LV wall motion abnormalities. Patient had EGD w/ biopsies on 01/22/17 which showed chronic gastritis and confirmed absence of metaplasia. Resident production control clerk, myself, was paged regarding patient wanting to leave [facility] since he is not receiving a catheterization here, and that he is wanting to go to [facility] to receive a cath there. Chart was reviewed for prior hx and current admission vital signs/labs. By the time I arrived to sign patient out AMA, I was informed that he had eloped. Patient is medically stable, however, I did not personally see the patient, receive ROS or conduct a physical exam. Above information is all from chart review. - Date & Time of H&P Date of H&P: 03/31/17 Time of H&P: 04:25 Discharge Exam - Additional Findings Additional findings: not conduced due to patient eloping Discharge Plan - Follow Up Plan Condition: STABLE Disposition: HOME/ ROUTINE Instructions: Chest Pain (DC), Chest Pain (GEN) Referrals: Zenoss Criselda Req, [Primary Care Provider] - <Freddie Jimenez - Last Filed: 04/01/17 14:10> Provider - Provider Date of Admission: 03/31/17 00:37 Attending physician: Freddie Jimenez MD Primary care physician: Jovanna Aburto Required Hospital Course - Lab Results Lab Results: Most Recent Lab Values WBC 5.6 10^3/ul (4.5-11.0) 03/30/17 21:30 RBC 5.34 10^6/uL (3.5-6.1) 03/30/17 21:30 Hgb 14.4 g/dL (14.0-18.0) 03/30/17 21:30 Hct 42.7 % (42.0-52.0) 03/30/17 21:30 MCV 80.0 fl (80.0-105.0) 03/30/17 21:30 MCH 27.0 pg (25.0-35.0) 03/30/17 21:30 MCHC 33.7 g/dl (31.0-37.0) 03/30/17 21:30 RDW 12.5 % (11.5-14.5) 03/30/17 21:30 Plt Count 205 10^3/uL (120.0-450.0) 03/30/17 21:30 MPV 10.7 fl (7.0-11.0) 03/30/17 21:30 PT 12.4 SECONDS (9.4-12.5) 03/30/17 21:30 INR 1.13 (0.93-1.08) H 03/30/17 21:30 APTT 31.7 Seconds (25.1-36.5) 03/30/17 21:30 Sodium 142 mmol/L (132-148) 03/31/17 06:30 Potassium 3.7 mmol/L (3.6-5.0) 03/31/17 06:30 Chloride 102 mmol/L (98-107) 03/31/17 06:30 Carbon Dioxide 27 mmol/L (21-33) 03/31/17 06:30 Anion Gap 16 (10-20) 03/31/17 06:30 BUN 21 mg/dL (7-21) 03/31/17 06:30 Creatinine 1.0 mg/dl (0.8-1.5) 03/31/17 06:30 Est GFR ( Amer) > 60 03/31/17 06:30 Est GFR (Non-Af Amer) > 60 03/31/17 06:30 Random Glucose 77 mg/dL (70-110) 03/31/17 06:30 Calcium 9.5 mg/dL (8.4-10.5) 03/31/17 06:30 Phosphorus 5.4 mg/dL (2.5-4.5) H 03/31/17 06:30 Magnesium 2.1 mg/dL (1.7-2.2) 03/31/17 06:30 Total Bilirubin 0.3 mg/dL (0.2-1.3) 03/31/17 06:30 AST 20 U/L (17-59) 03/31/17 06:30 ALT 31 U/L (7-56) 03/31/17 06:30 Alkaline Phosphatase 71 U/L (38-126) 03/31/17 06:30 Lactate Dehydrogenase 364 U/L (333-699) 03/30/17 21:30 Total Creatine Kinase 40 U/L (35-230) 03/30/17 21:30 Troponin I < 0.01 ng/mL 03/31/17 10:00 Total Protein 6.5 g/dL (5.8-8.3) 03/31/17 06:30 Albumin 4.0 g/dL (3.0-4.8) 03/31/17 06:30 Globulin 2.5 gm/dL 03/31/17 06:30 Albumin/Globulin Ratio 1.6 (1.1-1.8) 03/31/17 06:30 Triglycerides 99 mg/dL (35-160) 03/31/17 12:00 Cholesterol 141 mg/dL (130-200) 03/31/17 12:00 LDL Cholesterol Direct 66 mg/dL (0-129) 03/31/17 12:00 HDL Cholesterol 46 mg/dL (29-60) 03/31/17 12:00 Amylase 114 U/L (35-125) 03/31/17 10:00 Lipase 717 U/L (23-300) H 03/31/17 10:00 Urine Opiates Screen Negative (NEGATIVE) 03/31/17 16:00 Urine Methadone Screen Negative (NEGATIVE) 03/31/17 16:00 Ur Barbiturates Screen Negative (NEGATIVE) 03/31/17 16:00 Ur Phencyclidine Scrn Negative (NEGATIVE) 03/31/17 16:00 Ur Amphetamines Screen Negative (NEGATIVE) 03/31/17 16:00 U Benzodiazepines Scrn Positive (NEGATIVE) 03/31/17 16:00 U Oth Cocaine Metabols Negative (NEGATIVE) 03/31/17 16:00 U Cannabinoids Screen Negative (NEGATIVE) 03/31/17 16:00 Alcohol, Quantitative < 10 mg/dL (0-10) 03/31/17 14:20
--- NOTE | 2017-04-02 09:07 | CON ---
DATE: 04/01/2017 The patient was discharged before I was able to evaluate him. Salvador Christine MD
--- NOTE | 2017-04-02 09:54 | CP.PCM.PCO ---
Physician Communication Note - Physician Communication Note Physician Communication Note: pt was d/c
== END 2017-03-31 19:00 | disposition left against medical advice (07) ==
LOC: ED 20:38 → ERH 03-31 00:37 → 3RSO 03-31 02:30
PROVIDERS: ADMIT Internal Medicine; ATTEND Internal Medicine
DX: R07.89 Other chest pain (principal); G89.29 Other chronic pain; F41.9 Anxiety disorder, unspecified; M41.9 Scoliosis, unspecified; K21.9 Gastro-esophageal reflux disease without esophagitis; K29.50 Unspecified chronic gastritis without bleeding; K85.90 Acute pancreatitis without necrosis or infection, unspecified; Z87.891 Personal history of nicotine dependence
CPT/HCPCS: 36415; 71010; 76700; 80053; 80061; 80320; 80324; 80345; 80346; 80349; 80353; 80358; 80361; 82150; 82550; 83615; 83690; 83735; 83992; 84100; 84484; 85027; 85610; 85730; 93005; 96361; 96374; 96376; 99285; G0378; J2270; J7060

== ENCOUNTER 2017-04-05 17:44 | Emergency (ER) | payer OTHER ==
[2017-04-05 18:04] VITALS: BMI 21.1
[2017-04-05 18:07] VITALS: BP 105/71; PULSE 66; RESP 16; TEMP 98.1; O2SAT 98
--- NOTE | 2017-04-05 19:06 | ED PDOC ---
Arrival/HPI - General Chief Complaint: ENT Problem Time Seen by Provider: 04/05/17 17:46 Historian: Patient - History of Present Illness Narrative History of Present Illness (Text): 04/05/17 19:05 A 27 year old male, whom has been to the ER on multiple visits for chest pain, whose past medical history includes esphagitis and gastritis, presents to the emergency department complaining of sore throat for 3 days. Patient reports experiencing subjective fever and tussive back pain. Denies of any nausea, vomiting, diarrhea, rash, syncopal episode, or any other complaints at this time. PMD: Dr. Mayer Past Medical History - Provider Review Nursing Documentation Reviewed: Yes - Past History Past History: No Previous - Infectious Disease Hx of Infectious Diseases: None - Tetanus Immunization Tetanus Immunization: Unknown - Past Medical History Past Medical History: No Previous - Cardiac Hx Cardiac Disorders: Yes Hx Cardiac Arrhythmia: Yes - Pulmonary Hx Respiratory Disorders: No - Neurological Hx Neurological Disorder: No - HEENT Hx HEENT Disorder: No - Renal Hx Renal Disorder: No - Endocrine/Metabolic Hx Endocrine Disorders: No - Hematological/Oncological Hx Blood Disorders: No - Integumentary Hx Dermatological Disorder: No - Musculoskeletal/Rheumatological Hx Musculoskeletal Disorders: No Hx Falls: No - Gastrointestinal Hx Gastrointestinal Disorders: Yes Hx Gastroesophageal Reflux: Yes - Genitourinary/Gynecological Hx Genitourinary Disorders: No - Psychiatric Hx Psychophysiologic Disorder: Yes Hx Anxiety: Yes Hx Depression: Yes Hx Substance Use: No - Past Surgical History Past Surgical History: No Previous - Surgical History Hx Cholecystectomy: Yes - Anesthesia Hx Anesthesia: Yes Hx Anesthesia Reactions: No Hx Malignant Hyperthermia: No - Suicidal Assessment Feels Threatened In Home Enviroment: No Family/Social History - Physician Review Nursing Documentation Reviewed: Yes Family/Social History: No Known Family HX Smoking Status: Never Smoked Hx Alcohol Use: No Amount per day: 4 Hx Substance Use: No Hx Substance Use Treatment: No Allergies/Home Meds Allergies/Adverse Reactions: Allergies No Known Allergies Allergy (Verified 03/30/17 20:48) Home Medications: Home Meds Medication Instructions Recorded Confirmed Metoprolol Succinate [Toprol XL] 25 mg PO DAILY 03/13/17 04/05/17 Alprazolam [Xanax] 0.5 mg PO DAILY 03/30/17 04/05/17 Review of Systems - Physician Review All systems were reviewed & negative as marked: Yes - Review of Systems Constitutional: Fevers ENT: Sore Throat Cardiovascular: absent: Chest Pain, Syncope Gastrointestinal: absent: Diarrhea, Nausea, Vomiting Musculoskeletal: Back Pain Skin: absent: Rash Physical Exam Vital Signs Reviewed: Yes Vital Signs Temp Pulse Resp BP Pulse Ox 04/05/17 18:04 98.1 F 66 16 105/71 98 Temperature: Afebrile Blood Pressure: Normal Pulse: Regular Respiratory Rate: Normal Appearance: Positive for: Well-Appearing Pain Distress: None Mental Status: Positive for: Alert and Oriented X 3 - Systems Exam Head: Present: Atraumatic, Normocephalic Pupils: Present: PERRL Extroacular Muscles: Present: EOMI Conjunctiva: Present: Normal Mouth: Present: Moist Mucous Membranes Neck: Present: Normal Range of Motion Respiratory/Chest: Present: Clear to Auscultation, Good Air Exchange. No: Respiratory Distress, Accessory Muscle Use Cardiovascular: Present: Regular Rate and Rhythm, Normal S1, S2. No: Murmurs Abdomen: Present: Normal Bowel Sounds. No: Tenderness, Distention, Peritoneal Signs Back: Present: Normal Inspection Upper Extremity: Present: Normal Inspection. No: Cyanosis, Edema Lower Extremity: Present: Normal Inspection. No: Edema Neurological: Present: GCS=15, CN II-XII Intact, Speech Normal Skin: Present: Warm, Dry, Normal Color. No: Rashes Psychiatric: Present: Alert, Oriented x 3, Normal Insight, Normal Concentration Medical Decision Making ED Course and Treatment: 04/05/17 19:07 Impression: 27 year old male with sore throat. Plan: -- Reassess and disposition Prior Visits: Notes and results from previous visits were reviewed. Patient was last seen in the emergency department on 03/30/2017 for chronic chest pain. Patient was d/c home. Progress Notes: - Medication Orders Current Medication Orders: Discontinued Medications Dexamethasone (Decadron Inj) 10 mg IM STAT STA Stop: 04/05/17 18:46 Ketorolac Tromethamine (Toradol) 60 mg IM STAT STA Stop: 04/05/17 18:48 - Scribe Statement The provider has reviewed the documentation as recorded by the Erin Galindo Provider Scribe Attestation: All medical record entries made by the Scribbello were at my direction and personally dictated by me. I have reviewed the chart and agree that the record accurately reflects my personal performance of the history, physical exam, medical decision making, and the department course for this patient. I have also personally directed, reviewed, and agree with the discharge instructions and disposition. Disposition/Present on Arrival - Present on Arrival History of DVT/PE: No History of Uncontrolled Diabetes: No Urinary Catheter: No History of Decub. Ulcer: No History Surgical Site Infection Following: None - Disposition Diagnosis: Pharyngitis, Viral syndrome Disposition: HOME/ ROUTINE Patient Problems: Current Active Problems Problem Status Onset Pharyngitis Acute Viral syndrome Acute Condition: IMPROVED Discharge Instructions (ExitCare): Pharyngitis (ED), Viral Syndrome (ED) Print Language: CHINESE Additional Instructions: Please avoid dairy products. Drink plenty of water, fluids (such as fresh squeezed vegetable and fruit juices, teas especially braulio/garlic and peppermit w/ fresh lemon juice and honey) . Get extra rest. Drink lots of water . If you develop more pardeep 4 days of fever, or change in color of mucus in 1 week then begin your z-alexander. Prescriptions: Acetaminophen [Tylenol 325mg tab] 650 mg PO Q8 PRN #40 tab PRN Reason: Pain, Moderate (4-7) Azithromycin [Z-Alexander] 250 mg PO DAILY #6 tab Benzonatate [Tessalon Perles] 100 mg PO Q8 PRN #30 sgl PRN Reason: Pain, Moderate (4-7) Ipratropium [Atrovent HFA] 0.018 mg IH Q6 PRN #1 bottle PRN Reason: Cough Referrals: Shannon Mayer MD [Primary Care Provider] - Follow up with primary Forms: [employer] (S[place] Tomean)
== END 2017-04-05 19:19 | disposition home or self-care (01) ==
LOC: ED 17:44
DX: J02.9 Acute pharyngitis, unspecified (principal); B34.9 Viral infection, unspecified
CPT/HCPCS: 96372; 99283; J1100; J1885

== ENCOUNTER 2017-04-13 06:15 | Emergency (ER) | payer OTHER ==
[2017-04-13 06:18] VITALS: BMI 21.2
[2017-04-13 07:29] VITALS: RESP 16; O2SAT 99
[2017-04-13 07:39] LABS: ALB/GLOB RATIO 1.7 (1.1-1.8); ALBUMIN 4.7 g/dL (3.0-4.8); ALT/SGPT 36 U/L (7-56); AST/SGOT 28 U/L (17-59); BASO # 0.01 K/mm3 (0.0-2.0); BASO % 0.2 % (0.0-3.0); BLOOD UREA NITROGEN 21 mg/dL (7-21); CALCIUM 9.9 mg/dL (8.4-10.5); EOS # 0.2 (0.0-0.7); EOS % 2.8 % (1.5-5.0); GFR AFRICAN-AMERICAN > 60; GFR NON-AFRICAN AMERICAN > 60; GRAN # 2.16 (1.4-6.5); GRAN % 38.2 % (50.0-68.0); HEMOGLOBIN 14.5 g/dL (14.0-18.0); LYMPH # 2.8 (1.2-3.4); LYMPH % 49.3 % (22.0-35.0); MAGNESIUM 2.1 mg/dL (1.7-2.2); MEAN CORPUSCULAR HEMOGLOBIN 26.7 pg (25.0-35.0); MEAN PLATELET VOLUME 10.7 fl (7.0-11.0); MONO # 0.5 (0.1-0.6); MONO % 9.5 % (1.0-6.0); RBC 5.43 10^6/uL (3.5-6.1); RED CELL DISTRIBUTION WIDTH 13.1 % (11.5-14.5); WHITE BLOOD COUNT 5.7 10^3/ul (4.5-11.0)
[2017-04-13 07:49] LABS: TROPONIN I < 0.01 ng/mL
--- NOTE | 2017-04-13 08:21 | ED PDOC ---
Arrival/HPI - General Chief Complaint: Chest Pain Time Seen by Provider: 04/13/17 07:12 Historian: Patient - History of Present Illness Narrative History of Present Illness (Text): 04/13/17 08:56 A 27 jerome old male, whose past medical history includes chronic chest wall pain and anxiety, presents to the emergency department for chest pain, which began last night. The patient notes associated mild shortness of breath. The patient denies fever, cough, palpitations, or any other complaints at this time. The patient reports he was given a heart monitor by his slab lifting engineer over a month ago and he states he has still not seen his slab lifting engineer for a follow up appointment. Osmin Lopez has been seen in the emergency department on multiple occasions for the same symptoms. Time/Duration: 24 hours Symptom Onset: Gradual Symptom Course: Unchanged Activities at Onset: Light Context: Home Past Medical History - Provider Review Nursing Documentation Reviewed: Yes - Past History Past History: No Previous - Infectious Disease Hx of Infectious Diseases: None - Tetanus Immunization Tetanus Immunization: Unknown - Past Medical History Past Medical History: No Previous - Cardiac Hx Cardiac Disorders: Yes Hx Cardiac Arrhythmia: Yes - Pulmonary Hx Respiratory Disorders: No - Neurological Hx Neurological Disorder: No - HEENT Hx HEENT Disorder: No - Renal Hx Renal Disorder: No - Endocrine/Metabolic Hx Endocrine Disorders: No - Hematological/Oncological Hx Blood Disorders: No - Integumentary Hx Dermatological Disorder: No - Musculoskeletal/Rheumatological Hx Musculoskeletal Disorders: No Hx Falls: No - Gastrointestinal Hx Gastrointestinal Disorders: Yes Hx Gastroesophageal Reflux: Yes - Genitourinary/Gynecological Hx Genitourinary Disorders: No - Psychiatric Hx Psychophysiologic Disorder: Yes Hx Anxiety: Yes Hx Depression: Yes Hx Substance Use: No - Past Surgical History Past Surgical History: No Previous - Surgical History Hx Cholecystectomy: Yes - Anesthesia Hx Anesthesia: Yes Hx Anesthesia Reactions: No Hx Malignant Hyperthermia: No - Suicidal Assessment Feels Threatened In Home Enviroment: No Family/Social History - Physician Review Nursing Documentation Reviewed: Yes Family/Social History: No Known Family HX Smoking Status: Never Smoked Hx Alcohol Use: No Amount per day: 4 Hx Substance Use: No Hx Substance Use Treatment: No Allergies/Home Meds Allergies/Adverse Reactions: Allergies No Known Allergies Allergy (Verified 04/13/17 06:19) Home Medications: Home Meds Medication Instructions Recorded Confirmed Metoprolol Succinate [Toprol XL] 25 mg PO DAILY 03/13/17 04/13/17 Pantoprazole Sodium [Protonix] 40 mg PO DAILY 04/13/17 04/13/17 Physical Exam Vital Signs Reviewed: Yes Vital Signs Temp Pulse Pulse Resp BP Pulse Ox 04/13/17 09:46 97.9 F 77 16 120/77 99 04/13/17 07:28 97.8 F 72 16 112/58 L 99 04/13/17 06:25 77 04/13/17 06:15 97.8 F 78 14 113/79 100 Temperature: Afebrile Blood Pressure: Normal Pulse: Regular Respiratory Rate: Normal Appearance: Positive for: Well-Appearing, Non-Toxic, Comfortable Pain Distress: None Mental Status: Positive for: Alert and Oriented X 3 Medical Decision Making ED Course and Treatment: 04/13/17 08:25 Impression: A 27 year old male with chest pain. Plan: -- EKG -- Chest X-ray -- Labs -- Reassess and disposition Progress Notes: 04/13/17 08:56 EKG: Ordered, reviewed, and independently interpreted the EKG. Rate : 77 BPM Rhythm : NSR Interpretation : No ST-segment elevations or depressions, no T-wave inversions, normal intervals. Comparison : No changes from previous EKG. - Lab Interpretations Lab Results: 04/13/17 07:12 04/13/17 07:12 Lab Results 04/13/17 07:12: Sodium 145, Potassium 4.4, Chloride 100, Carbon Dioxide 30, Anion Gap 19, BUN 21, Creatinine 0.9, Est GFR ( Amer) > 60, Est GFR (Non- Af Amer) > 60, Random Glucose 78, Calcium 9.9, Magnesium 2.1, Total Bilirubin 0.3, AST 28, ALT 36, Alkaline Phosphatase 69, Lactate Dehydrogenase 415, Total Creatine Kinase 33 L, Troponin I < 0.01, Total Protein 7.4, Albumin 4.7, Globulin 2.7, Albumin/Globulin Ratio 1.7 04/13/17 07:12: WBC 5.7, RBC 5.43, Hgb 14.5, Hct 44.0, MCV 81.0, MCH 26.7, MCHC 33.0, RDW 13.1, Plt Count 246, MPV 10.7, Gran % 38.2 L, Lymph % (Auto) 49.3 H, Hinds % (Auto) 9.5 H, Eos % (Auto) 2.8, Baso % (Auto) 0.2, Gran # 2.16, Lymph # 2.8, Hinds # 0.5, Eos # 0.2, Baso # 0.01 - RAD Interpretation Radiology Orders: 04/13/17 07:12 CHEST PORTABLE [RAD] Stat - Scribe Statement The provider has reviewed the documentation as recorded by the Scribe Krupa Sampson Provider Scribe Attestation: All medical record entries made by the Scribe were at my direction and personally dictated by me. I have reviewed the chart and agree that the record accurately reflects my personal performance of the history, physical exam, medical decision making, and the department course for this patient. I have also personally directed, reviewed, and agree with the discharge instructions and disposition. Disposition/Present on Arrival - Present on Arrival Any Indicators Present on Arrival: No History of DVT/PE: No History of Uncontrolled Diabetes: No Urinary Catheter: No History of Decub. Ulcer: No History Surgical Site Infection Following: None - Disposition Have Diagnosis and Disposition been Completed?: Yes Diagnosis: Atypical chest pain Disposition: HOME/ ROUTINE Disposition Time: 08:20 Condition: GOOD Discharge Instructions (ExitCare): Chest Pain (ED) Additional Instructions: Thank you for letting us take care of you today. The emergency medical care you received today was directed at your acute symptoms. If you were prescribed any medication, please fill it and take as directed. It may take several days for your symptoms to resolve. Return to the Emergency Department if your symptoms worsen, do not improve, or if you have any other problems. Please contact your doctor or call one of the physicians/clinics you have been referred to that are listed on the Patient Visit Information form that is included in your discharge packet. Bring any paperwork you were given at discharge with you along with any medications you are taking to your follow up visit. Our treatment cannot replace ongoing medical care by a primary care provider (PCP) outside of the emergency department. Thank you for allowing the [facility] team to be part of your care today. Follow up with your slab lifting engineer in 1-2 days for re-evaluation and further management. Referrals: Shannon Mayer MD [Primary Care Provider] - Follow up with primary Forms: [employer] (Northern Irish)
--- NOTE | 2017-04-13 08:52 | RAD ---
HISTORY: chest pain COMPARISON: 03/30/2017 FINDINGS: LUNGS: No active pulmonary disease. PLEURA: No significant pleural effusion identified, no pneumothorax apparent. CARDIOVASCULAR: Normal. OSSEOUS STRUCTURES: No significant abnormalities. VISUALIZED UPPER ABDOMEN: Normal. OTHER FINDINGS: None. IMPRESSION: No active disease.
[2017-04-13 09:47] VITALS: BP 120/77; PULSE 77; TEMP 97.9
--- NOTE | 2017-04-13 15:38 | CARD ---
APPROVED REPORT EKG Measurement Heart [id number] <Conclusion> Normal sinus rhythm RSR' or QR pattern in V1 suggests right ventricular conduction delay Borderline ECG
== END 2017-04-13 09:47 | disposition home or self-care (01) ==
LOC: ED 06:15
DX: R07.89 Other chest pain (principal); F41.9 Anxiety disorder, unspecified; K21.9 Gastro-esophageal reflux disease without esophagitis

== ENCOUNTER 2017-05-17 12:32 | Emergency (ER) | payer OTHER ==
[2017-05-17 12:32] VITALS: BMI 21.2
[2017-05-17 13:04] VITALS: BP 105/70; PULSE 84; RESP 18; TEMP 98.4; O2SAT 100
--- NOTE | 2017-05-17 13:15 | ED PDOC ---
Arrival/HPI - General Chief Complaint: Flu-like Symptoms Time Seen by Provider: 05/17/17 12:44 Historian: Patient - History of Present Illness Narrative History of Present Illness (Text): 05/17/17 13:09 27 year old male, with past medical history of cardiac arrhythmia, anxiety, depression and GERD, presents to the Emergency department complaining of dizziness prior to arrival. Patient informs taking penicillin, prescribed by Dr. Mayer, with no improvement to symptoms of cough and generalized weakness ongoing for week. Patient states he was driving his car when he suddenly felt dizzy and was unable to continue, bringing him to the Emergency department. Patient denies any fever, chills, nausea, vomiting, diarrhea, abdominal pain, chest pain, shortness of breath or any other complaints. PMD: Dr. Mayer Time/Duration: Prior to Arrival Symptom Onset: Gradual Symptom Course: Improving Activities at Onset: Light Context: Street Past Medical History - Provider Review Nursing Documentation Reviewed: Yes - Past History Past History: No Previous - Infectious Disease Hx of Infectious Diseases: None - Tetanus Immunization Tetanus Immunization: Unknown - Past Medical History Past Medical History: No Previous - Cardiac Hx Cardiac Disorders: Yes Hx Cardiac Arrhythmia: Yes - Pulmonary Hx Respiratory Disorders: No - Neurological Hx Neurological Disorder: No - HEENT Hx HEENT Disorder: No - Renal Hx Renal Disorder: No - Endocrine/Metabolic Hx Endocrine Disorders: No - Hematological/Oncological Hx Blood Disorders: No - Integumentary Hx Dermatological Disorder: No - Musculoskeletal/Rheumatological Hx Musculoskeletal Disorders: No Hx Falls: No - Gastrointestinal Hx Gastrointestinal Disorders: Yes Hx Gastroesophageal Reflux: Yes - Genitourinary/Gynecological Hx Genitourinary Disorders: No - Psychiatric Hx Psychophysiologic Disorder: Yes Hx Anxiety: Yes Hx Depression: Yes Hx Substance Use: No - Past Surgical History Past Surgical History: No Previous - Surgical History Hx Cholecystectomy: Yes - Anesthesia Hx Anesthesia: Yes Hx Anesthesia Reactions: No Hx Malignant Hyperthermia: No - Suicidal Assessment Feels Threatened In Home Enviroment: No Family/Social History - Physician Review Nursing Documentation Reviewed: Yes Family/Social History: Unknown Family HX Smoking Status: Never Smoked Hx Alcohol Use: Yes Frequency of alcohol use: Socially Amount per day: 4 Hx Substance Use: No Hx Substance Use Treatment: No Allergies/Home Meds Allergies/Adverse Reactions: Allergies No Known Allergies Allergy (Verified 05/17/17 13:04) Home Medications: Home Meds Medication Instructions Recorded Confirmed Cefuroxime Axetil [Cefuroxime] 1 tab PO BID 05/17/17 05/17/17 Review of Systems - Physician Review All systems were reviewed & negative as marked: Yes - Review of Systems Constitutional: Normal. absent: Fevers Eyes: Normal ENT: Normal Respiratory: Cough. absent: SOB Cardiovascular: Normal. absent: Chest Pain Gastrointestinal: Normal. absent: Abdominal Pain, Diarrhea, Nausea, Vomiting Genitourinary Male: Normal Musculoskeletal: Normal Skin: Normal Neurological: Dizziness Endocrine: Normal Hemo/Lymphatic: Normal Psychiatric: Normal Physical Exam Vital Signs Reviewed: Yes Vital Signs Temp Pulse Resp BP Pulse Ox 05/17/17 13:01 98.4 F 84 18 105/70 100 Temperature: Afebrile Blood Pressure: Normal Pulse: Regular Respiratory Rate: Normal Appearance: Positive for: Well-Appearing, Non-Toxic, Comfortable Pain Distress: None Mental Status: Positive for: Alert and Oriented X 3 - Systems Exam Head: Present: Atraumatic, Normocephalic Pupils: Present: PERRL Extroacular Muscles: Present: EOMI Conjunctiva: Present: Normal Mouth: Present: Moist Mucous Membranes Neck: Present: Normal Range of Motion Respiratory/Chest: Present: Clear to Auscultation, Good Air Exchange. No: Respiratory Distress, Accessory Muscle Use Cardiovascular: Present: Regular Rate and Rhythm, Normal S1, S2. No: Murmurs Abdomen: Present: Normal Bowel Sounds. No: Tenderness, Distention, Peritoneal Signs Back: Present: Normal Inspection Upper Extremity: Present: Normal Inspection. No: Cyanosis, Edema Lower Extremity: Present: Normal Inspection. No: Edema Neurological: Present: GCS=15, CN II-XII Intact, Speech Normal Skin: Present: Warm, Dry, Normal Color. No: Rashes Psychiatric: Present: Alert, Oriented x 3, Normal Insight, Normal Concentration Medical Decision Making ED Course and Treatment: 05/17/17 13:16 Impression: 27 year old male presents to the Emergency department for dizziness and cough. Plan: -- Chest X-ray -- Reassess and disposition Progress Notes: 05/17/17 13:16 - RAD Interpretation Radiology Orders: 05/17/17 13:07 CHEST TWO VIEWS (PA/LAT) [RAD] Stat - Scribe Statement The provider has reviewed the documentation as recorded by the Scribe Nadine Guzman. All medical record entries made by the Erin were at my direction and personally dictated by me. I have reviewed the chart and agree that the record accurately reflects my personal performance of the history, physical exam, medical decision making, and the department course for this patient. I have also personally directed, reviewed, and agree with the discharge instructions and disposition. Disposition/Present on Arrival - Present on Arrival Any Indicators Present on Arrival: No History of DVT/PE: No History of Uncontrolled Diabetes: No Urinary Catheter: No History of Decub. Ulcer: No History Surgical Site Infection Following: None - Disposition Have Diagnosis and Disposition been Completed?: Yes Diagnosis: Viral illness Disposition: HOME/ ROUTINE Disposition Time: 13:50 Patient Plan: Discharge Condition: STABLE Additional Instructions: continue medications per Dr Mayer. Fluids and rest. See Dr Mayer if symptoms persist. Forms: [employer] (Faroese)
--- NOTE | 2017-05-17 13:44 | RAD ---
HISTORY: COMPARISON: 04/13/2017. TECHNIQUE: Chest PA and lateral FINDINGS: LINES AND TUBES: None. LUNG AND PLEURA: The lungs are well inflated and clear. There is linear atelectasis/scarring in the left lower lobe. HEART AND MEDIASTINUM: The heart is not enlarged. The hilar and mediastinal contours are within normal limits. SKELETAL STRUCTURES: There is mild dextroscoliosis in the thoracic spine, otherwise bony structures are within normal limits for the patient's age. VISUALIZED UPPER ABDOMEN: Normal. OTHER FINDINGS: None. IMPRESSION: No active pulmonary disease.
== END 2017-05-17 14:40 | disposition home or self-care (01) ==
LOC: ED 12:32
DX: B34.9 Viral infection, unspecified (principal)

== ENCOUNTER 2017-06-15 12:08 | Emergency (ER) | payer OTHER ==
[2017-06-15 12:16] VITALS: RESP 18; TEMP 98; BMI 22.8
[2017-06-15] MEDS ORDERED: Sodium Chloride 0.9% 500 ML IV STA (12:48)
--- NOTE | 2017-06-15 12:54 | ED PDOC ---
Arrival/HPI - General Chief Complaint: Dizziness/Lightheaded Time Seen by Provider: 06/15/17 12:47 Historian: Patient - History of Present Illness Narrative History of Present Illness (Text): 06/15/17 12:50 27 year old male, whose past medical history includes chronic chest wall pain and anxiety disorder, presents to the emergency department complaining of dizziness that began 2 weeks ago and worsened today. Patient describes the dizziness as an "off balance" sensation. He repeatedly states he is worried the dizziness may progress to fainting. Patient reports he has seen his PMD and was prescribed Meclizine with no relief and also reports he was diagnosed with an URI 1-2 months ago. He denies any cardiac family history, substance use, excessive caffeine use, or smoking (quit 5 months ago). Patient reports momentary vision change and continued stress factors in his life, but denies any fever, chills, chest pain/abd pain, shortness of breath, nausea, vomiting, diarrhea, appetite change, urinary symptoms, back pain, neck pain, headache, gait change, depression, suicidal/homicidal ideation, visual/auditory hallucination, or any other complaints. PMD: Dr. Mayer hx of prior ED visits for chest pain/palpitations 06/15/17 18:29 Time/Duration: Other (2 weeks ago) Symptom Onset: Gradual Symptom Course: Worsening Activities at Onset: Light Context: Home, Work Past Medical History - Provider Review Nursing Documentation Reviewed: Yes - Travel History Have you recently traveled outside [place] w/in the past 3 mons?: No - Past History Past History: No Previous - Infectious Disease Hx of Infectious Diseases: None - Tetanus Immunization Tetanus Immunization: Unknown - Past Medical History Past Medical History: No Previous - Cardiac Hx Cardiac Disorders: Yes Hx Cardiac Arrhythmia: Yes - Pulmonary Hx Respiratory Disorders: No - Neurological Hx Neurological Disorder: No - HEENT Hx HEENT Disorder: No - Renal Hx Renal Disorder: No - Endocrine/Metabolic Hx Endocrine Disorders: No - Hematological/Oncological Hx Blood Disorders: No - Integumentary Hx Dermatological Disorder: No - Musculoskeletal/Rheumatological Hx Musculoskeletal Disorders: No Hx Falls: No - Gastrointestinal Hx Gastrointestinal Disorders: Yes Hx Gastroesophageal Reflux: Yes - Genitourinary/Gynecological Hx Genitourinary Disorders: No - Psychiatric Hx Psychophysiologic Disorder: Yes Hx Anxiety: Yes Hx Depression: Yes Hx Substance Use: No - Past Surgical History Past Surgical History: No Previous - Surgical History Hx Cholecystectomy: Yes - Anesthesia Hx Anesthesia: Yes Hx Anesthesia Reactions: No Hx Malignant Hyperthermia: No - Suicidal Assessment Feels Threatened In Home Enviroment: No Family/Social History - Physician Review Nursing Documentation Reviewed: Yes Family/Social History: No Known Family HX. denies: CAD/DC Smoking Status: Former Smoker (quit smoking ~ 4-5 months) Hx Alcohol Use: Yes Amount per day: 4 Hx Substance Use: No Hx Substance Use Treatment: No Allergies/Home Meds Allergies/Adverse Reactions: Allergies No Known Allergies Allergy (Verified 05/17/17 13:04) Home Medications: Home Meds Medication Instructions Recorded Confirmed Meclizine HCl [Dramamine Less 25 mg PO HS 06/15/17 06/15/17 Drowsy] Review of Systems - Physician Review All systems were reviewed & negative as marked: Yes - Review of Systems Constitutional: absent: Fevers, Other (Chills) Eyes: Vision Changes ENT: Normal Respiratory: absent: SOB Cardiovascular: absent: Chest Pain Gastrointestinal: absent: Diarrhea, Nausea, Vomiting, Appetite Changes Genitourinary Male: absent: Dysuria, Frequency, Hematuria Musculoskeletal: absent: Back Pain, Neck Pain Neurological: Dizziness. absent: Headache, Gait Changes Psychiatric: absent: Depression, Suicidal Ideation (/homicidal Ideation), Other (visual/auditory hallucination) Physical Exam Vital Signs Reviewed: Yes Vital Signs Temp Pulse Resp BP Pulse Ox 06/15/17 15:30 70 18 129/82 98 06/15/17 12:15 98.0 F 66 18 130/71 97 Temperature: Afebrile Blood Pressure: Normal Pulse: Regular Respiratory Rate: Normal Appearance: Positive for: Well-Appearing, Non-Toxic, Other (slightly uncomfortable, alert/awake, GCS = 15, oriented x 3, NAD, resting in bed, cooperative) Pain Distress: None Mental Status: Positive for: Alert and Oriented X 3 - Systems Exam Head: Present: Atraumatic, Normocephalic Pupils: Present: PERRL, Other (no nystagmus, no photophobia, sclera anicteric, visual field intact b/l) Extroacular Muscles: Present: EOMI Conjunctiva: Present: Normal Ears: Present: Normal Mouth: Present: Moist Mucous Membranes, Other (no drooling/stridor, no dysphonia , uvula/tongue are midline) Pharnyx: Present: Normal Nose (External): Present: Atraumatic Nose (Internal): Present: Normal Inspection Neck: Present: Normal Range of Motion, Trachea Midline, Other (no nuchal rigidity, no meningeal signs, no midline tenderness, no step off, intact ROM). No: MIDLINE TENDERNESS Respiratory/Chest: Present: Clear to Auscultation, Good Air Exchange, Other ( CTA b/l, no w/r/r, no accessory muscle use noted, no tachypenia). No: Respiratory Distress, Accessory Muscle Use Cardiovascular: Present: Regular Rate and Rhythm, Normal S1, S2. No: Murmurs Abdomen: Present: Normal Bowel Sounds, Other (well nourished male, no focal tenderness, no tony's sign, no mcburney's point tenderness). No: Tenderness, Distention, Peritoneal Signs Back: Present: Normal Inspection. No: CVA Tenderness, Midline Tenderness Upper Extremity: Present: Normal Inspection, Normal ROM, NORMAL PULSES, Neurovascularly Intact, Capillary Refill < 2s. No: Cyanosis, Edema Lower Extremity: Present: Normal Inspection, NORMAL PULSES, Normal ROM, Neurovascularly Intact, Capillary Refill < 2 s. No: Edema Neurological: Present: GCS=15, CN II-XII Intact, Speech Normal Skin: Present: Warm, Dry, Normal Color, Other (cap refill < 1sec, no ulcerations , no petechiae). No: Rashes Psychiatric: Present: Alert, Oriented x 3, Normal Insight, Normal Concentration Medical Decision Making ED Course and Treatment: 06/15/17 12:50 Impression: 27 year old male presents complaining of worsening dizziness described as an "off balance" sensation that began 2 weeks ago. Patient reports slight vision changes. I have considered all differential diagnoses regarding patients chief medical complaints/clinical findings which include but are not limited to: non-specific dizziness Plan: -- CT Head w/o contrast -- EKG -- Labs -- Chest X-ray Two views -- IV Fluids -- Urinalysis -- Reassess and disposition Prior Visits: Notes and results from previous visits were reviewed. Patient last seen in the ED on 04/13/17 presents complaining of chest pain that began last night. Patient was discharged. 1400 pt states his symptoms remains but not exacerbated currently pt revealed to me that since he had been on Valium 5mg QD for the last ~ 4 months (for anxiety prescribed by Dr mayer), and with him deciding over the last 1 week wanting to go off valium, pt states his dizziness had worsened; pt states no seizures, no gross headaches; i suggests to pt that he should resume his valium as benzo w/d can be detrimental and lead to worse medical symptoms I Spoke to Dr Harper/ux consultant for Dr mayer, who is made aware of pt's ED medical complaint/presentation, and agrees with ED mgt/dx/recommendations; will notify Dr Mayer of pt's ED visit; agrees with allowing patient to be discharged home pt is made aware of his medical results pt will f/u as directed pt will be discharged home Re-evaluation Time: 15:08 Reassessment Condition: Unchanged - Lab Interpretations Lab Results: 06/15/17 12:33 06/15/17 13:19 Lab Results 06/15/17 13:20: Urine Color Yellow, Urine Appearance Clear, Urine pH 6.0, Ur Specific Purlear 1.010, Urine Protein Negative, Urine Glucose (UA) Negative, Urine Ketones Negative, Urine Blood Negative, Urine Nitrate Negative, Urine Bilirubin Negative, Urine Urobilinogen 0.2, Ur Leukocyte Esterase Negative 06/15/17 13:19: TSH 3rd Generation 1.27 06/15/17 13:19: Sodium 139, Potassium 4.4, Chloride 103, Carbon Dioxide 29, Anion Gap 12, BUN 20, Creatinine 0.9, Est GFR ( Amer) > 60, Est GFR (Non- Af Amer) > 60, Random Glucose 91, Calcium 10.3, Phosphorus 3.7, Magnesium 2.0, Total Bilirubin 0.5, AST 27, ALT 43, Alkaline Phosphatase 70, Total Protein 7.1 , Albumin 4.4, Globulin 2.7, Albumin/Globulin Ratio 1.7 06/15/17 12:33: WBC 4.2 L D, RBC 5.63, Hgb 15.3, Hct 44.8, MCV 79.6 L, MCH 27.2 , MCHC 34.2, RDW 12.6, Plt Count 172, MPV 10.6, Gran % 48.6 L, Lymph % (Auto) 40.7 H, [place] % (Auto) 8.6 H, Eos % (Auto) 1.9, Baso % (Auto) 0.2, Gran # 2.03, Lymph # (Auto) 1.7, [place] # (Auto) 0.4, Eos # (Auto) 0.1, Baso # (Auto) 0.01 I have reviewed the lab results: Yes Interpretation: All labs normal - RAD Interpretation Narrative RAD Interpretations (Text): PROCEDURE: CT HEAD WITHOUT CONTRAST. Dictator : Gia Jain MD Report Date : 06/15/2017 13:33:43 IMPRESSION: Normal CT of the Head. 06/15/17 15:09 CXR - NAD, mild scoliosis, as read by me Radiology Orders: 06/15/17 12:47 HEAD W/O CONTRAST [CT] Stat 06/15/17 12:48 CHEST TWO VIEWS (PA/LAT) [RAD] Stat Winder Helper: ED Physician, Radiologist - EKG Interpretation EKG Interpretation (Text): 06/15/17 15:09 NSR at 65 bpm, normal axis, no ectopy, no st-t changes, BORDERLINE EKG; no gross changes compare with old ekg 04/2017 Interpreted by ED Physician: Yes Type: 12 lead EKG Comparison: Similar to previous EKG - Medication Orders Current Medication Orders: Discontinued Medications Sodium Chloride (Sodium Chloride 0.9%) 500 mls @ 999 mls/hr IV .Q31M STA Stop: 06/15/17 13:18 Last Admin: 06/15/17 13:10 Dose: 999 mls/hr eMAR Start Stop Document 06/15/17 13:10 HI (Rec: 06/15/17 13:10 HI [id number]) Intravenous Solution Start Date 06/15/17 Start Time 13:10 - Scribe Statement The provider has reviewed the documentation as recorded by the Erin Romero Provider Scribe Attestation: All medical record entries made by the Scribbello were at my direction and personally dictated by me. I have reviewed the chart and agree that the record accurately reflects my personal performance of the history, physical exam, medical decision making, and the department course for this patient. I have also personally directed, reviewed, and agree with the discharge instructions and disposition. Disposition/Present on Arrival - Present on Arrival Any Indicators Present on Arrival: No History of DVT/PE: No History of Uncontrolled Diabetes: No Urinary Catheter: No History of Decub. Ulcer: No History Surgical Site Infection Following: None - Disposition Have Diagnosis and Disposition been Completed?: Yes Diagnosis: Dizziness, nonspecific Disposition: HOME/ ROUTINE Disposition Time: 15:11 Patient Plan: Discharge Condition: STABLE Discharge Instructions (ExitCare): Dizziness, Nonvertigo, (DC) Print Language: SAUDI ARABIAN Additional Instructions: Make sure to see your doctor in 1-2 days DRINK PLENTY OF FLUIDS take your medications as prescribed RETURN TO ED IF worse pain, cant breath, persistent vomiting, high fever >101- 102 for hours, altered behavior, unable to urinate, slurr speech, arm/leg weakness, cant walk, heavy/persistent bleeding, passing out, chest pain, or other medical emergencies Referrals: Shannon Mayer MD [Primary Care Provider] - Follow up with primary Forms: [employer] (Serbian)
[2017-06-15 13:23] LABS: BASO # 0.01 K/mm3 (0.0-2.0); BASO % 0.2 % (0.0-3.0); EOS # 0.1 (0.0-0.7); EOS % 1.9 % (1.5-5.0); GRAN # 2.03 (1.4-6.5); GRAN % 48.6 % (50.0-68.0); HEMOGLOBIN 15.3 g/dL (14.0-18.0); LYMPH # 1.7 (1.2-3.4); LYMPH % 40.7 % (22.0-35.0); MEAN CELL VOLUME 79.6 fl (80.0-105.0); MEAN CORPUSCULAR HEMOGLOBIN 27.2 pg (25.0-35.0); MEAN CORPUSCULAR HGB CONC 34.2 g/dl (31.0-37.0); MEAN PLATELET VOLUME 10.6 fl (7.0-11.0); MONO # 0.4 (0.1-0.6); MONO % 8.6 % (1.0-6.0); RBC 5.63 10^6/uL (3.5-6.1); RED CELL DISTRIBUTION WIDTH 12.6 % (11.5-14.5); WHITE BLOOD COUNT 4.2 10^3/ul (4.5-11.0)
[2017-06-15 13:24] LABS: URINE BILIRUBIN NEGATIVE (NEGATIVE); URINE BLOOD NEGATIVE (NEGATIVE); URINE GLUCOSE (UA) NEGATIVE (NEGATIVE); URINE LEUKOCYTE ESTERASE NEGATIVE Leu/uL (NEGATIVE); URINE PROTEIN NEGATIVE mg/dL (<30 mg/dL); URINE UROBILINOGEN 0.2 E.U./dL (<1 E.U./dL)
[2017-06-15 13:25] LABS: URINE APPEARANCE CLEAR (CLEAR); URINE COLOR YELLOW (YELLOW)
--- NOTE | 2017-06-15 13:35 | CT ---
PROCEDURE: CT HEAD WITHOUT CONTRAST. HISTORY: worsening dizziness/off balance feeling, no trauma COMPARISON: None available. TECHNIQUE: Axial computed tomography images were obtained through the head/brain without intravenous contrast. Radiation dose: Total exam DLP = 930.54 mGy-cm. This CT exam was performed using one or more of the following dose reduction techniques: Automated exposure control, adjustment of the mA and/or kV according to patient size, and/or use of iterative reconstruction technique. FINDINGS: HEMORRHAGE: No intracranial hemorrhage. BRAIN: No mass effect or edema. No atrophy or chronic microvascular ischemic changes. VENTRICLES: Unremarkable. No hydrocephalus. CALVARIUM: Unremarkable. PARANASAL SINUSES: Unremarkable as visualized. No significant inflammatory changes. MASTOID AIR CELLS: Unremarkable as visualized. No inflammatory changes. OTHER FINDINGS: None. IMPRESSION: Normal CT of the Head.
[2017-06-15 13:47] LABS: ALB/GLOB RATIO 1.7 (1.1-1.8); ALBUMIN 4.4 g/dL (3.0-4.8); ALT/SGPT 43 U/L (7-56); AST/SGOT 27 U/L (17-59); BLOOD UREA NITROGEN 20 mg/dL (7-21); CALCIUM 10.3 mg/dL (8.4-10.5); GFR AFRICAN-AMERICAN > 60; GFR NON-AFRICAN AMERICAN > 60
[2017-06-15 15:42] VITALS: BP 129/82; PULSE 70; O2SAT 98
--- NOTE | 2017-06-15 17:09 | RAD ---
HISTORY: dizziness COMPARISON: Comparison is made with 05/17/2017 TECHNIQUE: Chest PA and lateral FINDINGS: LUNGS: No active pulmonary disease. PLEURA: No significant pleural effusion identified. No pneumothorax apparent. CARDIOVASCULAR: Normal. OSSEOUS STRUCTURES: No significant abnormalities. VISUALIZED UPPER ABDOMEN: Normal. OTHER FINDINGS: None. IMPRESSION: No active disease.
--- NOTE | 2017-06-16 10:35 | CARD ---
APPROVED REPORT EKG Measurement Heart [id number] <Conclusion> Normal sinus rhythm RVCD LVH by voltage, could be a normal variant Normal ECG No change
== END 2017-06-15 15:30 | disposition home or self-care (01) ==
LOC: ED 12:08
DX: R42 Dizziness and giddiness (principal); Z87.891 Personal history of nicotine dependence
CPT/HCPCS: 70450; 71046; 80053; 81003; 83735; 84100; 84443; 85025; 93005; 99285; J7040

== ENCOUNTER 2017-07-20 12:03 | Emergency (ER) | payer OTHER ==
--- NOTE | 2017-07-20 12:58 | ED PDOC ---
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 07/20/17 12:55 Time/Duration: 24 hours Symptom Onset: Gradual Symptom Course: Unchanged Quality: Aching Severity Level: 1 Activities at Onset: Rest Context: Sitting Past Medical History - Provider Review Nursing Documentation Reviewed: Yes - Travel History Have you recently traveled outside [place] w/in the past 3 mons?: No - Past History Past History: No Previous - Infectious Disease Hx of Infectious Diseases: None - Tetanus Immunization Tetanus Immunization: Unknown - Past Medical History Past Medical History: No Previous - Cardiac Hx Cardiac Disorders: Yes Hx Cardiac Arrhythmia: Yes - Pulmonary Hx Respiratory Disorders: No - Neurological Hx Neurological Disorder: No - HEENT Hx HEENT Disorder: No - Renal Hx Renal Disorder: No - Endocrine/Metabolic Hx Endocrine Disorders: No - Hematological/Oncological Hx Blood Disorders: No - Integumentary Hx Dermatological Disorder: No - Musculoskeletal/Rheumatological Hx Musculoskeletal Disorders: No Hx Falls: No - Gastrointestinal Hx Gastrointestinal Disorders: Yes Hx Gastroesophageal Reflux: Yes - Genitourinary/Gynecological Hx Genitourinary Disorders: No - Psychiatric Hx Psychophysiologic Disorder: Yes Hx Anxiety: Yes Hx Depression: Yes Hx Substance Use: No - Past Surgical History Past Surgical History: No Previous - Surgical History Hx Cholecystectomy: Yes - Anesthesia Hx Anesthesia: Yes Hx Anesthesia Reactions: No Hx Malignant Hyperthermia: No - Suicidal Assessment Feels Threatened In Home Enviroment: No Family/Social History - Physician Review Nursing Documentation Reviewed: Yes Family/Social History: No Known Family HX Smoking Status: Former Smoker (quit smoking ~ 4-5 months) Hx Alcohol Use: Yes Amount per day: 4 Hx Substance Use: No Hx Substance Use Treatment: No Allergies/Home Meds Allergies/Adverse Reactions: Allergies No Known Allergies Allergy (Verified 07/20/17 13:44) Home Medications: Home Meds Medication Instructions Recorded Confirmed Meclizine HCl [Dramamine Less 25 mg PO HS 06/15/17 06/15/17 Drowsy] Review of Systems - Review of Systems Constitutional: Normal Eyes: Normal ENT: Normal Respiratory: Normal Cardiovascular: Chest Pain Gastrointestinal: Normal Genitourinary Male: Normal Musculoskeletal: Normal Skin: Normal Neurological: Dizziness Endocrine: Normal Hemo/Lymphatic: Normal Psychiatric: Normal Physical Exam Vital Signs Reviewed: Yes Vital Signs Temp Pulse Resp BP Pulse Ox 07/20/17 14:40 97.9 F 71 19 120/81 100 07/20/17 14:20 97.8 F 89 17 99 Appearance: Positive for: Well-Appearing, Non-Toxic, Comfortable Pain Distress: None Mental Status: Positive for: Alert and Oriented X 3 - Systems Exam Head: Present: Atraumatic, Normocephalic Pupils: Present: PERRL Extroacular Muscles: Present: EOMI Conjunctiva: Present: Normal Ears: Present: Normal Mouth: Present: Moist Mucous Membranes Pharnyx: Present: Normal Nose (External): Present: Atraumatic Nose (Internal): Present: Normal Inspection Neck: Present: Normal Range of Motion Respiratory/Chest: Present: Clear to Auscultation, Good Air Exchange Cardiovascular: Present: Regular Rate and Rhythm Abdomen: No: Tenderness, Distention, Normal Bowel Sounds, Peritoneal Signs, Rebound, Guarding, McBurney's Point Tender, Rovsing's Sign Present, Hernias, Feeding Tubes, Ostomy Tubes, Mass/Organomegaly, Scars, Other Back: Present: Normal Inspection Upper Extremity: Present: Normal Inspection Lower Extremity: Present: Normal Inspection Neurological: Present: GCS=15, CN II-XII Intact, Speech Normal, Motor Func Grossly Intact Skin: Present: Warm, Normal Color Psychiatric: Present: Alert, Oriented x 3, Normal Insight, Normal Concentration Medical Decision Making ED Course and Treatment: you were treated in the ED today for hx of betablocker useage for palpitations, and having chest pain with dizziness/lightheadedness and otherwise without any nausea/vomiting/headache/dizziness/difficulty breathing/chest pain/abdomen pain/ numbness/tingling/loss of limb function/pain with urination/blood clots/cancer/ drug use 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 no thoughts to harm yourself or others or hallucinations. You were otherwise breathing easily, pink moist lips, smiling and talking easily with your fiance, good strength/sensation, alert/oriented, walking easily, clear lungs, no abdomen tenderness, no fever temp 97.8, stable heart rate 89, stable breathing rate 17, excellent oxygen level 98% room air, elevated blood pressure 120/81 which we recommend repeat in 2-3 days primary care office to determine further treatment, you have blood tests no infection count 4, stable blood level hemoglobin 15/platelets 182, stable chemistry, except mildly elevated ALT 58, elevated magnesium 2.3, heart blood test negative less than 0.01, low risk of blood clot negative 109, chest xray radiology no active disease, ECG normal sinus rhythm similar to 06/15/17, aspirin, observation done in the ED with improvement, counselled to monitor symptoms and thus discharged home with fiance. 1. Recommend follow-up primary care 1-2days to review symptoms, recheck magnesium to ensure improvement, review medications, referral to cardiology clinic to review your symptoms, referral to gastroenterology clinic for elevated liver test ALT to ensure no complications, referral to mental health clinic to review symptoms. 4. If any worsening pain, fever, chills, nausea, vomiting, difficulty breathing, numbness, loss of limb function, pain with urination or any medical condition then return to the ED. Reassessment Condition: Re-examined, Improved - Lab Interpretations Lab Results: 07/20/17 13:20 07/20/17 13:20 Lab Results 07/20/17 13:20: PT 11.9, INR 1.03, APTT 30.7, D-Dimer, Quantitative 109 07/20/17 13:20: Sodium 143, Potassium 4.4, Chloride 104, Carbon Dioxide 29, Anion Gap 15, BUN 19, Creatinine 1.0, Est GFR ( Amer) > 60, Est GFR (Non- Af Amer) > 60, Random Glucose 82, Calcium 10.1, Magnesium 2.3 H, Total Bilirubin 0.3, AST 35, ALT 58 H, Alkaline Phosphatase 65, Lactate Dehydrogenase 395, Total Creatine Kinase 59, Troponin I < 0.01, Total Protein 7.2, Albumin 4.6 , Globulin 2.6, Albumin/Globulin Ratio 1.8 07/20/17 13:20: WBC 4.1 L, RBC 5.65, Hgb 15.1, Hct 45.0, MCV 79.6 L, MCH 26.7, MCHC 33.6, RDW 13.1, Plt Count 182, MPV 10.2, Gran % 46.0 L, Lymph % (Auto) 44.0 H, [place] % (Auto) 7.1 H, Eos % (Auto) 2.7, Baso % (Auto) 0.2, Gran # 1.89, Lymph # (Auto) 1.8, [place] # (Auto) 0.3, Eos # (Auto) 0.1, Baso # (Auto) 0.01 I have reviewed the lab results: Yes - RAD Interpretation Radiology Orders: 07/20/17 12:53 CHEST PORTABLE [RAD] Stat - EKG Interpretation Interpreted by ED Physician: Yes (NSR, flipped t waves avr, v1.) Type: 12 lead EKG - Medication Orders Current Medication Orders: Discontinued Medications Aspirin (Aspirin) 325 mg PO STAT STA Stop: 07/20/17 12:53 Last Admin: 07/20/17 13:37 Dose: 325 mg Disposition/Present on Arrival - Present on Arrival Any Indicators Present on Arrival: No History of DVT/PE: No History of Uncontrolled Diabetes: No Urinary Catheter: No History Surgical Site Infection Following: None - Disposition Have Diagnosis and Disposition been Completed?: Yes Diagnosis: Chest pain Disposition: HOME/ ROUTINE Disposition Time: 14:57 Patient Plan: Discharge Condition: IMPROVED Discharge Instructions (ExitCare): Chest Pain (ED) Additional Instructions: you were treated in the ED today for hx of betablocker useage for palpitations, and having chest pain with dizziness/lightheadedness and otherwise without any nausea/vomiting/headache/dizziness/difficulty breathing/chest pain/abdomen pain/ numbness/tingling/loss of limb function/pain with urination/blood clots/cancer/ drug use 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 no thoughts to harm yourself or others or hallucinations. You were otherwise breathing easily, pink moist lips, smiling and talking easily with your fiance, good strength/sensation, alert/oriented, walking easily, clear lungs, no abdomen tenderness, no fever temp 97.8, stable heart rate 89, stable breathing rate 17, excellent oxygen level 98% room air, elevated blood pressure 120/81 which we recommend repeat in 2-3 days primary care office to determine further treatment, you have blood tests no infection count 4, stable blood level hemoglobin 15/platelets 182, stable chemistry, except mildly elevated ALT 58, elevated magnesium 2.3, heart blood test negative less than 0.01, low risk of blood clot negative 109, chest xray radiology no active disease, ECG normal sinus rhythm similar to 06/15/17, aspirin, observation done in the ED with improvement, counselled to monitor symptoms and thus discharged home with fiance. 1. Recommend follow-up primary care 1-2days to review symptoms, recheck magnesium to ensure improvement, review medications, referral to cardiology clinic to review your symptoms, referral to gastroenterology clinic for elevated liver test ALT to ensure no complications, referral to mental health clinic to review symptoms. 4. If any worsening pain, fever, chills, nausea, vomiting, difficulty breathing, numbness, loss of limb function, pain with urination or any medical condition then return to the ED.
--- NOTE | 2017-07-20 13:09 | RAD ---
HISTORY: 27yoM, with chest pain COMPARISON: Comparison chest 06/15/2017 FINDINGS: LUNGS: No active pulmonary disease. PLEURA: No significant pleural effusion identified, no pneumothorax apparent. CARDIOVASCULAR: Normal. OSSEOUS STRUCTURES: Minor scoliosis mid thoracic spine convex left VISUALIZED UPPER ABDOMEN: Normal. OTHER FINDINGS: None. IMPRESSION: No active disease.
[2017-07-20 13:44] LABS: BASO # 0.01 K/mm3 (0.0-2.0); BASO % 0.2 % (0.0-3.0); EOS # 0.1 (0.0-0.7); EOS % 2.7 % (1.5-5.0); GRAN # 1.89 (1.4-6.5); HEMOGLOBIN 15.1 g/dL (14.0-18.0); LYMPH # 1.8 (1.2-3.4); MEAN CELL VOLUME 79.6 fl (80.0-105.0); MEAN CORPUSCULAR HEMOGLOBIN 26.7 pg (25.0-35.0); MEAN CORPUSCULAR HGB CONC 33.6 g/dl (31.0-37.0); MEAN PLATELET VOLUME 10.2 fl (7.0-11.0); MONO # 0.3 (0.1-0.6); MONO % 7.1 % (1.0-6.0); RBC 5.65 10^6/uL (3.5-6.1); RED CELL DISTRIBUTION WIDTH 13.1 % (11.5-14.5); WHITE BLOOD COUNT 4.1 10^3/ul (4.5-11.0)
[2017-07-20 13:45] VITALS: BMI 21.5
[2017-07-20 13:53] LABS: INR 1.03 (0.93-1.08); PARTIAL THROMBOPLASTIN TIME 30.7 Seconds (25.1-36.5); PROTHROMBIN TIME 11.9 SECONDS (9.4-12.5)
[2017-07-20 14:07] LABS: ALB/GLOB RATIO 1.8 (1.1-1.8); ALBUMIN 4.6 g/dL (3.0-4.8); ALT/SGPT 58 U/L (7-56); AST/SGOT 35 U/L (17-59); BLOOD UREA NITROGEN 19 mg/dL (7-21); CALCIUM 10.1 mg/dL (8.4-10.5); GFR AFRICAN-AMERICAN > 60; GFR NON-AFRICAN AMERICAN > 60
[2017-07-20 14:29] LABS: TROPONIN I < 0.01 ng/mL
[2017-07-20 14:41] VITALS: BP 120/81; PULSE 71; TEMP 97.9
[2017-07-20 14:56] LABS: PH,URINE 6.5 (4.7-8.0); URINE BILIRUBIN NEGATIVE (NEGATIVE); URINE BLOOD NEGATIVE (NEGATIVE); URINE GLUCOSE (UA) NEGATIVE (NEGATIVE); URINE LEUKOCYTE ESTERASE NEGATIVE Leu/uL (NEGATIVE); URINE PROTEIN NEGATIVE mg/dL (<30 mg/dL); URINE UROBILINOGEN 0.2 E.U./dL (<1 E.U./dL)
[2017-07-20 15:04] LABS: URINE APPEARANCE CLEAR (CLEAR); URINE COLOR COLORLESS (YELLOW)
[2017-07-20 15:11] VITALS: RESP 18; O2SAT 99
--- NOTE | 2017-07-20 23:39 | CARD ---
APPROVED REPORT EKG Measurement Heart [id number] ID [id number] <Conclusion> Normal sinus rhythm Normal ECG
== END 2017-07-20 15:11 | disposition home or self-care (01) ==
LOC: ED 12:03
DX: R07.9 Chest pain, unspecified (principal); I49.9 Cardiac arrhythmia, unspecified; K21.9 Gastro-esophageal reflux disease without esophagitis

== ENCOUNTER 2017-07-27 18:59 | Emergency (ER) | payer OTHER ==
[2017-07-27 19:00] VITALS: BMI 21.5
[2017-07-27 19:19] VITALS: O2SAT 99
--- NOTE | 2017-07-27 19:39 | ED PDOC ---
Arrival/HPI - General Chief Complaint: Dizziness/Lightheaded Time Seen by Provider: 07/27/17 19:08 Historian: Patient, Partner - History of Present Illness Narrative History of Present Illness (Text): 07/27/17 19:33 Pt is a 27 yr old male with significant PMH of chest pain and heart palpitations , presents to the Emergency department for dizziness and heart palpitations since this morning while sitting at home. Pt reports feeling lightheaded at times and off balance and is frustrated that despite all the tests he's had nothing is found. Pt is currently being treated for anxiety by PMD, Dr. Mayer. Says he takes Metoprolol 25 mg and Valium 5 mg daily. Reports that 6 months ago, he quit smoking, denies taking stimulants, caffeine, or ETOH. His last evaluation for chest pain was 07/20/17 whereby all tests were withing normal levels and baseline. Denies, nausea, vomiting, chest pain, fever, epigastric or back [pain, radiating pain, or any other complaint Time/Duration: 4-6 hours Symptom Onset: Sudden Symptom Course: Improving Quality: Pressure Severity Level: 1 Activities at Onset: Rest Context: Sitting, Home Past Medical History - Provider Review Nursing Documentation Reviewed: Yes - Travel History Have you recently traveled outside [place] w/in the past 3 mons?: No - Past History Past History: No Previous - Infectious Disease Hx of Infectious Diseases: None - Tetanus Immunization Tetanus Immunization: Unknown - Past Medical History Past Medical History: No Previous - Cardiac Hx Cardiac Disorders: Yes Hx Cardiac Arrhythmia: Yes - Pulmonary Hx Respiratory Disorders: No - Neurological Hx Neurological Disorder: No - HEENT Hx HEENT Disorder: No - Renal Hx Renal Disorder: No - Endocrine/Metabolic Hx Endocrine Disorders: No - Hematological/Oncological Hx Blood Disorders: No - Integumentary Hx Dermatological Disorder: No - Musculoskeletal/Rheumatological Hx Musculoskeletal Disorders: No Hx Falls: No - Gastrointestinal Hx Gastrointestinal Disorders: Yes Hx Gastroesophageal Reflux: Yes - Genitourinary/Gynecological Hx Genitourinary Disorders: No - Psychiatric Hx Psychophysiologic Disorder: Yes Hx Anxiety: Yes Hx Depression: Yes Hx Substance Use: No - Past Surgical History Past Surgical History: No Previous - Surgical History Hx Cholecystectomy: Yes - Anesthesia Hx Anesthesia: Yes Hx Anesthesia Reactions: No Hx Malignant Hyperthermia: No - Suicidal Assessment Feels Threatened In Home Enviroment: No Family/Social History - Physician Review Nursing Documentation Reviewed: Yes Family/Social History: Unknown Family HX Smoking Status: Former Smoker Hx Alcohol Use: Yes Amount per day: 4 Hx Substance Use: No Hx Substance Use Treatment: No Allergies/Home Meds Allergies/Adverse Reactions: Allergies No Known Allergies Allergy (Verified 07/27/17 19:19) Review of Systems - Review of Systems Constitutional: Fatigue Eyes: Normal ENT: Normal Respiratory: SOB Cardiovascular: Palpitations Gastrointestinal: Normal. absent: Abdominal Pain Genitourinary Male: Normal Musculoskeletal: Normal. absent: Arthralgias, Back Pain, Neck Pain Skin: Normal Neurological: Normal Endocrine: Normal Hemo/Lymphatic: Normal Psychiatric: Anxiety Physical Exam Vital Signs Reviewed: Yes Vital Signs Pulse Resp BP Pulse Ox 07/27/17 19:16 92 H 20 125/76 99 Temperature: Afebrile Blood Pressure: Normal Pulse: Regular Respiratory Rate: Normal Appearance: Positive for: Well-Appearing, Non-Toxic, Comfortable Pain Distress: Mild Mental Status: Positive for: Alert and Oriented X 3 - Systems Exam Head: Present: Atraumatic, Normocephalic Pupils: Present: PERRL Extroacular Muscles: Present: EOMI Conjunctiva: Present: Normal Mouth: Present: Moist Mucous Membranes Neck: Present: Normal Range of Motion Respiratory/Chest: Present: Clear to Auscultation, Good Air Exchange. No: Respiratory Distress, Accessory Muscle Use Cardiovascular: Present: Regular Rate and Rhythm, Normal S1, S2. No: Murmurs Abdomen: No: Tenderness, Distention, Peritoneal Signs Back: Present: Normal Inspection Upper Extremity: Present: Normal Inspection. No: Cyanosis, Edema Lower Extremity: Present: Normal Inspection. No: Edema Neurological: Present: GCS=15, CN II-XII Intact, Speech Normal Skin: Present: Warm, Dry, Normal Color. No: Rashes Psychiatric: Present: Alert, Oriented x 3, Normal Insight, Normal Concentration Medical Decision Making ED Course and Treatment: 07/27/17 19:40 Pt is a 27 yr old male with significant PMH of chest pain and heart palpitations , presents to the Emergency department for dizziness and heart palpitations since this morning while sitting at home. Pt states that mother has MVP; pt had recent stress test and possible echocardiogram; PE findings are benign Plan Labs and Urinalysis, Cardiac ISO ECG, portable Chest X-ray Assess and dispo Progress Note 07/27/17 20:02 ECG reveals NSR with a rate of 68 07/27/17 20:52 All labs wnl and at baseline DW pt and advised to continue taking BB and Valium VSS on dc - Lab Interpretations Lab Results: 07/27/17 19:47 07/27/17 19:47 Lab Results 07/27/17 20:12: Urine Color Colorless, Urine Appearance Clear, Urine pH 6.0, Ur Specific [place] <= 1.005, Urine Protein Negative, Urine Glucose (UA) Negative, Urine Ketones Negative, Urine Blood Negative, Urine Nitrate Negative, Urine Bilirubin Negative, Urine Urobilinogen 0.2, Ur Leukocyte Esterase Negative 07/27/17 19:47: Sodium 145, Potassium 3.7, Chloride 104, Carbon Dioxide 27, Anion Gap 18, BUN 19, Creatinine 0.9, Est GFR ( Amer) > 60, Est GFR (Non- Af Amer) > 60, Random Glucose 109, Calcium 9.4, Magnesium 2.1, Total Bilirubin 0.2, AST 30, ALT 35, Alkaline Phosphatase 59, Lactate Dehydrogenase 373, Total Creatine Kinase 49, Troponin I < 0.01, Total Protein 6.8, Albumin 4.3, Globulin 2.5, Albumin/Globulin Ratio 1.8 07/27/17 19:47: WBC 5.7 D, RBC 5.66, Hgb 15.2, Hct 44.6, MCV 78.8 L, MCH 26.9, MCHC 34.1, RDW 12.9, Plt Count 226, MPV 10.3, Gran % 64.1, Lymph % (Auto) 28.6, [place] % (Auto) 5.7, Eos % (Auto) 1.4 L, Baso % (Auto) 0.2, Gran # 3.63, Lymph # ( Auto) 1.6, [place] # (Auto) 0.3, Eos # (Auto) 0.1, Baso # (Auto) 0.01 - RAD Interpretation Radiology Orders: 07/27/17 19:27 CHEST PORTABLE [RAD] Stat - EKG Interpretation Interpreted by ED Physician: Yes (NSR with a rate of 68) Disposition/Present on Arrival - Present on Arrival Any Indicators Present on Arrival: Yes History of DVT/PE: No History of Uncontrolled Diabetes: No Urinary Catheter: No History of Decub. Ulcer: No History Surgical Site Infection Following: None - Disposition Have Diagnosis and Disposition been Completed?: Yes Diagnosis: Anxiety about health, Heart palpitations Disposition: HOME/ ROUTINE Disposition Time: 20:55 Patient Plan: Discharge Patient Problems: Current Active Problems Problem Status Onset Mitral valve prolapse syndrome Acute Anxiety about health Acute Condition: GOOD Discharge Instructions (ExitCare): Mitral Valve Prolapse, Anxiety, Adult (DC), Palpitations Additional Instructions: Osmin, thank you for letting us take care of you today. Your provider was PARMJIT bAernathy. You were treated for palpitations and anxiety. The emergency medical care you received today was directed at your acute symptoms. If you were prescribed any medication, please fill it and take as directed. It may take several days for your symptoms to resolve. Return to the Emergency Department if your symptoms worsen, do not improve, or if you have any other problems. Ask your doctor about getting an echocardiogram, if you have not had one yet. Please contact your doctor or call one of the physicians/clinics you have been referred to that are listed on the Patient Visit Information form that is included in your discharge packet. Bring any paperwork you were given at discharge with you along with any medications you are taking to your follow up visit. Our treatment cannot replace ongoing medical care by a primary care provider (PCP) outside of the emergency department. Thank you for allowing the [facility] team to be part of your care today. Referrals: Shannon Mayer MD [Primary Care Provider] - Follow up with primary Forms: [employer] (Italian), WORK NOTE
[2017-07-27 20:03] LABS: BASO # 0.01 K/mm3 (0.0-2.0); BASO % 0.2 % (0.0-3.0); EOS # 0.1 (0.0-0.7); EOS % 1.4 % (1.5-5.0); GRAN # 3.63 (1.4-6.5); GRAN % 64.1 % (50.0-68.0); HEMOGLOBIN 15.2 g/dL (14.0-18.0); LYMPH # 1.6 (1.2-3.4); LYMPH % 28.6 % (22.0-35.0); MEAN CELL VOLUME 78.8 fl (80.0-105.0); MEAN CORPUSCULAR HEMOGLOBIN 26.9 pg (25.0-35.0); MEAN CORPUSCULAR HGB CONC 34.1 g/dl (31.0-37.0); MEAN PLATELET VOLUME 10.3 fl (7.0-11.0); MONO # 0.3 (0.1-0.6); MONO % 5.7 % (1.0-6.0); RBC 5.66 10^6/uL (3.5-6.1); RED CELL DISTRIBUTION WIDTH 12.9 % (11.5-14.5); WHITE BLOOD COUNT 5.7 10^3/ul (4.5-11.0)
[2017-07-27 20:22] LABS: URINE BILIRUBIN NEGATIVE (NEGATIVE); URINE BLOOD NEGATIVE (NEGATIVE); URINE GLUCOSE (UA) NEGATIVE (NEGATIVE); URINE LEUKOCYTE ESTERASE NEGATIVE Leu/uL (NEGATIVE); URINE PROTEIN NEGATIVE mg/dL (<30 mg/dL); URINE UROBILINOGEN 0.2 E.U./dL (<1 E.U./dL)
[2017-07-27 20:23] LABS: ALB/GLOB RATIO 1.8 (1.1-1.8); ALBUMIN 4.3 g/dL (3.0-4.8); ALT/SGPT 35 U/L (7-56); AST/SGOT 30 U/L (17-59); BLOOD UREA NITROGEN 19 mg/dL (7-21); CALCIUM 9.4 mg/dL (8.4-10.5); GFR AFRICAN-AMERICAN > 60; GFR NON-AFRICAN AMERICAN > 60
[2017-07-27 20:23] LABS: URINE APPEARANCE CLEAR (CLEAR); URINE COLOR COLORLESS (YELLOW)
[2017-07-27 20:26] LABS: TROPONIN I < 0.01 ng/mL
[2017-07-27 21:44] VITALS: BP 121/70; PULSE 71; RESP 18
--- NOTE | 2017-07-28 09:27 | RAD ---
HISTORY: Palpitations COMPARISON: 07/20/2017 FINDINGS: LUNGS: No new infiltrate. Hyperinflation of the lungs is stable. PLEURA: No significant pleural effusion identified, no pneumothorax apparent. CARDIOVASCULAR: Normal. OSSEOUS STRUCTURES: Scoliosis is noted. This is unchanged from prior study. VISUALIZED UPPER ABDOMEN: Normal. OTHER FINDINGS: None. IMPRESSION: No new focal infiltrate. Hyperinflation of the lungs.
--- NOTE | 2017-07-28 22:46 | CARD ---
APPROVED REPORT EKG Measurement Heart [id number] ID [id number] <Conclusion> Normal sinus rhythm Normal ECG
== END 2017-07-27 21:43 | disposition home or self-care (01) ==
LOC: ED 18:59
DX: F41.9 Anxiety disorder, unspecified (principal); R00.2 Palpitations; Z87.891 Personal history of nicotine dependence

== ENCOUNTER 2017-08-11 13:54 | Emergency (ER) | payer OTHER ==
[2017-08-11 13:55] VITALS: BMI 21.5
[2017-08-11 14:21] VITALS: RESP 18
--- NOTE | 2017-08-11 14:38 | ED PDOC ---
Arrival/HPI - General Chief Complaint: Dizziness/Lightheaded Time Seen by Provider: 08/11/17 14:36 Historian: Patient - History of Present Illness Narrative History of Present Illness (Text): 08/11/17 14:35 A 27 year old male, whose past medical history includes GERD, presents to the emergency department complaining of dizziness for few months. States today he thought he was going to fall and had to sit down due to symptom. Patient was given Valium and Meclizine as prescribed by PMD. Has been instructed not to takes both medications at the same time, but instead to take on or the other. Patient reports also experiencing lightheadedness, nausea, and chest pain (2 years). Patient has seen skin drier, whom states he has no cardiac issues. Patient denies any vomiting, or any other complaints at this time. 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 Patient has taken Valium at this time here in the emergency room. PMD: Dr. Mayer Past Medical History - Provider Review Nursing Documentation Reviewed: Yes - Past History Past History: No Previous - Infectious Disease Hx of Infectious Diseases: None - Tetanus Immunization Tetanus Immunization: Unknown - Past Medical History Past Medical History: No Previous - Cardiac Hx Cardiac Disorders: Yes Hx Cardiac Arrhythmia: Yes - Pulmonary Hx Respiratory Disorders: No - Neurological Hx Neurological Disorder: No - HEENT Hx HEENT Disorder: No - Renal Hx Renal Disorder: No - Endocrine/Metabolic Hx Endocrine Disorders: No - Hematological/Oncological Hx Blood Disorders: No - Integumentary Hx Dermatological Disorder: No - Musculoskeletal/Rheumatological Hx Musculoskeletal Disorders: No Hx Falls: No - Gastrointestinal Hx Gastrointestinal Disorders: Yes Hx Gastroesophageal Reflux: Yes - Genitourinary/Gynecological Hx Genitourinary Disorders: No - Psychiatric Hx Psychophysiologic Disorder: Yes Hx Anxiety: Yes Hx Depression: Yes Hx Substance Use: No - Past Surgical History Past Surgical History: No Previous - Surgical History Hx Cholecystectomy: Yes - Anesthesia Hx Anesthesia: Yes Hx Anesthesia Reactions: No Hx Malignant Hyperthermia: No - Suicidal Assessment Feels Threatened In Home Enviroment: No Family/Social History - Physician Review Nursing Documentation Reviewed: Yes Family/Social History: No Known Family HX Smoking Status: Former Smoker Hx Alcohol Use: Yes Amount per day: 4 Hx Substance Use: No Hx Substance Use Treatment: No Allergies/Home Meds Allergies/Adverse Reactions: Allergies No Known Allergies Allergy (Verified 08/11/17 14:13) Home Medications: Home Meds Medication Instructions Recorded Confirmed Metoprolol Tartrate [Lopressor] 25 mg PO HS 08/11/17 08/11/17 Review of Systems - Physician Review All systems were reviewed & negative as marked: Yes - Review of Systems Cardiovascular: Chest Pain Gastrointestinal: Nausea. absent: Vomiting Neurological: Dizziness (and lightheadedness) Physical Exam Vital Signs Temp Pulse Resp BP Pulse Ox 08/11/17 14:20 98.0 F 86 18 100/73 99 08/11/17 14:13 98.0 F 86 16 100/73 99 Temperature: Afebrile Blood Pressure: Normal Pulse: Regular Respiratory Rate: Normal Appearance: Positive for: Well-Appearing, Non-Toxic, Comfortable Pain Distress: None Mental Status: Positive for: Alert and Oriented X 3 - Systems Exam Head: Present: Atraumatic, Normocephalic Pupils: Present: PERRL Extroacular Muscles: Present: EOMI Conjunctiva: Present: Normal Mouth: Present: Moist Mucous Membranes Neck: Present: Normal Range of Motion Respiratory/Chest: Present: Clear to Auscultation, Good Air Exchange. No: Respiratory Distress, Accessory Muscle Use Cardiovascular: Present: Regular Rate and Rhythm, Normal S1, S2. No: Murmurs Abdomen: No: Tenderness, Distention, Peritoneal Signs Back: Present: Normal Inspection Upper Extremity: Present: Normal Inspection. No: Cyanosis, Edema Lower Extremity: Present: Normal Inspection. No: Edema Neurological: Present: GCS=15, CN II-XII Intact, Speech Normal Skin: Present: Warm, Dry, Normal Color. No: Rashes Psychiatric: Present: Alert, Oriented x 3, Normal Insight, Normal Concentration Medical Decision Making ED Course and Treatment: 08/11/17 14:45 Impression: 27 year old male with dizziness and lightheadedness. No acute findings on physical examination. Plan: -- Zofran -- NACL 0/9% 1000 ML Routine -- Reassess and disposition Progress Notes: 08/11/17 16:06 Patient is feeling better and will be discharged accordingly. - Medication Orders Current Medication Orders: Discontinued Medications Ondansetron HCl (Zofran Inj) 4 mg IVP STAT STA Stop: 08/11/17 14:41 Last Admin: 08/11/17 15:44 Dose: 4 mg IVP Administration Document 08/11/17 15:44 EQ (Rec: 08/11/17 15:44 EQ [id number]) Charges for Administration # of IVP Administrations 1 - Scribe Statement The provider has reviewed the documentation as recorded by the Scribe Kelli Galindo Provider Scribe Attestation: All medical record entries made by the Scribe were at my direction and personally dictated by me. I have reviewed the chart and agree that the record accurately reflects my personal performance of the history, physical exam, medical decision making, and the department course for this patient. I have also personally directed, reviewed, and agree with the discharge instructions and disposition. Disposition/Present on Arrival - Present on Arrival Any Indicators Present on Arrival: No History of DVT/PE: No History of Uncontrolled Diabetes: No Urinary Catheter: No History of Decub. Ulcer: No History Surgical Site Infection Following: None - Disposition Have Diagnosis and Disposition been Completed?: No Diagnosis: Dizziness Disposition: HOME/ ROUTINE Disposition Time: 16:11 Patient Problems: Current Active Problems Problem Status Onset Dizziness Acute Condition: GOOD Discharge Instructions (ExitCare): Dizziness, Nonvertigo, (DC) Prescriptions: Meclizine [Meclizine*] 25 mg PO Q6 #30 tab Forms: [employer] (Chinese)
[2017-08-11 16:17] VITALS: BP 102/78; PULSE 79; TEMP 98.1; O2SAT 100
== END 2017-08-11 16:50 | disposition home or self-care (01) ==
LOC: ED 13:54
DX: R42 Dizziness and giddiness (principal); Z87.891 Personal history of nicotine dependence
CPT/HCPCS: 96374; 99285; J2405; J7030

== ENCOUNTER 2017-09-06 16:56 | Emergency (ER) | payer OTHER ==
[2017-09-06 16:59] VITALS: BMI 22.8
[2017-09-06 17:02] VITALS: RESP 18; TEMP 97.7
[2017-09-06] MEDS ORDERED: Sodium Chloride 0.9% 1,000 ML IV STA (17:21)
--- NOTE | 2017-09-06 17:21 | ED PDOC ---
Arrival/HPI - General Chief Complaint: Dizziness/Lightheaded Time Seen by Provider: 09/06/17 17:11 Historian: Patient - History of Present Illness Narrative History of Present Illness (Text): 09/06/17 17:12 27 y/o male, pmh including chrnic vertigo, nkda, c/o feeling vertigo with room spinning sensation x 4 months with no fall or trauma. Pt. stated that he has on and off vertigo room spinning sensation x 4 months, seen by the neurologist and negative head MRI as per patient, seen by the ENT which he is on the prednisone for the past 2 weeks and scheduled for follow up, been seeing pmd which placed on the meclizine with relief but out of the medication today, feeling room spinning sensation again, no numbness or tingling, no chest pain or shortness of breath, no other medical or psychological complaints. Past Medical History - Provider Review Nursing Documentation Reviewed: Yes - Past History Past History: No Previous - Infectious Disease Hx of Infectious Diseases: None - Tetanus Immunization Tetanus Immunization: Unknown - Past Medical History Past Medical History: No Previous - Cardiac Hx Cardiac Disorders: Yes Hx Cardiac Arrhythmia: Yes - Pulmonary Hx Respiratory Disorders: No - Neurological Hx Neurological Disorder: No - HEENT Hx HEENT Disorder: No - Renal Hx Renal Disorder: No - Endocrine/Metabolic Hx Endocrine Disorders: No - Hematological/Oncological Hx Blood Disorders: No - Integumentary Hx Dermatological Disorder: No - Musculoskeletal/Rheumatological Hx Musculoskeletal Disorders: No Hx Falls: No - Gastrointestinal Hx Gastrointestinal Disorders: Yes Hx Gastroesophageal Reflux: Yes - Genitourinary/Gynecological Hx Genitourinary Disorders: No - Psychiatric Hx Psychophysiologic Disorder: Yes Hx Anxiety: Yes Hx Depression: Yes Hx Substance Use: No - Past Surgical History Past Surgical History: No Previous - Surgical History Hx Cholecystectomy: Yes - Anesthesia Hx Anesthesia: Yes Hx Anesthesia Reactions: No Hx Malignant Hyperthermia: No - Suicidal Assessment Feels Threatened In Home Enviroment: No Family/Social History - Physician Review Nursing Documentation Reviewed: Yes Family/Social History: Unknown Family HX Smoking Status: Former Smoker Hx Alcohol Use: Yes Frequency of alcohol use: Socially Amount per day: 4 Hx Substance Use: No Hx Substance Use Treatment: No Allergies/Home Meds Allergies/Adverse Reactions: Allergies No Known Allergies Allergy (Verified 08/11/17 14:13) Home Medications: Home Meds Medication Instructions Recorded Confirmed Metoprolol Tartrate [Lopressor] 12.5 mg PO HS 08/11/17 09/06/17 ALPRAZolam [Xanax] 1 tab PO PRN PRN 09/06/17 09/06/17 diaZEpam [Valium] 0.5 mg PO PRN PRN 09/06/17 09/06/17 Review of Systems - Review of Systems Constitutional: absent: Fatigue, Fevers Eyes: absent: Vision Changes ENT: absent: Hearing Changes Respiratory: absent: SOB, Cough Cardiovascular: absent: Chest Pain Gastrointestinal: absent: Abdominal Pain, Nausea, Vomiting Musculoskeletal: absent: Arthralgias, Back Pain Skin: absent: Rash, Pruritis Neurological: Dizziness. absent: Headache, Focal Weakness, Gait Changes, Speech Changes, Facial Droop Psychiatric: absent: Anxiety, Depression, Suicidal Ideation Physical Exam Vital Signs Reviewed: Yes Vital Signs Temp Pulse Resp BP Pulse Ox 09/06/17 17:01 97.7 F 85 18 116/76 98 Temperature: Afebrile Blood Pressure: Normal Pulse: Regular Respiratory Rate: Normal Appearance: Positive for: Well-Appearing, Non-Toxic, Comfortable Pain Distress: None Mental Status: Positive for: Alert and Oriented X 3 - Systems Exam Head: Present: Atraumatic, Normocephalic, Other (no facial bony tenderness). No : Tenderness, Contusion, Swelling, Ecchymosis, Abrasion, Laceration Pupils: Present: PERRL Extroacular Muscles: Present: EOMI Conjunctiva: Present: Normal Mouth: Present: Moist Mucous Membranes Pharnyx: No: ERYTHEMA, EXUDATE, TONSILS ENLARGED Neck: Present: Normal Range of Motion Respiratory/Chest: Present: Clear to Auscultation, Good Air Exchange. No: Respiratory Distress, Accessory Muscle Use Cardiovascular: Present: Regular Rate and Rhythm, Normal S1, S2. No: Murmurs Abdomen: No: Tenderness, Distention, Peritoneal Signs, Rebound, Guarding, Hernias Back: Present: Normal Inspection Upper Extremity: Present: Normal Inspection. No: Cyanosis, Edema Lower Extremity: Present: Normal Inspection. No: Edema Neurological: Present: GCS=15, CN II-XII Intact, Speech Normal, Motor Func Grossly Intact (+dixhall pike, normal finger to nose test, normal heel to madrdi test. ), Gait Normal, Memory Normal Skin: Present: Warm, Dry, Normal Color. No: Rashes Psychiatric: Present: Alert, Oriented x 3, Normal Insight, Normal Concentration Medical Decision Making ED Course and Treatment: 09/06/17 17:35 -labs/ua/uds -ekg -CT head -IVF/meclizine -Observe and reassess 09/06/17 19:46 -CT Head: Normal CT of the Head. -Labs show no acute findings -UA show no UTI -UDS show no acute findings -Pt. feels relief, dizziness resolved, walking with normal gait and posture independently without assistance, no focal neurological deficit. -Discharge home with meclizine, stay hydrated, bed rest, follow up with your own pmd and neurologist within 2 days, return to the ER for any new or worsening signs or symptoms. - Lab Interpretations Lab Results: 09/06/17 18:29 09/06/17 18:29 Lab Results 09/06/17 19:20: Urine Opiates Screen Negative, Urine Methadone Screen Negative, Ur Barbiturates Screen Negative, Ur Phencyclidine Scrn Negative, Ur Amphetamines Screen Negative, U Benzodiazepines Scrn Negative, U Oth Cocaine Metabols Pending, U Cannabinoids Screen Negative 09/06/17 19:20: Urine Color Yellow, Urine Appearance Clear, Urine pH 6.5, Ur Specific [place] <= 1.005, Urine Protein Negative, Urine Glucose (UA) Negative, Urine Ketones Negative, Urine Blood Negative, Urine Nitrate Negative, Urine Bilirubin Negative, Urine Urobilinogen 0.2, Ur Leukocyte Esterase Negative 09/06/17 18:29: WBC 6.6, RBC 5.66, Hgb 15.2, Hct 44.7, MCV 79.0 L, MCH 26.9, MCHC 34.0, RDW 13.3, Plt Count 199, MPV 10.5, Gran % 57.2, Lymph % (Auto) 33.4, [place] % (Auto) 7.8 H, Eos % (Auto) 1.4 L, Baso % (Auto) 0.2, Gran # 3.80, Lymph # (Auto) 2.2, [place] # (Auto) 0.5, Eos # (Auto) 0.1, Baso # (Auto) 0.01 09/06/17 18:29: Sodium 143, Potassium 4.0, Chloride 100, Carbon Dioxide 29, Anion Gap 19, BUN 16, Creatinine 0.9, Est GFR ( Amer) > 60, Est GFR (Non- Af Amer) > 60, Random Glucose 85, Calcium 9.7, Magnesium 2.0, Total Bilirubin 0.4, AST 24, ALT 36, Alkaline Phosphatase 64, Total Creatine Kinase 33 L, Total Protein 7.2, Albumin 4.5, Globulin 2.7, Albumin/Globulin Ratio 1.7 - RAD Interpretation Radiology Orders: 09/06/17 17:21 HEAD W/O CONTRAST [CT] Stat PROCEDURE: CT HEAD WITHOUT CONTRAST. HISTORY: Chronic vertigo x 4 months COMPARISON: None comparison made with CT scan brain 06/15/2017. TECHNIQUE: Axial computed tomography images were obtained through the head/brain without intravenous contrast. Radiation dose: Total exam DLP = 1116.96 point mGy-cm. This CT exam was performed using one or more of the following dose reduction techniques: Automated exposure control, adjustment of the mA and/or kV according to patient size, and/or use of iterative reconstruction technique. FINDINGS: HEMORRHAGE: No acute parenchymal, subarachnoid or extra-axial hemorrhage. BRAIN: No evidence of large acute infarct. No obvious parenchymal nor extra-axial mass or collection seen on this noncontrast study. . VENTRICLES: Unremarkable. No hydrocephalus. CALVARIUM: Unremarkable. PARANASAL SINUSES: Unremarkable as visualized. No significant inflammatory changes. MASTOID AIR CELLS: Unremarkable as visualized. No inflammatory changes. OTHER FINDINGS: None. IMPRESSION: Normal CT of the Head. Civil Geotechnical Engineer: Radiologist - Medication Orders Current Medication Orders: Discontinued Medications Sodium Chloride (Sodium Chloride 0.9%) 1,000 mls @ 999 mls/hr IV .Q1H1M STA Stop: 09/06/17 18:21 Last Admin: 09/06/17 18:16 Dose: 999 mls/hr eMAR Start Stop Document 09/06/17 18:16 EQ (Rec: 09/06/17 18:16 EQ [id number]) Intravenous Solution Start Date 09/06/17 Start Time 18:16 Meclizine HCl (Antivert) 50 mg PO STAT STA Stop: 09/06/17 17:22 Last Admin: 09/06/17 18:16 Dose: 50 mg - PA / COOKER CASING / Resident Statement MD/DO has reviewed & agrees with the documentation as recorded. Disposition/Present on Arrival - Present on Arrival Any Indicators Present on Arrival: No History of DVT/PE: No History of Uncontrolled Diabetes: No Urinary Catheter: No History of Decub. Ulcer: No History Surgical Site Infection Following: None - Disposition Have Diagnosis and Disposition been Completed?: Yes Diagnosis: Vertigo Disposition: HOME/ ROUTINE Disposition Time: 17:35 Patient Plan: Discharge Patient Problems: Current Active Problems Problem Status Onset Vertigo Acute Condition: IMPROVED Additional Instructions: -Discharge home with meclizine, stay hydrated, bed rest, follow up with your own pmd and neurologist within 2 days, return to the ER for any new or worsening signs or symptoms. Prescriptions: Meclizine [Antivert] 25 mg PO Q6 #30 tab Referrals: Pia Tee MD [Staff Provider] - Follow up with primary Shannon Mayer MD [Family Provider] - Follow up with primary Forms: WORK NOTE
--- NOTE | 2017-09-06 18:33 | CT ---
PROCEDURE: CT HEAD WITHOUT CONTRAST. HISTORY: Chronic vertigo x 4 months COMPARISON: None comparison made with CT scan brain 06/15/2017. TECHNIQUE: Axial computed tomography images were obtained through the head/brain without intravenous contrast. Radiation dose: Total exam DLP = 1116.96 point mGy-cm. This CT exam was performed using one or more of the following dose reduction techniques: Automated exposure control, adjustment of the mA and/or kV according to patient size, and/or use of iterative reconstruction technique. FINDINGS: HEMORRHAGE: No acute parenchymal, subarachnoid or extra-axial hemorrhage. BRAIN: No evidence of large acute infarct. No obvious parenchymal nor extra-axial mass or collection seen on this noncontrast study. . VENTRICLES: Unremarkable. No hydrocephalus. CALVARIUM: Unremarkable. PARANASAL SINUSES: Unremarkable as visualized. No significant inflammatory changes. MASTOID AIR CELLS: Unremarkable as visualized. No inflammatory changes. OTHER FINDINGS: None. IMPRESSION: Normal CT of the Head.
[2017-09-06 18:35] LABS: BASO # 0.01 K/mm3 (0.0-2.0); BASO % 0.2 % (0.0-3.0); EOS # 0.1 (0.0-0.7); EOS % 1.4 % (1.5-5.0); GRAN # 3.8 (1.4-6.5); GRAN % 57.2 % (50.0-68.0); HEMOGLOBIN 15.2 g/dL (14.0-18.0); LYMPH # 2.2 (1.2-3.4); LYMPH % 33.4 % (22.0-35.0); MEAN CORPUSCULAR HEMOGLOBIN 26.9 pg (25.0-35.0); MEAN PLATELET VOLUME 10.5 fl (7.0-11.0); MONO # 0.5 (0.1-0.6); MONO % 7.8 % (1.0-6.0); RBC 5.66 10^6/uL (3.5-6.1); RED CELL DISTRIBUTION WIDTH 13.3 % (11.5-14.5); WHITE BLOOD COUNT 6.6 10^3/ul (4.5-11.0)
[2017-09-06 18:43] LABS: ALB/GLOB RATIO 1.7 (1.1-1.8); ALBUMIN 4.5 g/dL (3.0-4.8); ALT/SGPT 36 U/L (7-56); AST/SGOT 24 U/L (17-59); BLOOD UREA NITROGEN 16 mg/dL (7-21); CALCIUM 9.7 mg/dL (8.4-10.5); GFR AFRICAN-AMERICAN > 60; GFR NON-AFRICAN AMERICAN > 60
[2017-09-06 19:30] LABS: PH,URINE 6.5 (4.7-8.0); URINE BILIRUBIN NEGATIVE (NEGATIVE); URINE BLOOD NEGATIVE (NEGATIVE); URINE GLUCOSE (UA) NEGATIVE (NEGATIVE); URINE LEUKOCYTE ESTERASE NEGATIVE Leu/uL (NEGATIVE); URINE PROTEIN NEGATIVE mg/dL (<30 mg/dL); URINE UROBILINOGEN 0.2 E.U./dL (<1 E.U./dL)
[2017-09-06 19:31] LABS: URINE APPEARANCE CLEAR (CLEAR); URINE COLOR YELLOW (YELLOW)
[2017-09-06 19:45] LABS: BENZODIAZEPINES, UR NEGATIVE (NEGATIVE)
[2017-09-06 19:51] LABS: BARBITURATES, UR NEGATIVE (NEGATIVE); OPIATES, UR NEGATIVE (NEGATIVE); PHENCYCLIDINE, UR NEGATIVE (NEGATIVE)
[2017-09-06 21:26] VITALS: BP 122/72; PULSE 73; O2SAT 100
== END 2017-09-06 20:20 | disposition home or self-care (01) ==
LOC: ED 16:56
DX: R42 Dizziness and giddiness (principal); Z87.891 Personal history of nicotine dependence
CPT/HCPCS: 70450; 80053; 80324; 80345; 80346; 80349; 80353; 80358; 80361; 81003; 82550; 83735; 83992; 85025; 99285; J7030

== ENCOUNTER 2017-09-15 12:59 | Emergency (ER) | payer OTHER ==
[2017-09-15 12:59] VITALS: BMI 22.8
[2017-09-15 13:24] VITALS: PULSE 77; RESP 18
--- NOTE | 2017-09-15 14:09 | ED PDOC ---
Arrival/HPI - General Chief Complaint: Dizziness/Lightheaded - History of Present Illness Narrative History of Present Illness (Text): Patient is a 27 is a year old male with a past medical history of generalized anxiety disorder who presents to the emergency room for evaluation and treatment of dizziness and nausea which began 2 days ago after stopping his prescribed klonopin. 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 Admits to having the sensation of the room spinning and having intermittent blurry vision. Also admits to associated nausea. Denies fever, chills, chest pain, shortness of breath, abdominal pain, vomiting, diarrhea, constipation, and urinary symptoms. 09/15/17 13:57 Past Medical History - Provider Review Nursing Documentation Reviewed: Yes - Travel History Have you recently traveled outside [place] w/in the past 3 mons?: No - Past History Past History: No Previous - Infectious Disease Hx of Infectious Diseases: None - Tetanus Immunization Tetanus Immunization: Unknown - Past Medical History Past Medical History: No Previous - Cardiac Hx Cardiac Disorders: Yes Hx Cardiac Arrhythmia: Yes - Pulmonary Hx Respiratory Disorders: No - Neurological Hx Neurological Disorder: No - HEENT Hx HEENT Disorder: No - Renal Hx Renal Disorder: No - Endocrine/Metabolic Hx Endocrine Disorders: No - Hematological/Oncological Hx Blood Disorders: No - Integumentary Hx Dermatological Disorder: No - Musculoskeletal/Rheumatological Hx Musculoskeletal Disorders: No Hx Falls: No - Gastrointestinal Hx Gastrointestinal Disorders: Yes Hx Gastroesophageal Reflux: Yes - Genitourinary/Gynecological Hx Genitourinary Disorders: No - Psychiatric Hx Psychophysiologic Disorder: Yes Hx Anxiety: Yes Hx Depression: Yes Hx Substance Use: No - Past Surgical History Past Surgical History: No Previous - Surgical History Hx Cholecystectomy: Yes - Anesthesia Hx Anesthesia: Yes Hx Anesthesia Reactions: No Hx Malignant Hyperthermia: No - Suicidal Assessment Feels Threatened In Home Enviroment: No Family/Social History - Physician Review Nursing Documentation Reviewed: Yes Family/Social History: Unknown Family HX Smoking Status: Former Smoker Hx Alcohol Use: Yes Amount per day: 4 Hx Substance Use: No Hx Substance Use Treatment: No Allergies/Home Meds Allergies/Adverse Reactions: Allergies No Known Allergies Allergy (Verified 08/11/17 14:13) Home Medications: Home Meds Medication Instructions Recorded Confirmed Metoprolol Tartrate [Lopressor] 12.5 mg PO HS 08/11/17 09/15/17 ALPRAZolam [Xanax] 1 tab PO PRN PRN 09/06/17 09/15/17 diaZEpam [Valium] 0.5 mg PO PRN PRN 09/06/17 09/15/17 Clonazepam [Klonopin] 0.5 mg PO DAILY 09/15/17 09/15/17 Review of Systems - Review of Systems Constitutional: Normal Eyes: Normal ENT: Normal Respiratory: Normal Cardiovascular: Normal Gastrointestinal: Nausea Genitourinary Male: Normal Musculoskeletal: Normal Skin: Normal Neurological: Dizziness Endocrine: Normal Hemo/Lymphatic: Normal Psychiatric: Normal Physical Exam Vital Signs Reviewed: Yes Vital Signs Temp Pulse Resp BP Pulse Ox 09/15/17 13:00 98.7 F 77 18 118/72 98 Temperature: Afebrile Blood Pressure: Normal Pulse: Regular Respiratory Rate: Normal Appearance: Positive for: Well-Appearing, Non-Toxic, Comfortable Pain Distress: None Mental Status: Positive for: Alert and Oriented X 3 - Systems Exam Head: Present: Atraumatic, Normocephalic Pupils: Present: PERRL Extroacular Muscles: Present: EOMI Conjunctiva: Present: Normal Mouth: Present: Moist Mucous Membranes Neck: Present: Normal Range of Motion Respiratory/Chest: Present: Clear to Auscultation, Good Air Exchange. No: Respiratory Distress, Accessory Muscle Use Cardiovascular: Present: Regular Rate and Rhythm, Normal S1, S2. No: Murmurs Abdomen: No: Tenderness, Distention, Peritoneal Signs Back: Present: Normal Inspection Upper Extremity: Present: Normal Inspection. No: Cyanosis, Edema Lower Extremity: Present: Normal Inspection. No: Edema Neurological: Present: GCS=15, CN II-XII Intact, Speech Normal Skin: Present: Warm, Dry, Normal Color. No: Rashes Psychiatric: Present: Alert, Oriented x 3, Anxious Medical Decision Making ED Course and Treatment: Patient is a 27 is a year old male with a past medical history of generalized anxiety disorder who presents to the emergency room for evaluation and treatment of dizziness and nausea which began 2 days ago after stopping his prescribed klonopin. Assessment and Plan: Benzodiazepine Withdrawal - monitor for seizure like activity - zofran - meclizine 09/15/17 14:11 - stable vitals- no hypertension, no tachycardia 09/15/17 15:11 - patient states sxs minimally improved - patient denies Suicidal ideation and homicidal ideation - patient agrees to follow up with primary care physician and make appt with psychiatry - Medication Orders Current Medication Orders: Discontinued Medications Meclizine HCl (Antivert) 12.5 mg PO STAT STA Stop: 09/15/17 13:58 Last Admin: 09/15/17 14:07 Dose: 12.5 mg Ondansetron HCl (Zofran Tab) 8 mg PO STAT STA Stop: 09/15/17 14:02 Last Admin: 09/15/17 14:07 Dose: 8 mg Disposition/Present on Arrival - Present on Arrival Any Indicators Present on Arrival: No History of DVT/PE: No History of Uncontrolled Diabetes: No Urinary Catheter: No History of Decub. Ulcer: No History Surgical Site Infection Following: None - Disposition Have Diagnosis and Disposition been Completed?: Yes Diagnosis: Anxiety, Withdrawal complaint Disposition: HOME/ ROUTINE Disposition Time: 15:15 Condition: GOOD Discharge Instructions (ExitCare): Anxiety, Adult (DC) Additional Instructions: JOANNA HUMMEL, thank you for letting us take care of you today. Your provider was Trina Kirk MD and you were treated for WITHDRAWLS. The emergency medical care you received today was directed at your acute symptoms. If you were prescribed any medication, please fill it and take as directed. It may take several days for your symptoms to resolve. Return to the Emergency Department if your symptoms worsen, do not improve, or if you have any other problems. Please contact your doctor or call one of the physicians/clinics you have been referred to that are listed on the Patient Visit Information form that is included in your discharge packet. Bring any paperwork you were given at discharge with you along with any medications you are taking to your follow up visit. Our treatment cannot replace ongoing medical care by a primary care provider outside of the emergency department. Thank you for allowing the [facility] [employer] team to be part of your care today. If you had an X-Ray or CT scan: A Radiologist will review the ED reading if any change in treatment is needed we will contact you. If you had a blood, urine, or wound culture: It will take several days for the results, if any change in treatment is needed we will contact you. If you had an STI test: It will take 48 hours for the results. Please call after 1 week if you have not heard back. Please follow up with primary care physician and psychiatry. Forms: [employer] ([place]ican)
[2017-09-15 15:32] VITALS: BP 115/70; TEMP 98.5; O2SAT 99
== END 2017-09-15 15:30 | disposition home or self-care (01) ==
LOC: ED 12:59
DX: F41.9 Anxiety disorder, unspecified (principal); F19.939 Other psychoactive substance use, unspecified with withdrawal, unspecified

== ENCOUNTER 2017-09-16 12:46 | Emergency (ER) | payer OTHER ==
[2017-09-16 12:46] VITALS: BMI 22.8
[2017-09-16 13:02] VITALS: RESP 18
--- NOTE | 2017-09-16 13:05 | ED PDOC ---
Arrival/HPI - General Chief Complaint: Dizziness/Lightheaded Time Seen by Provider: 09/16/17 12:48 Historian: Patient - History of Present Illness Narrative History of Present Illness (Text): 09/16/17 13:15 27 year old male, whose PMH includes depression, anxiety, and cardiac arrhythimia, who presents to the emergency department complaining of withdrawal symptoms from Benzodiazpeine medication since 5 days ago. patient reports feeling dizziness associated with nausea, and weakness. Patient notes he was on Valium and Xanax, but stopped taking it and the symptoms have become worse. states he last took 5 days ago. No other complaints were made. PMD: Dr. Mayer 09/16/17 16:28 Time/Duration: < week Symptom Onset: Gradual Symptom Course: Worsening Context: Home Past Medical History - Provider Review Nursing Documentation Reviewed: Yes - Past History Past History: No Previous - Infectious Disease Hx of Infectious Diseases: None - Tetanus Immunization Tetanus Immunization: Unknown - Past Medical History Past Medical History: No Previous - Cardiac Hx Cardiac Disorders: Yes Hx Cardiac Arrhythmia: Yes - Pulmonary Hx Respiratory Disorders: No - Neurological Hx Neurological Disorder: No - HEENT Hx HEENT Disorder: No - Renal Hx Renal Disorder: No - Endocrine/Metabolic Hx Endocrine Disorders: No - Hematological/Oncological Hx Blood Disorders: No - Integumentary Hx Dermatological Disorder: No - Musculoskeletal/Rheumatological Hx Musculoskeletal Disorders: No Hx Falls: No - Gastrointestinal Hx Gastrointestinal Disorders: Yes Hx Gastroesophageal Reflux: Yes - Genitourinary/Gynecological Hx Genitourinary Disorders: No - Psychiatric Hx Psychophysiologic Disorder: Yes Hx Anxiety: Yes Hx Depression: Yes Hx Substance Use: No - Past Surgical History Past Surgical History: No Previous - Surgical History Hx Cholecystectomy: Yes - Anesthesia Hx Anesthesia: Yes Hx Anesthesia Reactions: No Hx Malignant Hyperthermia: No - Suicidal Assessment Feels Threatened In Home Enviroment: No Family/Social History - Physician Review Nursing Documentation Reviewed: Yes Family/Social History: Unknown Family HX Smoking Status: Former Smoker Hx Alcohol Use: Yes Amount per day: 4 Hx Substance Use: No Hx Substance Use Treatment: No Allergies/Home Meds Allergies/Adverse Reactions: Allergies No Known Allergies Allergy (Verified 08/11/17 14:13) Home Medications: Home Meds Medication Instructions Recorded Confirmed No Known Home Med 09/16/17 09/16/17 Review of Systems - Review of Systems Constitutional: Fatigue. absent: Fevers ENT: absent: Sore Throat Respiratory: absent: SOB Cardiovascular: absent: Chest Pain Gastrointestinal: Nausea. absent: Abdominal Pain, Vomiting Genitourinary Male: absent: Dysuria Musculoskeletal: absent: Back Pain Skin: absent: Rash Neurological: Dizziness. absent: Headache Physical Exam Vital Signs Reviewed: Yes Vital Signs Temp Pulse Resp BP Pulse Ox 09/16/17 15:52 97.9 F 85 18 112/72 99 09/16/17 13:02 97.8 F 79 18 102/68 98 Temperature: Afebrile Blood Pressure: Normal Pulse: Regular Respiratory Rate: Normal Appearance: Positive for: Well-Appearing, Non-Toxic, Comfortable Pain Distress: None Mental Status: Positive for: Alert and Oriented X 3 - Systems Exam Head: Present: Atraumatic, Normocephalic Pupils: Present: PERRL Extroacular Muscles: Present: EOMI Conjunctiva: Present: Normal Respiratory/Chest: Present: Clear to Auscultation, Good Air Exchange. No: Respiratory Distress, Accessory Muscle Use, Wheezes, Decreased Breath Sounds, Rales, Retracting, Rhonchi Cardiovascular: Present: Regular Rate and Rhythm, Normal S1, S2. No: Murmurs Abdomen: Present: Normal Bowel Sounds. No: Tenderness, Distention, Peritoneal Signs, Rebound, Guarding Neurological: Present: GCS=15 Skin: Present: Warm, Dry, Normal Color. No: Rashes Psychiatric: Present: Alert, Oriented x 3, Normal Insight, Normal Concentration Medical Decision Making ED Course and Treatment: 09/16/17 Impression: 27 year old male with unremarkable physical exam complaining of dizziness, nausea, and weakness s/p Benzos withdrawal since 5 days. Plan: -- Labs -- Zofran -- Urinalysis -- Reassess and disposition Progress Notes: 09/16/17 13:54 EKG: Ordered, reviewed, and independently interpreted the EKG. Rate : 66 BPM Rhythm : NSR Interpretation : Repolarization. No ST-segment elevations or depressions, no T- wave inversions, normal intervals. 09/16/17 14:20 Patient is medically cleared 09/16/17 15:10 Chest X-ray: Creator : John Thurman MD COMPARISON: 07/27/2017 FINDINGS: LUNGS: No active pulmonary disease. PLEURA: No significant pleural effusion identified, no pneumothorax apparent. CARDIOVASCULAR :Normal. OSSEOUS STRUCTURES: No significant abnormalities. VISUALIZED UPPER ABDOMEN: Normal. OTHER FINDINGS: None. IMPRESSION: No active disease. No significant interval change compared to the prior examination(s). 09/16/17 16:28 pt seen by pes worker for transfer to [facility] for detox, as bed is available. pt agrees to transfer. case reviewed by signal worker helper. does notmeet detox criteria as benzo neg in ua. - Lab Interpretations Lab Results: 09/16/17 13:50 09/16/17 13:50 Lab Results 09/16/17 13:50: Alcohol, Quantitative < 10 09/16/17 13:50: Salicylates < 1 L, Acetaminophen < 10.0 L 09/16/17 13:50: Urine Opiates Screen Negative, Urine Methadone Screen Negative, Ur Barbiturates Screen Negative, Ur Phencyclidine Scrn Negative, Ur Amphetamines Screen Negative, U Benzodiazepines Scrn Negative, U Oth Cocaine Metabols Negative, U Cannabinoids Screen Negative 09/16/17 13:50: Sodium 141, Potassium 4.1, Chloride 103, Carbon Dioxide 28, Anion Gap 15, BUN 20, Creatinine 0.9, Est GFR ( Amer) > 60, Est GFR (Non- Af Amer) > 60, Random Glucose 86, Calcium 9.6, Magnesium 2.1, Total Bilirubin 0.8, AST 20, ALT 40, Alkaline Phosphatase 60, Total Protein 7.1, Albumin 4.4, Globulin 2.7, Albumin/Globulin Ratio 1.6 09/16/17 13:50: Urine Color Yellow, Urine Appearance Clear, Urine pH 7.0, Ur Specific [place] <= 1.005, Urine Protein Negative, Urine Glucose (UA) Negative, Urine Ketones Negative, Urine Blood Negative, Urine Nitrate Negative, Urine Bilirubin Negative, Urine Urobilinogen 0.2, Ur Leukocyte Esterase Negative 09/16/17 13:50: WBC 5.5, RBC 5.78, Hgb 15.6, Hct 45.6, MCV 78.9 L, MCH 27.0, MCHC 34.2, RDW 13.4, Plt Count 179, MPV 10.4, Gran % 55.4, Lymph % (Auto) 34.9, [place] % (Auto) 8.2 H, Eos % (Auto) 1.3 L, Baso % (Auto) 0.2, Gran # 3.05, Lymph # (Auto) 1.9, [place] # (Auto) 0.5, Eos # (Auto) 0.1, Baso # (Auto) 0.01 I have reviewed the lab results: Yes - RAD Interpretation Radiology Orders: 09/16/17 13:30 CXR [CHEST PORTABLE] [RAD] Stat - Medication Orders Current Medication Orders: Discontinued Medications Ondansetron HCl (Zofran Odt) 4 mg PO STAT STA Stop: 09/16/17 13:16 Last Admin: 09/16/17 13:54 Dose: 4 mg - Scribe Statement The provider has reviewed the documentation as recorded by the Silvanaibe Silvana Mccormack Provider Scribe Attestation: All medical record entries made by the Scribe were at my direction and personally dictated by me. I have reviewed the chart and agree that the record accurately reflects my personal performance of the history, physical exam, medical decision making, and the department course for this patient. I have also personally directed, reviewed, and agree with the discharge instructions and disposition. Disposition/Present on Arrival - Present on Arrival Any Indicators Present on Arrival: No History of DVT/PE: No History of Uncontrolled Diabetes: No Urinary Catheter: No History of Decub. Ulcer: No History Surgical Site Infection Following: None - Disposition Have Diagnosis and Disposition been Completed?: Yes Diagnosis: Dizziness Disposition: HOME/ ROUTINE Disposition Time: 04:00 Condition: STABLE Discharge Instructions (ExitCare): Dizziness, Nonvertigo, (DC) Additional Instructions: return toe r with worsening symptoms or concerns. Referrals: [facility] [Outside] - Follow up with primary [facility] [Outside] - Follow up with primary Forms: [employer] ([place])
[2017-09-16 14:05] LABS: BASO # 0.01 K/mm3 (0.0-2.0); BASO % 0.2 % (0.0-3.0); EOS # 0.1 (0.0-0.7); EOS % 1.3 % (1.5-5.0); GRAN # 3.05 (1.4-6.5); GRAN % 55.4 % (50.0-68.0); HEMOGLOBIN 15.6 g/dL (14.0-18.0); LYMPH # 1.9 (1.2-3.4); LYMPH % 34.9 % (22.0-35.0); MEAN CELL VOLUME 78.9 fl (80.0-105.0); MEAN CORPUSCULAR HGB CONC 34.2 g/dl (31.0-37.0); MEAN PLATELET VOLUME 10.4 fl (7.0-11.0); MONO # 0.5 (0.1-0.6); MONO % 8.2 % (1.0-6.0); RBC 5.78 10^6/uL (3.5-6.1); RED CELL DISTRIBUTION WIDTH 13.4 % (11.5-14.5); URINE BILIRUBIN NEGATIVE (NEGATIVE); URINE BLOOD NEGATIVE (NEGATIVE); URINE GLUCOSE (UA) NEGATIVE (NEGATIVE); URINE LEUKOCYTE ESTERASE NEGATIVE Leu/uL (NEGATIVE); URINE PROTEIN NEGATIVE mg/dL (<30 mg/dL); URINE UROBILINOGEN 0.2 E.U./dL (<1 E.U./dL); WHITE BLOOD COUNT 5.5 10^3/ul (4.5-11.0)
[2017-09-16 14:06] LABS: URINE APPEARANCE CLEAR (CLEAR); URINE COLOR YELLOW (YELLOW)
[2017-09-16 14:16] LABS: ACETAMINOPHEN < 10.0 ug/ml (10.0-20.0); SALICYLATE < 1 mg/dL (2.0-20.0)
[2017-09-16 14:17] LABS: ALB/GLOB RATIO 1.6 (1.1-1.8); ALBUMIN 4.4 g/dL (3.0-4.8); ALT/SGPT 40 U/L (7-56); AST/SGOT 20 U/L (17-59); BLOOD UREA NITROGEN 20 mg/dL (7-21); CALCIUM 9.6 mg/dL (8.4-10.5); GFR AFRICAN-AMERICAN > 60; GFR NON-AFRICAN AMERICAN > 60
[2017-09-16 14:27] LABS: BARBITURATES, UR NEGATIVE (NEGATIVE); BENZODIAZEPINES, UR NEGATIVE (NEGATIVE); OPIATES, UR NEGATIVE (NEGATIVE); PHENCYCLIDINE, UR NEGATIVE (NEGATIVE)
--- NOTE | 2017-09-16 15:11 | RAD ---
HISTORY: pysch COMPARISON: 07/27/2017 FINDINGS: LUNGS: No active pulmonary disease. PLEURA: No significant pleural effusion identified, no pneumothorax apparent. CARDIOVASCULAR: Normal. OSSEOUS STRUCTURES: No significant abnormalities. VISUALIZED UPPER ABDOMEN: Normal. OTHER FINDINGS: None. IMPRESSION: No active disease. No significant interval change compared to the prior examination(s).
[2017-09-16 15:55] VITALS: BP 112/72; PULSE 85; TEMP 97.9; O2SAT 99
--- NOTE | 2017-09-17 07:56 | CARD ---
APPROVED REPORT EKG Measurement Heart [id number] <Conclusion> Normal sinus rhythm ST elevation, probably due to early repolarization
== END 2017-09-16 15:52 | disposition home or self-care (01) ==
LOC: ED 12:46
DX: R42 Dizziness and giddiness (principal); F41.9 Anxiety disorder, unspecified; I49.9 Cardiac arrhythmia, unspecified; K21.9 Gastro-esophageal reflux disease without esophagitis